=== PATIENT | female | born 1940 | race Caucasian/White ===

== ENCOUNTER 2020-12-08 07:17 | Outpatient (REF) | payer OTHER, SELFPAY ==
--- NOTE | ~2020-12-08 | MM_ITS ---
EXAMINATION: MM SCREENING DIGITAL BREAST TOMOSYNTHESIS, BILATERAL CLINICAL INFORMATION: Screening. Asymptomatic. The lifetime risk of breast cancer based on the Tyrer-Cuzick Model is 2%. COMPARISON: Mammography: 10/01/2019, 09/24/2018, 09/20/2017 TECHNIQUE: Digital breast tomosynthesis is performed in both the craniocaudal and mediolateral oblique views along with computer-aided detection (CAD). Synthesized 2D images are generated from the tomosynthesis. FINDINGS: There are scattered areas of fibroglandular density (ACR BI-RADS breast composition Category b). There are no significant masses, abnormal calcifications, or other abnormalities. Parenchymal pattern is similar to prior exams. The axilla and skin contours are unremarkable. No significant changes. MM/MM tomosynthesis screening BI IMPRESSION: No mammographic evidence of malignancy. ASSESSMENT: BI-RADS 1: Negative RECOMMENDATION: Routine annual mammography screening. This patient's information was entered into a reminder system with a target due date for their next mammogram.
== END 2020-12-08 07:18 | disposition home or self-care (01) ==
LOC: HO.MAMMO 07:17
PROVIDERS: PCP Internal Medicine; Visit Provider Internal Medicine
DX: Z12.31 Encounter for screening mammogram for malignant neoplasm of breast (principal)
CPT/HCPCS: 77063; 77067

== ENCOUNTER 2021-12-10 07:21 | Outpatient (REF) | payer OTHER, SELFPAY ==
--- NOTE | ~2021-12-10 | MM_ITS ---
EXAMINATION: MM SCREENING DIGITAL BREAST TOMOSYNTHESIS, BILATERAL CLINICAL INFORMATION: Screening. Asymptomatic. The lifetime risk of breast cancer based on the Tyrer-Cuzick Model is 2%. COMPARISON: Mammography: 12/08/2020, 10/01/2019, 09/24/2018, 09/20/2017 TECHNIQUE: Digital breast tomosynthesis is performed in both the craniocaudal and mediolateral oblique views along with computer-aided detection (CAD). Synthesized 2D images are generated from the tomosynthesis. FINDINGS: There are scattered areas of fibroglandular density (ACR BI-RADS breast composition Category b). There are no significant masses, abnormal calcifications, or other abnormalities. Parenchymal pattern is similar to prior studies. There is stable benign parenchymal asymmetries right breast upper outer quadrant similar to prior exams. No developing density. The axilla are unremarkable. MM/MM tomosynthesis screening BI IMPRESSION: No mammographic evidence of malignancy. ASSESSMENT: BI-RADS 2: Benign RECOMMENDATION: Routine annual mammography screening. This patient's information was entered into a reminder system with a target due date for their next mammogram.
== END 2021-12-10 07:22 | disposition home or self-care (01) ==
LOC: HO.MAMMO 07:21
PROVIDERS: PCP Internal Medicine; Visit Provider Internal Medicine
DX: Z12.31 Encounter for screening mammogram for malignant neoplasm of breast (principal)
CPT/HCPCS: 77063; 77067

== ENCOUNTER 2022-02-01 06:47 | Outpatient (REF) | payer OTHER, SELFPAY ==
[2022-02-01 07:01] LABS: MANUAL DIFF FLAG NO
[2022-02-01 07:22] LABS: Basophils Absolute Auto 0.1 X10*3/uL (0.0-0.2); Basophils Percent Auto 1.3 % (0-2); Eosinophils Absolute Auto 0.2 X10*3/uL (0.0-0.4); Eosinophils Percent Auto 4.5 % (0-4); Hematocrit 42.4 % (37.0-47.0); Hemoglobin 13.7 g/dl (12.0-16.0); Imm Gran Abs Auto 0.02 X10*3/uL (0.00-0.03); Imm Gran Pct Auto 0.4 % (0.0-0.4); Lymphocytes Absolute Auto 1.7 X10*3/uL (1.2-4.9); Lymphocytes Percent Auto 37.9 % (20-40); Mean Corpuscular HGB Conc 32.3 g/dl (31.0-35.0); Mean Corpuscular Hemoglobin 28.6 pg (27.0-33.0); Mean Corpuscular Volume 88.5 fL (80.0-98.0); Mean Platelet Volume 9.8 fL (9.4-12.3); Monocytes Absolute Auto 0.5 X10*3/uL (0.1-1.2); Monocytes Percent Auto 11.2 % (2-11); Neutrophils Percent Auto 44.7 % (45-73); Platelet Count 222 X10*3/uL (160-400); Red Blood Count 4.79 X10*6/uL (4.20-5.50); Red Cell Distribution Width 13.9 % (11.0-16.0); White Blood Count 4.5 X10*3/uL (4.8-10.8)
[2022-02-01 07:51] LABS: Alanine Aminotransferase 12 U/L (0-31); Albumin Level 4.4 g/dL (3.5-5.0); Alkaline Phosphatase 93 U/L (39-117); Anion Gap 12 (12-20); Aspartate Amino Transferase 21 U/L (5-31); Bilirubin Total 0.6 mg/dL (0.0-1.0); Blood Urea Nitrogen 17 mg/dL (9-16); Calcium 9.7 mg/dL (8.4-10.2); Carbon Dioxide 26 mmol/L (22-29); Chloride 107 mmol/L (96-108); Cholesterol 298 mg/dL; Estimated Glomerular Filt Rate > 60; Glucose Fasting 104 mg/dL (60-99); HDL Cholesterol 59 mg/dL; LDL Cholesterol Calculated 195 mg/dl; Potassium 4.2 mmol/L (3.3-5.1); Sodium 141 mmol/L (135-145); Total Protein 7.5 g/dL (6.5-8.0); Triglycerides 220 mg/dL
[2022-02-01 08:05] LABS: TSH reflex Free T4 1.55 uIU/mL (0.32-4.0); Vitamin D 25-OH Total 32.9 ng/mL (>30)
[2022-02-01 08:28] LABS: Appearance Urine CLEAR; Color Urine YELLOW; Glucose Urine UA NEG (NEG); Leukocyte Esterase Urine TRACE (NEG); Nitrite Urine NEG (NEG); PH 5.5 (5.0-8.0); Specific Gravity - Urine >= 1.030 (1.005-1.025); UACC Culture Trigger NO; Urine Blood 1+ (NEG); Urine Ketones NEG (NEG); Urine Protein TRACE MG/DL (NEG-TRACE)
[2022-02-01 08:39] LABS: Squamous Epithelial Cell Urine TRACE /LPF; WBC Urine 0-2 /HPF (0-4)
== END 2022-02-01 06:48 | disposition home or self-care (01) ==
LOC: HO.LAB 06:47
PROVIDERS: PCP Internal Medicine; Visit Provider Internal Medicine
DX: Z00.00 Encounter for general adult medical examination without abnormal findings (principal)
CPT/HCPCS: 36415; 80053; 80061; 81001; 82306; 84443; 85025

== ENCOUNTER 2022-09-06 14:39 | Outpatient (REF) | payer OTHER, SELFPAY ==
--- NOTE | ~2022-09-06 | XR_ITS ---
EXAMINATION: XR PELVIS CLINICAL INFORMATION: Right hip pain. COMPARISON: None TECHNIQUE: AP view of the pelvis. FINDINGS: Moderate to severe right hip and mild left degenerative joint changes are seen. Right hip findings include severe joint space narrowing, periarticular sclerosis, cyst subcortical cystic changes and remodeling of the articular surfaces. There is no acute fracture or dislocation. Mild bilateral sacroiliac degenerative joint changes. The soft tissues are unremarkable. XR/XR pelvis min 3V IMPRESSION: Moderate to severe right hip and mild left hip degenerative joint changes most consistent with osteoarthritis. No overt fracture.
--- NOTE | ~2022-09-06 | XR_ITS ---
EXAMINATION: XR LUMBOSACRAL SPINE CLINICAL INFORMATION: Low back pain. COMPARISON: Lumbar spine radiographs dated 03/29/2019. TECHNIQUE: Three views of the lumbosacral spine. FINDINGS: Mild grade 1 anterolisthesis is again seen at L4-L5 without significant change. Mild multilevel degenerative disc disease. No acute fracture. Generalized osteopenia. The soft tissues are unremarkable. XR/XR lumbar spine 2-3V IMPRESSION: Generalized osteopenia, multilevel degenerative changes and L4-L5 grade 1 anterolisthesis without significant change.
== END 2022-09-06 14:40 | disposition home or self-care (01) ==
LOC: HO.HMGCX 14:39
PROVIDERS: PCP Internal Medicine; Visit Provider Nurse Practitioner Family
DX: M25.551 Pain in right hip (principal); M25.552 Pain in left hip; M54.50 Low back pain, unspecified
CPT/HCPCS: 72100; 72190

== ENCOUNTER 2022-11-17 07:00 | Outpatient (RCR) | payer OTHER, SELFPAY ==
--- NOTE | 2022-11-17 09:33 | MHC.PT.DC ---
[facility] [place] Office [place] Office [place] Office [address] [phone] F: [phone] F: [phone] F: [phone] F: [phone] Physical Therapy Discharge Report Diagnosis: low back pain (RC) Date of Surgery: N/A Date of Evaluation: 09/28/22 Date of Discharge: 11/17/22 Treatments to Date: 12 Cancellations to Date: 0 No Shows to Date: 0 Discharge Status: Achieved Goals Improved Function Independent with HEP Discharge Summary: Paz has progressed well in therapy and demonstrates significant improvement in trunk ROM as well as increased core and hip strength. Sacroiliac pain is resolved at this time with only intermittent tightness in piriformis region. She is independent with home exercise program and self management of residual symptoms. Electronically signed by: Annette Arnold PT DPT Please sign and return to therapist. Thank you for your referral.
== END 2022-11-17 09:29 | disposition home or self-care (01) ==
LOC: HO.PT 07:00
PROVIDERS: PCP Internal Medicine; Visit Provider Internal Medicine
DX: M54.50 Low back pain, unspecified (principal)
CPT/HCPCS: 97110; 97140; 97162

== ENCOUNTER 2022-12-15 07:17 | Outpatient (REF) | payer OTHER, SELFPAY ==
--- NOTE | ~2022-12-15 | MM_ITS ---
EXAMINATION: MM SCREENING DIGITAL BREAST TOMOSYNTHESIS, BILATERAL CLINICAL INFORMATION: Screening. Asymptomatic. The lifetime risk of breast cancer based on the Tyrer-Cuzick Model is 2%. COMPARISON: Mammography: December 10, 2021 and studies dating back to September 11, 2015 TECHNIQUE: Digital breast tomosynthesis is performed in both the craniocaudal and mediolateral oblique views along with computer-aided detection (CAD). Synthesized 2D images are generated from the tomosynthesis. FINDINGS: The breasts are almost entirely fatty (ACR BI-RADS breast composition Category a). There are no significant masses, abnormal calcifications, or other abnormalities. MM/MM tomosynthesis screening BI IMPRESSION: No significant changes from prior exam. ASSESSMENT: BI-RADS 1: Negative RECOMMENDATION: Routine annual mammography screening. This patient's information was entered into a reminder system with a target due date for their next mammogram.
== END 2022-12-15 07:18 | disposition home or self-care (01) ==
LOC: HO.MAMMO 07:17
PROVIDERS: PCP Internal Medicine; Visit Provider Internal Medicine
DX: Z12.31 Encounter for screening mammogram for malignant neoplasm of breast (principal)
CPT/HCPCS: 77063; 77067

== ENCOUNTER 2023-01-02 06:18 | Outpatient (REF) | payer OTHER, SELFPAY ==
--- NOTE | ~2023-01-02 | XR_ITS ---
EXAMINATION: XR KNEE, RIGHT CLINICAL INFORMATION: Pain. COMPARISON: None available. TECHNIQUE: Four views of the right knee. FINDINGS: Bone alignment is normal. No fracture or dislocation. Degenerative meniscal calcification. Arthritis at the lateral femoral, tibial and patellofemoral joints with joint space narrowing and osteophyte formation. No joint effusion. Osteopenia. XR/XR knee RT 4V IMPRESSION: Osteopenia and degenerative changes.
[2023-01-02 08:12] LABS: Alanine Aminotransferase 13 U/L (0-31); Albumin Level 4.2 g/dL (3.5-5.0); Alkaline Phosphatase 100 U/L (39-117); Anion Gap 15 (12-20); Aspartate Amino Transferase 21 U/L (5-31); Bilirubin Total 0.6 mg/dL (0.0-1.0); Blood Urea Nitrogen 19 mg/dL (9-16); Calcium 10.2 mg/dL (8.4-10.2); Carbon Dioxide 26 mmol/L (22-29); Chloride 105 mmol/L (96-108); Cholesterol 290 mg/dL; Estimated Glomerular Filt Rate > 60; Glucose Fasting 111 mg/dL (60-99); HDL Cholesterol 59 mg/dL; LDL Cholesterol Calculated 200 mg/dl; Potassium 4.5 mmol/L (3.3-5.1); Sodium 141 mmol/L (135-145); Total Protein 7.6 g/dL (6.5-8.0); Triglycerides 157 mg/dL
[2023-01-02 08:52] LABS: Appearance Urine Clear; Color Urine Yellow; Glucose Urine UA Negative (Negative); Leukocyte Esterase Urine Small (1+) (Negative); Nitrite Urine Positive (Negative); PH 5.5 (5.0-9.0); UMIC TRIGGER UACC YES; Urine Blood Moderate (2+) (Negative); Urine Ketones Negative (Negative); Urine Protein 30 (1+) mg/dL (Neg-Trace)
[2023-01-02 09:07] LABS: Bacteria Urine 4+ (None Seen); Hyaline Casts Urine 0-2 /LPF (0-2); RBC Urine 0-2 /HPF (0-2); Squamous Epithelial Cell Urine 0-2 /HPF (0-2); UACC Culture Trigger YES
== END 2023-01-02 06:19 | disposition home or self-care (01) ==
LOC: HO.XRAY 06:18
PROVIDERS: PCP Internal Medicine; Visit Provider Internal Medicine
DX: M25.561 Pain in right knee (principal); M25.461 Effusion, right knee; E78.00 Pure hypercholesterolemia, unspecified; R82.90 Unspecified abnormal findings in urine
CPT/HCPCS: 36415; 73564; 80053; 80061; 81001; 87086; 87088; 87186

== ENCOUNTER 2023-03-08 06:26 | Inpatient (IN) | payer OTHER, MEDICARE, SELFPAY ==
[2023-03-08] VITALS (8 sets, daily range): BP systolic 134–184; BP diastolic 69–91; PULSE 67–86; RESP 16–18; TEMP 35.9–37.2; O2SAT 93–98; BMI 32.2
--- NOTE | ~2023-03-08 | CT_ITS ---
EXAMINATION: CT ABDOMEN AND PELVIS WITH CONTRAST CLINICAL INFORMATION: Right upper quadrants/lower abdominal pain COMPARISON: None available. TECHNIQUE: Multidetector volumetric images were obtained from the superior aspect of the liver through the pubic symphysis following administration 85 mL of Omnipaque 350 intravenous contrast. Sagittal and coronal reformatted images were obtained on the technologist's workstation. Oral contrast: No This CT examination was performed using dose optimization techniques as appropriate, variously including the following: *Automated exposure control *Adjustment of mA and/or kV according to patient size (this includes techniques or standardized protocols for targeted exams where dose is matched to indication/reason for exam; i.e. extremities or head) *Use of iterative reconstruction technique DLP: 562 mGy-cm FINDINGS: LUNG BASES: Emphysematous changes bibasilar atelectasis versus scarring. No pneumothorax. No large pleural effusion. LIVER, GALLBLADDER, AND BILIARY TREE: Liver is borderline enlarged and demonstrates decreased hepatic attenuation suggesting hepatic steatosis. No focal hepatic lesion or biliary ductal dilatation is present. Suggestion of dependent sludge within the intraluminal gallbladder without wall thickening or pericholecystic fluid. PANCREAS: Fatty atrophy and infiltration of the pancreas most prominent within the head and uncinate process. SPLEEN: Unremarkable. ADRENAL GLANDS: Unremarkable. KIDNEYS AND URETERS: Bilateral extrarenal pelvis sees. Nonobstructive 3 mm calculus in the right renal lower pole. No right-sided hydronephrosis. Multiple left-sided calculi largest measuring up to 7 mm. No left-sided hydronephrosis. Subcentimeter hypodense focus along the lateral aspect of the left renal lower pole, too small to characterize though statistically representing a cyst. BLADDER: Unremarkable. GASTROINTESTINAL TRACT: Colonic diverticulosis with prominent bowel wall thickening as well as pericolonic fluid of the sigmoid colon extending into the bilateral paracolic gutters and pelvis suggesting diverticulitis. The small and large bowel are unremarkable. The appendix appears surgically absent. ABDOMINAL WALL: No significant hernia is appreciated. LYMPH NODES: Normal. VASCULAR: Aorta is nonaneurysmal. Pelvic phleboliths are noted. PELVIC VISCERA: Uterus. OSSEOUS STRUCTURES: Osteopenia. Grade 1 anterolisthesis of L4 on L5. Slight anterior wedging of L1 may represent age-indeterminate compression deformity. Nonspecific sclerosis of S1. CT/CT abdomen pelvis w IV con IMPRESSION: 1. Colonic diverticulosis with prominent bowel wall thickening as well as pericolonic fluid of the sigmoid colon extending into the bilateral paracolic gutters and pelvis suggesting diverticulitis. 2. Liver is borderline enlarged and demonstrates decreased hepatic attenuation suggesting hepatic steatosis. 3. Suggestion of dependent sludge within the intraluminal gallbladder without wall thickening or pericholecystic fluid. 4. Bilateral nephrolithiasis without hydronephrosis. 5. Subcentimeter hypodense focus along the lateral aspect of the left renal lower pole, too small to characterize though statistically representing a cyst. 6. Osteopenia. Grade 1 anterolisthesis of L4 on L5. Slight anterior wedging of L1 may represent age-indeterminate compression deformity. Correlation with physical exam. Nonspecific sclerosis of S1.
--- NOTE | ~2023-03-08 | US_ITS ---
EXAMINATION: US VENOUS DUPLEX UPPER EXTREMITY, LEFT CLINICAL INFORMATION: Swelling and pain. COMPARISON: None available. TECHNIQUE: Ultrasound of the upper extremity is performed using compression sonography and color and pulse Doppler flow with assessment of augmentation of flow. There is also imaging and Doppler assessment of the jugular and subclavian veins. Spectral analysis with color-flow imaging is performed. FINDINGS: There is thrombus seen in the cephalic vein suggestive of superficial thrombophlebitis in the forearm and antecubital region and proximal upper arm. This is circumferential against the wall of the vein probably from an old IV. The brachial, basilic, axillary, visualized subclavian and internal jugular veins are all patent. The radial and ulnar veins in the forearm are patent. US/US venous duplex UE LT IMPRESSION: Extensive thrombus in the cephalic vein suggestive of superficial thrombophlebitis. Findings were communicated to Dr. Elliott by telephone on 03/12/2023 at 4:20 PM.
--- NOTE | 2023-03-08 06:37 | ED.ABDPAIN ---
HPI - Abdominal Pain General Chief Complaint: Abdominal Pain Stated Complaint: possible diverticulitis Time Seen by Provider: 03/08/23 06:34 Source: patient, RN notes reviewed and old records reviewed Mode of arrival: ambulatory History of Present Illness HPI narrative: 82 year old F w/PMHx of OA, HLD, c/o lower abdominal pain radiating to L flank x few days. Admits pain is constant with assoc nausea & constipation. Last BM yesterday. denies fever, chills, V/D, hematuria, dysuria, vaginal bleeding or d/c. denies prior abdominal surgery MD elicited complaint: abdominal pain Related Data Home Medications Medication Instructions Recorded Confirmed ascorbic acid (vitamin C) 500 mg 500 mg PO DAILY 03/08/23 03/08/23 tablet,extended release cholecalciferol (vitamin D3) 25 25 mcg PO DAILY 03/08/23 03/08/23 mcg (1,000 unit) tablet multivitamin 1 tab PO DAILY 03/08/23 03/08/23 Allergies Allergy/AdvReac Type Severity Reaction Status Date / Time codeine [CODEINE] Allergy Intermediate NAUSEA/DIZZINESS, Verified 03/08/23 06:42 nausea Review of Systems Review of Systems Constitutional: No Fever, No Chills, No Fatigue, No Malaise ENT/Mouth: No Ear Pain, No Nasal Congestion, No Sinus Pain, No Hoarseness, No sore throat, No Rhinorrhea, No Swallowing Difficulty Eyes: No Eye Pain, No Swelling, No Redness, No Vision Changes Cardiovascular: No Chest Pain, No SOB, No Edema, No Palpitations Respiratory: No Cough, No Dyspnea Gastrointestinal: + Nausea, No Vomiting, No Diarrhea, No Constipation, + Abdominal pain Genitourinary: No irregular bleeding, No Dysuria, No Urinary Frequency, No Hematuria, No Urinary Incontinence/retention, No Flank Pain Musculoskeletal: No joint pain, No Myalgias, No Joint Swelling Skin: No Skin Lesions, No rash Neuro: No Weakness, No Dizziness, No Headache Yes all other systems are reviewed and are negative Constitutional: Reports as per [facility] Past Medical History Attestation statement: The following information was validated with the patient. Source: old records reviewed Medical History Lumbar spondylosis Mixed hyperlipidemia Overweight (BMI 25.0-29.9) Primary osteoarthritis involving multiple joints Primary osteoarthritis of both hips Surgical History H/O right knee surgery Family History Family History Father No problems noted. Mother Dementia Social History Social History Housing: Condominium Alcohol intake: unknown Patient Tobacco Use Status: Never used Tobacco Smoked in Last 30 Days: No e-Cigarette/Vaping Use: Never Used Second Hand Smoke Exposure: Yes Use of substances other than those prescribed or required for medical reasons: No Advance Directives: No Advance Directives Information Provided: No Nutrition Risks: No Nutritional Risk service: No Current occupational status: employed Cognitive needs: No Hearing needs: No Vision needs: Yes Physical Exam ED Vital Signs: Vital Signs - 24 hr 03/08/23 06:38 03/08/23 07:01 03/08/23 08:43 Temperature 98.9 F Pulse Rate 86 74 71 Respiratory Rate 18 18 17 Blood Pressure 171/91 H 137/79 167/85 H Pulse Oximetry 96 94 96 Oxygen Delivery Method Room Air Room Air Room Air 03/08/23 11:17 Temperature Pulse Rate 70 Respiratory Rate 16 Blood Pressure 144/69 H Pulse Oximetry 95 Oxygen Delivery Method Room Air BMI result Body Mass Index 32.2 Const General: cooperative, healthy appearing and no acute distress Orientation/consciousness: patient oriented x3 Limitations: no limitations HENMT Head: Yes normal to inspection and Yes atraumatic Ears: hearing grossly normal bilaterally General nose exam: Normal external nose present Face and sinus: Yes normal facial exam Eyes General: appearance normal, both eyes and all related structures EOM: EOMs intact bilaterally Neck Neck: Yes normal visual inspection and Yes no meningeal signs Resp Effort & Inspection: normal respiratory effort and no respiratory distress Auscultation: clear to auscultation bilaterally Cardio Rate: regular rate Heart sounds: S1 normal heart sound present and S2 normal heart sound present GI Inspection: Yes normal to inspection Palpation (GI): Soft to palpation, Tenderness to palpation present (GI) in the LLQ, in the RLQ and in the RUQ; with no rebound tenderness, no guarding and not rigid General: Yes no CVA tenderness Back/Spine/Pelvis Back: no CVA tenderness Skin Rashes: no rashes Wounds: no wounds Neuro General: patient oriented x3, tone normal and no meningeal signs Gait exam (Neuro): Normal gait present Extrem General: Yes normal to inspection Course Course Course Narrative: -no leukocytosis. Labs otherwise reassuring. -UA infected CT abdomen pelvis w IV con IMPRESSION: 1.? Colonic diverticulosis with prominent bowel wall thickening as well as pericolonic fluid of the sigmoid colon extending into the bilateral paracolic gutters and pelvis suggesting diverticulitis. 2.? Liver is borderline enlarged and demonstrates decreased hepatic attenuation suggesting hepatic steatosis. 3.? Suggestion of dependent sludge within the intraluminal gallbladder without wall thickening or pericholecystic fluid. 4.? Bilateral nephrolithiasis without hydronephrosis. 5.? Subcentimeter hypodense focus along the lateral aspect of the left renal lower pole, too small to characterize though statistically representing a cyst. 6.? Osteopenia. Grade 1 anterolisthesis of L4 on L5. Slight anterior wedging of L1 may represent age-indeterminate compression deformity. Correlation with physical exam. Nonspecific sclerosis of S1. > 0929--on re-evaluation patient reports continued abdominal discomfort, abdomen soft stool diffusely tender > lower abdomen. Feels a bit weak discharge at this time. Will give IV morphine, additional IVF, Zosyn and plan for admission Medical Decision Making Medical Decision Making [facility] Narrative: 82 year old F w/PMHx of OA, HLD, c/o lower abdominal pain radiating to L flank x few days. On exam VSS, NAD, abdomen soft RUQ & diffuse lower tenderness, no rebound or guarding, no CVAT. Concern diverticulitis/colitis vs appendicitis vs cholecystitis/lithiasis vs renal stone/pyelo, rule out UTI. Lower suspicion for SBO at this time, rule out constipation. Unlikely mesenteric ischemia and dissection Plan: Labs, UA, CT APq, IVF, pain management Please refer to course for remaining clinical decision making, interpretation of labs/imaging results, and discussions with consultants and/or family members. Differential Diagnosis Differential Diagnoses: The differential diagnosis associated with the presentation includes As above Admission/Observation Consideration of admission/observation: Escalation of care including admission/observation considered Lab Data [facility] Lab Attestation statement: I reviewed the patient's lab results. 03/08/23 06:50 03/08/23 06:50 Labs: Lab Results 03/08/23 03/08/23 03/08/23 Range/Units 06:50 06:50 06:50 WBC 10.0 (4.8-10.8) X10*3/uL RBC 4.88 (4.20-5.50) X10*6/uL Hgb 14.0 (12.0-16.0) g/dl Hct 43.0 (37.0-47.0) % MCV 88.1 (80.0-98.0) fL MCH 28.7 (27.0-33.0) pg MCHC 32.6 (31.0-35.0) g/dl RDW 13.6 (11.0-16.0) % Plt Count 266 (160-400) X10*3/uL MPV 9.9 (9.4-12.3) fL Immature Gran % (Auto) 0.3 (0.0-0.4) % Neut % (Auto) 79.7 H (45-73) % Lymph % (Auto) 11.2 L (20-40) % Wallace % (Auto) 7.1 (2-11) % Eos % (Auto) 1.2 (0-4) % Baso % (Auto) 0.5 (0-2) % Lymph # (Auto) 1.1 L (1.2-4.9) X10*3/uL Wallace # (Auto) 0.7 (0.1-1.2) X10*3/uL Eos # (Auto) 0.1 (0.0-0.4) X10*3/uL Baso # (Auto) 0.1 (0.0-0.2) X10*3/uL Abs Immat Gran (auto) 0.03 (0.00-0.03) X10*3/uL Absolute Neuts (auto) 7.9 (2.0-8.3) x10*3/uL Absolute Nucleated RBC 0.000 (0.0-0.012) X10*3/uL Nucleated RBC % (auto) 0.0 (0.0-0.2) /100WBC PT 11.7 (11.1-13.3) SEC INR 1.0 (0.9-1.1) Sodium 141 (135-145) mmol/L Potassium 4.1 (3.3-5.1) mmol/L Chloride 106 (96-108) mmol/L Carbon Dioxide 24 (22-29) mmol/L Anion Gap 15 (12-20) BUN 15 (9-16) mg/dL Creatinine 0.83 (0.5-1.4) mg/dL Estim Creat Clear Calc 48.8 Estimated GFR > 60 Random Glucose 123 H (60-115) mg/dL Calcium 10.3 H (8.4-10.2) mg/dL Magnesium 2.0 (1.6-2.6) mg/dL Total Bilirubin 0.5 (0.0-1.0) mg/dL Direct Bilirubin 0.2 (0.0-0.5) mg/dL AST 24 (5-31) U/L ALT 16 (0-31) U/L Alkaline Phosphatase 105 (39-117) U/L Total Protein 8.2 H (6.5-8.0) g/dL Albumin 4.1 (3.5-5.0) g/dL Lipase 16 (8-78) U/L Urine Color Urine Appearance Urine pH (5.0-9.0) Ur Specific Hope (1.005-1.025) Urine Protein (Neg-Trace) mg/dL Urine Glucose (UA) (Negative) mg/dL Urine Ketones (Negative) mg/dL Urine Blood (Negative) Urine Nitrite (Negative) Ur Leukocyte Esterase (Negative) Urine RBC (0-2) /HPF Urine WBC (0-5) /HPF Ur Squamous Epith Cells (0-2) /HPF Urine Bacteria (None Seen) Hyaline Casts (0-2) /LPF 03/08/23 Range/Units 08:42 WBC (4.8-10.8) X10*3/uL RBC (4.20-5.50) X10*6/uL Hgb (12.0-16.0) g/dl Hct (37.0-47.0) % MCV (80.0-98.0) fL MCH (27.0-33.0) pg MCHC (31.0-35.0) g/dl RDW (11.0-16.0) % Plt Count (160-400) X10*3/uL MPV (9.4-12.3) fL Immature Gran % (Auto) (0.0-0.4) % Neut % (Auto) (45-73) % Lymph % (Auto) (20-40) % Wallace % (Auto) (2-11) % Eos % (Auto) (0-4) % Baso % (Auto) (0-2) % Lymph # (Auto) (1.2-4.9) X10*3/uL Wallace # (Auto) (0.1-1.2) X10*3/uL Eos # (Auto) (0.0-0.4) X10*3/uL Baso # (Auto) (0.0-0.2) X10*3/uL Abs Immat Gran (auto) (0.00-0.03) X10*3/uL Absolute Neuts (auto) (2.0-8.3) x10*3/uL Absolute Nucleated RBC (0.0-0.012) X10*3/uL Nucleated RBC % (auto) (0.0-0.2) /100WBC PT (11.1-13.3) SEC INR (0.9-1.1) Sodium (135-145) mmol/L Potassium (3.3-5.1) mmol/L Chloride (96-108) mmol/L Carbon Dioxide (22-29) mmol/L Anion Gap (12-20) BUN (9-16) mg/dL Creatinine (0.5-1.4) mg/dL Estim Creat Clear Calc Estimated GFR Random Glucose (60-115) mg/dL Calcium (8.4-10.2) mg/dL Magnesium (1.6-2.6) mg/dL Total Bilirubin (0.0-1.0) mg/dL Direct Bilirubin (0.0-0.5) mg/dL AST (5-31) U/L ALT (0-31) U/L Alkaline Phosphatase (39-117) U/L Total Protein (6.5-8.0) g/dL Albumin (3.5-5.0) g/dL Lipase (8-78) U/L Urine Color Yellow Urine Appearance Clear Urine pH 6.5 (5.0-9.0) Ur Specific Hope 1.020 (1.005-1.025) Urine Protein Negative (Neg-Trace) mg/dL Urine Glucose (UA) Negative (Negative) mg/dL Urine Ketones Negative (Negative) mg/dL Urine Blood Trace H (Negative) Urine Nitrite Negative (Negative) Ur Leukocyte Esterase Small (1+) H (Negative) Urine RBC 0-2 (0-2) /HPF Urine WBC 6-10 H (0-5) /HPF Ur Squamous Epith Cells 0-2 (0-2) /HPF Urine Bacteria None Seen (None Seen) Hyaline Casts 0-2 (0-2) /LPF Independent Interpretation I performed an independent interpretation of an: CT Scan Radiology Impression Discussion of test interpretation with radiology: I have reviewed the radiologist's reading. External Record Review External record reviewed: Inpatient record, Office record, Outpatient record, Prior outpatient labs, Prior outpatient radiology, Primary care record and Outside ED record Tests considered The following testing was considered but not selected: As above Prescription Management I considered prescription management with: Pain Medication Chronic Conditions Patient?s care impacted by: Other (HLD) Medications Administered Generic Name Dose Route Start Last Admin Trade Name Freq PRN Reason Stop Dose Admin Enoxaparin Sodium 40 mg 03/08/23 12:00 03/08/23 12:43 Enoxaparin Sodium 40 Mg/0.4 Ml Syringe SUBCUT 40 mg Q24H TRISTAN Administration Ceftriaxone Sodium 1 gm/ 50 mls @ 100 mls/hr 03/08/23 12:00 03/08/23 13:52 Sodium Chloride IV Infused Q24H TRISTAN Infusion Metronidazole 500 mg in 100 mls @ 100 mls/hr 03/08/23 12:00 03/08/23 14:57 Flagyl IV Infused Q8H TRISTAN Infusion Dextrose/Sodium Chloride 1,000 mls @ 100 mls/hr 03/08/23 12:15 03/08/23 14:41 D51/2ns IVCONT 100 mls/hr .Q10H TRISTAN Administration Sodium Chloride 3 ml 03/08/23 16:00 03/08/23 15:16 0.9 % Sodium Chloride Flush 3 Ml Syringe IVFLUSH Not Given QSHIFT TRISTAN Discontinued Medications Generic Name Dose Route Start Last Admin Trade Name Freq PRN Reason Stop Dose Admin Sodium Chloride 1,000 mls @ 999 mls/hr 03/08/23 06:45 03/08/23 09:06 Ns IV 03/08/23 07:45 Infused .Q1H1M TRISTAN Infusion Sodium Chloride 500 mls @ 999 mls/hr 03/08/23 09:30 03/08/23 11:34 Ns IV 03/08/23 10:00 Infused .Q31M TRISTAN Infusion Piperacillin Sod/Tazobactam 50 mls @ 100 mls/hr 03/08/23 09:27 03/08/23 11:34 Sod 3.375 gm/ Sodium Chloride IV 03/08/23 09:56 Infused ONCE ONE Infusion Iohexol 85 ml 03/08/23 08:02 03/08/23 08:03 Iohexol 350 Mg/Ml 100 Ml Infus..Btl IV 03/08/23 08:03 85 ml ONCE ONE Administration Morphine Sulfate 2 mg 03/08/23 09:27 03/08/23 10:34 Morphine Sulfate 2 Mg/Ml Cartridge IVPUSH 03/08/23 09:28 2 mg ONCE ONE Administration Protocol Ondansetron HCl 4 mg 03/08/23 06:42 03/08/23 06:54 Ondansetron Hcl 4 Mg/2 Ml Vial IVPUSH 03/08/23 06:43 4 mg ONCE ONE Administration Critical Care Time Critical Care Time Critical Care Time: Yes Total Critical Care Time: 35 Attestation: I have personally provided critical care time exclusive of time spent on separately billable procedures. Time includes review of lab data, radiology results, discussion with consultants, and monitoring for potential decompensation. Intervention performed as documented. Discharge Plan Discharge Clinical Impression: Acute diverticulitis Patient Disposition: Admitted As Inpatient
[2023-03-08] MEDS: 0.9 % Sodium Chloride 1,000 ML 999 ML IV (06:53)
[2023-03-08] MEDS: ondansetron HCL 4 MG/2 ML VIAL IVPUSH ×2 (06:54→15:55)
[2023-03-08 06:55] LABS: MANUAL DIFF FLAG NO
[2023-03-08 06:58] LABS: Basophils Absolute Auto 0.1 X10*3/uL (0.0-0.2); Basophils Percent Auto 0.5 % (0-2); Eosinophils Absolute Auto 0.1 X10*3/uL (0.0-0.4); Eosinophils Percent Auto 1.2 % (0-4); Imm Gran Abs Auto 0.03 X10*3/uL (0.00-0.03); Imm Gran Pct Auto 0.3 % (0.0-0.4); Lymphocytes Absolute Auto 1.1 X10*3/uL (1.2-4.9); Lymphocytes Percent Auto 11.2 % (20-40); Mean Corpuscular HGB Conc 32.6 g/dl (31.0-35.0); Mean Corpuscular Hemoglobin 28.7 pg (27.0-33.0); Mean Corpuscular Volume 88.1 fL (80.0-98.0); Mean Platelet Volume 9.9 fL (9.4-12.3); Monocytes Absolute Auto 0.7 X10*3/uL (0.1-1.2); Monocytes Percent Auto 7.1 % (2-11); Neutrophils Absolute Auto 7.9 x10*3/uL (2.0-8.3); Neutrophils Percent Auto 79.7 % (45-73); Platelet Count 266 X10*3/uL (160-400); Red Blood Count 4.88 X10*6/uL (4.20-5.50); Red Cell Distribution Width 13.6 % (11.0-16.0)
[2023-03-08 07:02] LABS: Prothrombin Time 11.7 SEC (11.1-13.3)
[2023-03-08 07:13] LABS: Alanine Aminotransferase 16 U/L (0-31); Albumin Level 4.1 g/dL (3.5-5.0); Alkaline Phosphatase 105 U/L (39-117); Anion Gap 15 (12-20); Aspartate Amino Transferase 24 U/L (5-31); Bilirubin Direct 0.2 mg/dL (0.0-0.5); Bilirubin Total 0.5 mg/dL (0.0-1.0); Blood Urea Nitrogen 15 mg/dL (9-16); Calcium 10.3 mg/dL (8.4-10.2); Carbon Dioxide 24 mmol/L (22-29); Chloride 106 mmol/L (96-108); Creatinine Clr Calc Pharmacy 48.8; Estimated Glomerular Filt Rate > 60; Glucose Random 123 mg/dL (60-115); Lipase 16 U/L (8-78); Potassium 4.1 mmol/L (3.3-5.1); Sodium 141 mmol/L (135-145); Total Protein 8.2 g/dL (6.5-8.0)
[2023-03-08] MEDS: iohexoL 350 MG/ML 100 ML INFUS..BTL 85 ML IV (08:03)
[2023-03-08 08:51] LABS: Appearance Urine Clear; Color Urine Yellow; Glucose Urine UA Negative (Negative); Leukocyte Esterase Urine Small (1+) (Negative); Nitrite Urine Negative (Negative); PH 6.5 (5.0-9.0); UMIC TRIGGER UACC YES; Urine Blood Trace (Negative); Urine Ketones Negative (Negative); Urine Protein Negative (Neg-Trace)
[2023-03-08 08:53] LABS: Bacteria Urine None Seen (None Seen); Hyaline Casts Urine 0-2 /LPF (0-2); RBC Urine 0-2 /HPF (0-2); Squamous Epithelial Cell Urine 0-2 /HPF (0-2); UACC Culture Trigger YES
--- NOTE | 2023-03-08 10:13 | PHA.MEDREC ---
Pharmacy Consult ? Medication Reconciliation Pharmacy has completed the medication reconciliation. Med rec completed by Sybil Sanchez pt only taking OTC medications. Did not include black cohosh and turmeric because it would be discontinued per protocol.
[2023-03-08] MEDS: Piperacillin Sodium/Tazobactam 3.375 GM in 0.9 % Sodium Chloride 50 ML IV (10:34)
[2023-03-08] MEDS: Morphine Sulfate 2 MG/ML CARTRIDGE IVPUSH (10:34)
[2023-03-08] MEDS: 0.9 % Sodium Chloride 500 ML 999 ML IV (10:36)
--- NOTE | 2023-03-08 10:38 | PC.NURSE ---
per OZIEL TAYLOR no need for blood cultures prior to ABX administration
--- NOTE | 2023-03-08 11:18 | P.HPHOSP_ITS ---
History of Present Illness Date of Service: 03/08/23 Attending physician on admission: Colby Adams Chief Complaint: Abdominal pain Pt is an 82-year-old female with a PMH significant for?osteoarthritis only on home vitamins who presents to the ED with 2-3 days severe abdominal pain. Pt states symptoms began a few days ago with a sharp and ?crampy pain that felt something like menstral cramps. Pain located primarily in right lower and left lower quadrants, non-radiating. Pt initially thought it was just gas and took Gas-X though it offered no relief. Patient also felt nauseous but did not vomit. Denies diarrhea. Pt's last bowel movement last night. Pain continued to worsen this morning and pt came to the ED for further evaluation. Denies fever, chills. No SOB. Denies chest pain/pressure, palpitations. In the ED patient was afebrile and hypertensive. up to 171/91. Labs were largely unremarkable. H&H, platelets WNL. Electrodes WNL. Renal function baseline. Hepatic function baseline. Lipase 16. UA likely negative with negative nitrite, positive for small leukocyte esterase and WBC of 6 to 10, no bacteria seen. CT?of abdomen and pelvis found colonic diverticulitis with prominent bowel wall thickening and pericolonic fluid suggestive of diverticulitis. Also found borderline hepatomegaly with decreased hepatic attenuation suggesting hepatic steatosis, gallbladder sludge without wall thickening or pericholecystic fluid. Pt was treated with IVF, dancing trauma, morphine, and Zosyn. Pt will be admitted to the hospital for treatment and management of diverticulitis. Review of Systems Review of Systems: Abdominal pain Nausea, no vomiting Denies fever, chills No diarrhea No chest pain/pressure palpitations Denies shortness of breath Yes all other systems are reviewed and are negative [facility] Medical History Lumbar spondylosis Mixed hyperlipidemia Overweight (BMI 25.0-29.9) Primary osteoarthritis involving multiple joints Primary osteoarthritis of both hips Family History Father No problems noted. Mother Dementia Surgical History H/O right knee surgery Social History Housing: [facility] Alcohol intake: unknown Patient Tobacco Use Status: Never used Tobacco Smoked in Last 30 Days: No e-Cigarette/Vaping Use: Never Used Second Hand Smoke Exposure: Yes Use of substances other than those prescribed or required for medical reasons: No Advance Directives: No Advance Directives Information Provided: No service: No Current occupational status: employed Cognitive needs: No Hearing needs: No Vision needs: Yes Meds Allergies Allergy/AdvReac Type Severity Reaction Status Date / Time codeine [CODEINE] Allergy Intermediate NAUSEA/DIZZINESS, Verified 03/08/23 06:42 nausea Home Medications Medication Instructions Recorded Confirmed Last Taken Type ascorbic acid (vitamin C) 500 mg 500 mg PO DAILY 03/08/23 03/08/23 Unknown History tablet,extended release cholecalciferol (vitamin D3) 25 25 mcg PO DAILY 03/08/23 03/08/23 Unknown History mcg (1,000 unit) tablet multivitamin 1 tab PO DAILY 03/08/23 03/08/23 Unknown History Physical Exam Vital Signs and Narrative: Vital Signs: Last Vital Signs Temp 98.9 F 03/08/23 06:38 Pulse 70 03/08/23 11:17 Resp 16 03/08/23 11:17 BP 144/69 H 03/08/23 11:17 Pulse Ox 95 03/08/23 11:17 O2 Del Method Room Air 03/08/23 11:17 BMI result Body Mass Index 32.2 Constitutional: Alert, in no acute distress. Mental Status: Oriented to person, place and time. Eyes: Pupils are equal, round, and reactive to light. Ear, Nose, and Throat: Oropharynx clear, mucous membranes moist. Ears and nose without deformities. Trachea midline. Respiratory: Clear to auscultation bilaterally. No wheezing, rales, or rhonchi. Cardiovascular: S1, S2 regular. No murmurs, rubs, or gallops. Gastrointestinal: Abdomen soft, non-distended, with lower abdominal tenderness especially on right and left sides. +bowel sounds. Neurologic: Cranial nerves II-XII are grossly intact bilaterally. No focal neurological deficits. Moves all extremities spontaneously. Skin: No rashes or lesions noted. Musculoskeletal: No cyanosis or clubbing. Extremities: No edema. Psychiatric: Normal mood and affect. Results Labs 03/08/23 06:50 03/08/23 06:50 Labs: Laboratory Results - last 24 hr 03/08/23 03/08/23 03/08/23 06:50 06:50 06:50 MCV 88.1 MCH 28.7 MCHC 32.6 RDW 13.6 Plt Count 266 MPV 9.9 Immature Gran % (Auto) 0.3 Neut % (Auto) 79.7 H Lymph % (Auto) 11.2 L Wilkin % (Auto) 7.1 Eos % (Auto) 1.2 Baso % (Auto) 0.5 Lymph # (Auto) 1.1 L Wilkin # (Auto) 0.7 Eos # (Auto) 0.1 Baso # (Auto) 0.1 Abs Immat Gran (auto) 0.03 Absolute Neuts (auto) 7.9 Absolute Nucleated RBC 0.000 Nucleated RBC % (auto) 0.0 PT 11.7 INR 1.0 Anion Gap 15 Estim Creat Clear Calc 48.8 Estimated GFR > 60 Random Glucose 123 H Calcium 10.3 H Magnesium 2.0 Total Bilirubin 0.5 Direct Bilirubin 0.2 AST 24 ALT 16 Alkaline Phosphatase 105 Total Protein 8.2 H Albumin 4.1 Lipase 16 Urine Color Urine Appearance Urine pH Ur Specific [place] Urine Protein Urine Glucose (UA) Urine Ketones Urine Blood Urine Nitrite Ur Leukocyte Esterase Urine RBC Urine WBC Ur Squamous Epith Cells Urine Bacteria Hyaline Casts 03/08/23 08:42 MCV MCH MCHC RDW Plt Count MPV Immature Gran % (Auto) Neut % (Auto) Lymph % (Auto) Wilkin % (Auto) Eos % (Auto) Baso % (Auto) Lymph # (Auto) Wilkin # (Auto) Eos # (Auto) Baso # (Auto) Abs Immat Gran (auto) Absolute Neuts (auto) Absolute Nucleated RBC Nucleated RBC % (auto) PT INR Anion Gap Estim Creat Clear Calc Estimated GFR Random Glucose Calcium Magnesium Total Bilirubin Direct Bilirubin AST ALT Alkaline Phosphatase Total Protein Albumin Lipase Urine Color Yellow Urine Appearance Clear Urine pH 6.5 Ur Specific [place] 1.020 Urine Protein Negative Urine Glucose (UA) Negative Urine Ketones Negative Urine Blood Trace H Urine Nitrite Negative Ur Leukocyte Esterase Small (1+) H Urine RBC 0-2 Urine WBC 6-10 H Ur Squamous Epith Cells 0-2 Urine Bacteria None Seen Hyaline Casts 0-2 Imaging Radiologist's Impressions: Impressions Abdomen/Pelvis CT 08/09/23 07:56 IMPRESSION: 1. Colonic diverticulosis with prominent bowel wall thickening as well as pericolonic fluid of the sigmoid colon extending into the bilateral paracolic gutters and pelvis suggesting diverticulitis. 2. Liver is borderline enlarged and demonstrates decreased hepatic attenuation suggesting hepatic steatosis. 3. Suggestion of dependent sludge within the intraluminal gallbladder without wall thickening or pericholecystic fluid. 4. Bilateral nephrolithiasis without hydronephrosis. 5. Subcentimeter hypodense focus along the lateral aspect of the left renal lower pole, too small to characterize though statistically representing a cyst. 6. Osteopenia. Grade 1 anterolisthesis of L4 on L5. Slight anterior wedging of L1 may represent age-indeterminate compression deformity. Correlation with physical exam. Nonspecific sclerosis of S1. Assessment and Plan (1) Acute diverticulitis: Status: Acute Plan Pt is an 82-year-old female with a PMH significant for?osteoarthritis only on home vitamins who presents to the ED with 2-3 days severe abdominal pain. Diverticulitis CT with prominent bowel wall thickening and pericolonic fluid suggestive of diverticulitis IV antibiotics: Ceftriaxone, Flagyl Analgesics for pain management IVF: D5 1/2NS Clear liquid diet now, advance as tolerated Follow BMP Osteoarthritis Patient with ?bone on bone of her hips Has appointment next Monday for surgical evaluation F/U outpaitent with ortho Full Code Attending:?Dr. Adams DVT Prophylaxis: Lovenox Pt will require a hospitalization of at least two nights for treatment and management of?acute diverticulitis with IV antibiotics. Time Spent With Patient Time: Total time managing care of this patient today ____ minutes. Quality Stroke Does the patient have a stroke diagnosis?: No VTE Prior VTE?: No VTE Risk Level:: Medical - moderate - high VTE Device Contraindication: Treatment Not Indicated VTE Drug Contraindication: N/A - Med Ordered
[2023-03-08] MEDS: cefTRIAXone sodium 1 GM in 0.9 % Sodium Chloride 50 ML IV (12:43)
[2023-03-08] MEDS: Enoxaparin Sodium 40 MG/0.4 ML SYRINGE SUBCUT (12:43)
[2023-03-08] MEDS: metroNIDAZOLE/NS 500 MG/100 ML PIGGYBACK 100 MG IV ×2 (13:41→20:39)
[2023-03-08] MEDS: Dextrose 5 % and 0.45 % NaCl 1,000 ML 100 ML IVCONT ×2 (14:41→23:43)
[2023-03-08] MEDS: Morphine Sulfate 4 MG/ML CARTRIDGE IVPUSH (15:55)
[2023-03-08] MEDS: Prochlorperazine Edisylate 10 MG/2 ML VIAL 5 MG IVPUSH (20:39)
[2023-03-08] MEDS: 0.9 % Sodium Chloride Flush 3 ML SYRINGE IVFLUSH (23:44)
[2023-03-09 03:00] VITALS: BP 135/64; PULSE 70; RESP 18; TEMP 36.3; O2SAT 94
[2023-03-09] MEDS: metroNIDAZOLE/NS 500 MG/100 ML PIGGYBACK 100 MG IV ×3 (04:06→20:11)
[2023-03-09 06:48] LABS: Hematocrit 35.2 % (37.0-47.0); Hemoglobin 11.5 g/dl (12.0-16.0); Mean Corpuscular HGB Conc 32.7 g/dl (31.0-35.0); Mean Corpuscular Hemoglobin 28.5 pg (27.0-33.0); Mean Corpuscular Volume 87.3 fL (80.0-98.0); Mean Platelet Volume 10.1 fL (9.4-12.3); Platelet Count 223 X10*3/uL (160-400); Red Blood Count 4.03 X10*6/uL (4.20-5.50); Red Cell Distribution Width 13.8 % (11.0-16.0); White Blood Count 8.4 X10*3/uL (4.8-10.8)
[2023-03-09 07:03] LABS: Anion Gap 11 (12-20); Blood Urea Nitrogen 9 mg/dL (9-16); Calcium 9.5 mg/dL (8.4-10.2); Carbon Dioxide 26 mmol/L (22-29); Chloride 107 mmol/L (96-108); Estimated Glomerular Filt Rate > 60; Glucose Random 112 mg/dL (60-115); Potassium 3.9 mmol/L (3.3-5.1); Sodium 140 mmol/L (135-145)
[2023-03-09 07:11] VITALS: BP 121/64; PULSE 61; RESP 20; TEMP 37.1; O2SAT 95
--- NOTE | 2023-03-09 08:38 | MHC.CM.PN ---
CM met with Patient at bedside. 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 Home/self care is the goal and CM has initiated and will follow for dc planning. Patient's PCP is Dr. Sergo Sauer.
[2023-03-09] MEDS: Cholecalciferol (Vitamin D3) 25 MCG TABLET PO (08:42)
[2023-03-09] MEDS: Multivitamin TABLET 1 TAB PO (08:42)
[2023-03-09] MEDS: 0.9 % Sodium Chloride Flush 3 ML SYRINGE IVFLUSH ×2 (08:43→20:12)
[2023-03-09] MEDS: Dextrose 5 % and 0.45 % NaCl 1,000 ML 100 ML IVCONT (08:49)
[2023-03-09] MEDS: Dextrose 5 % and Lactated Ring 1,000 ML 100 ML IVCONT ×2 (10:11→20:11)
[2023-03-09] MEDS: Milk of Magnesia 30 ML ORAL.SUSP PO (10:11)
[2023-03-09] MEDS: cefTRIAXone sodium 1 GM in 0.9 % Sodium Chloride 50 ML IV (11:55)
[2023-03-09] MEDS: Enoxaparin Sodium 40 MG/0.4 ML SYRINGE SUBCUT (12:49)
--- NOTE | 2023-03-09 13:02 | HO.PM.IMPN ---
Subjective Subjective Date of Service: 03/09/23 Interval History: Complaining of bilateral lower quadrant abdominal pain, denies fever chills, no bowel movement in last 2 days, on clear liquid diets, no worsening pain with clears, denies headache, lightheadedness. Review of Systems All other system reviewed and negative Physical Exam Vital Signs: Vital Signs: Last Vital Signs Temp 98.8 F 03/09/23 07:11 Pulse 61 03/09/23 07:11 Resp 20 03/09/23 07:11 BP 121/64 03/09/23 07:11 Pulse Ox 95 03/09/23 07:11 O2 Del Method Room Air 03/09/23 07:11 BMI result Body Mass Index 32.2 Const: Other: General awake alert x3, resting comfortably in no acute distress. Neck supple no JVD. CVS regular rate rhythm, Respiratory lungs clear to auscultation, no respiratory distress, no wheeze, no rhonchi. Gastrointestinal abdomen soft, bilateral lower quadrant tenderness with palpation,bowel sounds audible, no guarding , no rigidity. Extremities no edema. Neuro non focal Skin no rash Psych appropriate affect Objective Data Active Medications Acetaminophen (Acetaminophen 325 Mg Tablet) 650 mg PO Q6H PRN PRN Reason: Pain, Mild (Pain Scale 1-3) Docusate Sodium (Docusate Sodium 100 Mg Capsule) 100 mg PO DAILY PRN PRN Reason: Constipation Enoxaparin Sodium (Enoxaparin Sodium 40 Mg/0.4 Ml Syringe) 40 mg SUBCUT Q24H [facility] Last Admin: 03/09/23 12:49 Dose: 40 mg Documented By: SULEMA Ceftriaxone Sodium 1 gm/ (Sodium Chloride) 50 mls @ 100 mls/hr IV Q24H [facility] Last Infusion: 03/09/23 12:48 Dose: 0 mls/hr Documented By: SULEMA Metronidazole (Flagyl) 500 mg in 100 mls @ 100 mls/hr IV Q8H [facility] Last Admin: 03/09/23 12:49 Dose: 100 mls/hr Documented By: SULEMA Dextrose/Lactated Ringer's (D5lr) 1,000 mls @ 100 mls/hr IVCONT .Q10H [facility] Last Admin: 03/09/23 10:11 Dose: 100 mls/hr Documented By: SULEMA Morphine Sulfate (Morphine Sulfate 4 Mg/Ml Cartridge) 4 mg IVPUSH Q4H PRN; Protocol PRN Reason: Pain, Severe (Pain Scale 7-10) Last Admin: 03/08/23 15:55 Dose: 4 mg Documented By: ANNAMARIE Multivitamins/Vitamin C (Multivitamin Tablet) 1 tab PO DAILY [facility] Last Admin: 03/09/23 08:42 Dose: 1 tab Documented By: SULEMA Ondansetron HCl (Ondansetron Hcl 4 Mg/2 Ml Vial) 4 mg IVPUSH Q8H PRN PRN Reason: Nausea and Vomiting Last Admin: 03/08/23 15:55 Dose: 4 mg Documented By: ANNAMARIE Sodium Chloride (0.9 % Sodium Chloride Flush 3 Ml Syringe) 3 ml IVFLUSH QSHIFT [facility] Last Admin: 03/09/23 08:43 Dose: 3 ml Documented By: SULEMA Vitamin D (Cholecalciferol (Vitamin D3) 25 Mcg Tablet) 25 mcg PO DAILY [facility] Last Admin: 03/09/23 08:42 Dose: 25 mcg Documented By: SULEMA Labs 03/09/23 06:15 03/09/23 06:15 Labs: Laboratory Results - last 24 hr 03/09/23 03/09/23 06:15 06:15 MCV 87.3 MCH 28.5 MCHC 32.7 RDW 13.8 Plt Count 223 MPV 10.1 Absolute Nucleated RBC 0.000 Nucleated RBC % (auto) 0.0 Anion Gap 11 L Estim Creat Clear Calc 54.0 Estimated GFR > 60 Random Glucose 112 Calcium 9.5 D Assessment and Plan (1) Acute diverticulitis: Status: Acute Plan 82-year-old female with a PMH significant for?osteoarthritis only on home vitamins who presents to the ED with 2-3 days severe abdominal pain. Acute Diverticulitis CT with prominent bowel wall thickening as well as pericolonic fluid of the sigmoid colon extending into the bilateral paracolic gutters and pelvis suggesting diverticulitis. Continue IV Ceftriaxone, Flagyl day 2/7 Will give milk of Mag x1 Continue IV fluid, IV morphine and clear liquid diet for now Normal WBC , drop in hematocrit likely dilutional, no bleeding noted, stable renal function and electrolytes, Follow BMP Hip Osteoarthritis Patient with ?bone on bone of her hips Has appointment next Monday for surgical evaluation F/U outpaitent with ortho Full Code DVT Prophylaxis: Lovenox Pt will require continued inpatient hospitalization for?acute diverticulitis with IV antibiotics. Time Spent With Patient Time: Total time managing care of this patient today ____ minutes. Quality Stroke Does the patient have a stroke diagnosis?: No VTE Prior VTE?: No VTE Risk Level:: Medical - moderate - high VTE Device Contraindication: Treatment Not Indicated VTE Drug Contraindication: N/A - Med Ordered
[2023-03-09 16:00] VITALS: BP 172/77; PULSE 69; RESP 18; TEMP 36.1; O2SAT 95
[2023-03-09] MEDS: ondansetron HCL 4 MG/2 ML VIAL IVPUSH (16:32)
[2023-03-09 17:31] VITALS: BP 168/72
[2023-03-09 19:15] VITALS: BP 147/72; PULSE 68; RESP 14; TEMP 37.3; O2SAT 96
[2023-03-09] MEDS: Ketorolac Tromethamine 15 MG/ML VIAL IVPUSH (21:06)
[2023-03-10 04:00] VITALS: BP 163/76; PULSE 69; RESP 15; TEMP 37.2; O2SAT 95
[2023-03-10] MEDS: metroNIDAZOLE/NS 500 MG/100 ML PIGGYBACK 100 MG IV ×3 (04:20→19:48)
[2023-03-10] MEDS: Dextrose 5 % and Lactated Ring 1,000 ML 100 ML IVCONT ×2 (05:55→19:44)
[2023-03-10 06:26] LABS: Hematocrit 35.6 % (37.0-47.0); Hemoglobin 11.6 g/dl (12.0-16.0); Mean Corpuscular HGB Conc 32.6 g/dl (31.0-35.0); Mean Platelet Volume 9.6 fL (9.4-12.3); Platelet Count 218 X10*3/uL (160-400); Red Blood Count 4.14 X10*6/uL (4.20-5.50); Red Cell Distribution Width 13.5 % (11.0-16.0); White Blood Count 7.2 X10*3/uL (4.8-10.8)
[2023-03-10 06:38] LABS: Anion Gap 13 (12-20); Blood Urea Nitrogen 4 mg/dL (9-16); Calcium 9.2 mg/dL (8.4-10.2); Carbon Dioxide 26 mmol/L (22-29); Chloride 108 mmol/L (96-108); Estimated Glomerular Filt Rate > 60; Glucose Random 115 mg/dL (60-115); Potassium 3.5 mmol/L (3.3-5.1); Sodium 143 mmol/L (135-145)
[2023-03-10 07:22] VITALS: BP 161/73; PULSE 55; RESP 20; TEMP 36.4; O2SAT 96
[2023-03-10] MEDS: Cholecalciferol (Vitamin D3) 25 MCG TABLET PO (09:38)
[2023-03-10] MEDS: Multivitamin TABLET 1 TAB PO (09:38)
[2023-03-10] MEDS: 0.9 % Sodium Chloride Flush 3 ML SYRINGE IVFLUSH ×3 (09:39→19:49)
--- NOTE | 2023-03-10 10:36 | MHC.CM.PN ---
Addendum entered by Rachel Ghotra RN 03/10/23 10:37: PT REMAINS ON IV FLUIDS AND IV ABX. Original Note: EMR REVIEWED, PER HOSPITALIST PLAN TO SLOWLY ADVANCE DIET, NO PLAN FOR D/C TODAY, CM WILL CONT TO FOLLOW D/C NEEDS.
[2023-03-10] MEDS: cefTRIAXone sodium 1 GM in 0.9 % Sodium Chloride 50 ML IV (11:24)
[2023-03-10] MEDS: Enoxaparin Sodium 40 MG/0.4 ML SYRINGE SUBCUT (11:25)
[2023-03-10 15:51] VITALS: BP 161/81; PULSE 58; RESP 20; TEMP 37.7; O2SAT 94
--- NOTE | 2023-03-10 16:50 | HO.PM.IMPN ---
Subjective Subjective Date of Service: 03/10/23 Interval History: Slowly improving; minimal pain. Tolerating clear liquid diet Review of Systems Denies chest pain Denies shortness of breath Denies nausea vomiting diarrhea Admits mild abdominal pain Physical Exam Vital Signs: Vital Signs: Last Vital Signs Temp 99.8 F 03/10/23 15:51 Pulse 58 03/10/23 15:51 Resp 20 03/10/23 15:51 BP 161/81 H 03/10/23 15:51 Pulse Ox 94 03/10/23 15:51 O2 Del Method Room Air 03/10/23 15:51 BMI result Body Mass Index 32.2 Const: Other: Awake alert no acute distress Resp: Other: Clear to auscultation bilaterally no rales rhonchi or wheezes Cardio: Other: No S4; positive S1-S2; no S3 murmurs rubs or gallops GI: Other: Soft nontender nondistended normoactive bowel sounds Extrem: Other: No edema bilaterally Objective Data Active Medications Acetaminophen (Acetaminophen 325 Mg Tablet) 650 mg PO Q6H PRN PRN Reason: Pain, Mild (Pain Scale 1-3) Docusate Sodium (Docusate Sodium 100 Mg Capsule) 100 mg PO DAILY PRN PRN Reason: Constipation Enoxaparin Sodium (Enoxaparin Sodium 40 Mg/0.4 Ml Syringe) 40 mg SUBCUT Q24H [facility] Last Admin: 03/10/23 11:25 Dose: 40 mg Documented By: BRENDA Ceftriaxone Sodium 1 gm/ (Sodium Chloride) 50 mls @ 100 mls/hr IV Q24H [facility] Last Infusion: 03/10/23 12:11 Dose: 0 mls/hr Documented By: BRENDA Metronidazole (Flagyl) 500 mg in 100 mls @ 100 mls/hr IV Q8H [facility] Last Infusion: 03/10/23 14:47 Dose: 0 mls/hr Documented By: BRENDA Dextrose/Lactated Ringer's (D5lr) 1,000 mls @ 100 mls/hr IVCONT .Q10H [facility] Last Infusion: 03/10/23 14:45 Dose: 100 mls/hr Documented By: BRENDA Morphine Sulfate (Morphine Sulfate 4 Mg/Ml Cartridge) 4 mg IVPUSH Q4H PRN; Protocol PRN Reason: Pain, Severe (Pain Scale 7-10) Last Admin: 03/08/23 15:55 Dose: 4 mg Documented By: ANNAMARIE Multivitamins/Vitamin C (Multivitamin Tablet) 1 tab PO DAILY [facility] Last Admin: 03/10/23 09:38 Dose: 1 tab Documented By: BRENDA Ondansetron HCl (Ondansetron Hcl 4 Mg/2 Ml Vial) 4 mg IVPUSH Q8H PRN PRN Reason: Nausea and Vomiting Last Admin: 03/09/23 16:32 Dose: 4 mg Documented By: SULEMA Sodium Chloride (0.9 % Sodium Chloride Flush 3 Ml Syringe) 3 ml IVFLUSH QSHIFT [facility] Last Admin: 03/10/23 14:47 Dose: 3 ml Documented By: BRENDA Vitamin D (Cholecalciferol (Vitamin D3) 25 Mcg Tablet) 25 mcg PO DAILY [facility] Last Admin: 03/10/23 09:38 Dose: 25 mcg Documented By: BRENDA Labs 03/10/23 06:18 03/10/23 06:18 Labs: Laboratory Results - last 24 hr 03/10/23 03/10/23 06:18 06:18 MCV 86.0 MCH 28.0 MCHC 32.6 RDW 13.5 Plt Count 218 MPV 9.6 Absolute Nucleated RBC 0.000 Nucleated RBC % (auto) 0.0 Anion Gap 13 Estim Creat Clear Calc 57.0 Estimated GFR > 60 Random Glucose 115 Calcium 9.2 Microbiology Microbiology Results: Microbiology 03/08/23 Unknown Urine Culture - Final Urine clean catch - Urine de jesus top Assessment and Plan (1) Acute diverticulitis: Status: Acute (2) Primary osteoarthritis of both hips: Status: Acute Plan 82-year-old female with a PMH significant for?osteoarthritis only on home vitamins who presents to the ED with 2-3 days severe abdominal pain; CT scan consistent with sigmoid diverticulitis 1.Acute Diverticulitis -Ceftriaxone/Flagyl (10/04) -IV fluid/pain management -advance diet to full liquids.. . If tolerated full diet in a.m. 3.Bilat Hip Osteoarthritis -conservatives -outpatient follow-up Full Code Kimber Will require continued inpatient hospitalization for treatment of?acute diverticulitis with IV antibiotics. Time Spent With Patient Time: Total time managing care of this patient today ____ minutes. Quality Stroke Does the patient have a stroke diagnosis?: No VTE Prior VTE?: No VTE Risk Level:: Medical - moderate - high VTE Device Contraindication: Treatment Not Indicated VTE Drug Contraindication: N/A - Med Ordered
[2023-03-10 20:00] VITALS: BP 168/82; PULSE 62; RESP 18; TEMP 37.2; O2SAT 95
[2023-03-11] MEDS: metroNIDAZOLE/NS 500 MG/100 ML PIGGYBACK 100 MG IV ×3 (02:47→19:29)
[2023-03-11 03:01] VITALS: BP 165/84; PULSE 66; RESP 18; TEMP 37; O2SAT 96
[2023-03-11 07:11] VITALS: BP 164/81; PULSE 73; RESP 18; TEMP 36.9; O2SAT 94
[2023-03-11] MEDS: Multivitamin TABLET 1 TAB PO (08:53)
[2023-03-11] MEDS: Cholecalciferol (Vitamin D3) 25 MCG TABLET PO (08:53)
[2023-03-11] MEDS: 0.9 % Sodium Chloride Flush 3 ML SYRINGE IVFLUSH ×3 (08:53→19:29)
[2023-03-11] MEDS: cefTRIAXone sodium 1 GM in 0.9 % Sodium Chloride 50 ML IV (12:18)
[2023-03-11] MEDS: Enoxaparin Sodium 40 MG/0.4 ML SYRINGE SUBCUT (12:18)
--- NOTE | 2023-03-11 14:50 | P.PNIM_ITS ---
Subjective Subjective Date of Service: 03/11/23 Interval History: Doing well with advancement of diet. Pain control adequate Review of Systems Denies chest pain Denies shortness of breath Denies nausea vomiting diarrhea Admits mild abdominal pain Physical Exam Vital Signs: Vital Signs: Last Vital Signs Temp 98.4 F 03/11/23 07:11 Pulse 73 03/11/23 07:11 Resp 18 03/11/23 07:11 BP 164/81 H 03/11/23 07:11 Pulse Ox 94 03/11/23 07:11 O2 Del Method Room Air 03/11/23 07:11 BMI result Body Mass Index 32.2 Const: Other: Awake alert no acute distress Resp: Other: Clear to auscultation bilaterally no rales rhonchi or wheezes Cardio: Other: No S4; positive S1-S2; no S3 murmurs rubs or gallops GI: Other: Soft nontender nondistended normoactive bowel sounds Extrem: Other: No edema bilaterally Objective Data Active Medications Acetaminophen (Acetaminophen 325 Mg Tablet) 650 mg PO Q6H PRN PRN Reason: Pain, Mild (Pain Scale 1-3) Docusate Sodium (Docusate Sodium 100 Mg Capsule) 100 mg PO DAILY PRN PRN Reason: Constipation Enoxaparin Sodium (Enoxaparin Sodium 40 Mg/0.4 Ml Syringe) 40 mg SUBCUT Q24H [facility] Last Admin: 03/11/23 12:18 Dose: 40 mg Documented By: KRISTIN Ceftriaxone Sodium 1 gm/ (Sodium Chloride) 50 mls @ 100 mls/hr IV Q24H [facility] Last Infusion: 03/11/23 13:02 Dose: 0 mls/hr Documented By: KRISTIN Metronidazole (Flagyl) 500 mg in 100 mls @ 100 mls/hr IV Q8H [facility] Last Infusion: 03/11/23 14:17 Dose: 0 mls/hr Documented By: KRISTIN Morphine Sulfate (Morphine Sulfate 4 Mg/Ml Cartridge) 4 mg IVPUSH Q4H PRN; Protocol PRN Reason: Pain, Severe (Pain Scale 7-10) Last Admin: 03/08/23 15:55 Dose: 4 mg Documented By: ANNAMARIE Multivitamins/Vitamin C (Multivitamin Tablet) 1 tab PO DAILY [facility] Last Admin: 03/11/23 08:53 Dose: 1 tab Documented By: KRISTIN Ondansetron HCl (Ondansetron Hcl 4 Mg/2 Ml Vial) 4 mg IVPUSH Q8H PRN PRN Reason: Nausea and Vomiting Last Admin: 03/09/23 16:32 Dose: 4 mg Documented By: SULEMA Sodium Chloride (0.9 % Sodium Chloride Flush 3 Ml Syringe) 3 ml IVFLUSH QSHIFT [facility] Last Admin: 03/11/23 12:58 Dose: 3 ml Documented By: KRISTIN Vitamin D (Cholecalciferol (Vitamin D3) 25 Mcg Tablet) 25 mcg PO DAILY [facility] Last Admin: 03/11/23 08:53 Dose: 25 mcg Documented By: KRISTIN Labs 03/10/23 06:18 03/10/23 06:18 Assessment and Plan (1) Acute diverticulitis: Status: Acute Plan 82-year-old female with a PMH significant for?osteoarthritis only on home vitamins who presents to the ED with 2-3 days severe abdominal pain; CT scan consistent with sigmoid diverticulitis 1.Acute Diverticulitis -Ceftriaxone/Flagyl (11/04) -IV fluid/pain management -advance diet to low residue -follow clinically 2.Bilat Hip Osteoarthritis -conservatives -outpatient follow-up Full Code Catrachitax Will require continued inpatient hospitalization for treatment of?acute diverticulitis with IV antibiotics. Time Spent With Patient Time: Total time managing care of this patient today ____ minutes. Quality Stroke Does the patient have a stroke diagnosis?: No VTE Prior VTE?: No VTE Risk Level:: Medical - moderate - high VTE Device Contraindication: Treatment Not Indicated VTE Drug Contraindication: N/A - Med Ordered
[2023-03-11 15:57] VITALS: BP 146/86; PULSE 66; RESP 16; TEMP 37.1; O2SAT 96
[2023-03-11 19:39] VITALS: BP 158/90; PULSE 70; RESP 20; TEMP 37.6; O2SAT 97
[2023-03-12 00:38] VITALS: BP 154/77; PULSE 69; RESP 16; TEMP 37.7; O2SAT 96
[2023-03-12] MEDS: metroNIDAZOLE/NS 500 MG/100 ML PIGGYBACK 100 MG IV ×3 (03:38→20:06)
[2023-03-12 04:00] VITALS: BP 145/70; PULSE 63; RESP 16; TEMP 36.9; O2SAT 94
[2023-03-12 07:12] VITALS: BP 162/79; PULSE 68; RESP 18; TEMP 36.9; O2SAT 95
[2023-03-12] MEDS: 0.9 % Sodium Chloride Flush 3 ML SYRINGE IVFLUSH ×2 (07:57→20:00)
[2023-03-12] MEDS: Multivitamin TABLET 1 TAB PO (07:58)
[2023-03-12] MEDS: Cholecalciferol (Vitamin D3) 25 MCG TABLET PO (07:58)
[2023-03-12] MEDS: Enoxaparin Sodium 40 MG/0.4 ML SYRINGE SUBCUT (11:11)
[2023-03-12] MEDS: cefTRIAXone sodium 1 GM in 0.9 % Sodium Chloride 50 ML IV (11:12)
[2023-03-12 15:19] VITALS: BP 163/86; PULSE 74; RESP 20; TEMP 36.7; O2SAT 96
--- NOTE | 2023-03-12 16:48 | P.PNIM_ITS ---
Subjective Subjective Date of Service: 03/12/23 Interval History: Tolerating diet with minimal nausea. Left arm edematous and tender secondary to multiple IV access Review of Systems Denies chest pain Denies shortness of breath Denies nausea vomiting diarrhea Admits mild abdominal pain Physical Exam Vital Signs: Vital Signs: Last Vital Signs Temp 98.1 F 03/12/23 15:19 Pulse 74 03/12/23 15:19 Resp 20 03/12/23 15:19 BP 163/86 H 03/12/23 15:19 Pulse Ox 96 03/12/23 15:19 O2 Del Method Room Air 03/12/23 15:19 BMI result Body Mass Index 32.2 Const: Other: Awake alert no acute distress Resp: Other: Clear to auscultation bilaterally no rales rhonchi or wheezes Cardio: Other: No S4; positive S1-S2; no S3 murmurs rubs or gallops GI: Other: Soft nontender nondistended normoactive bowel sounds Extrem: Other: No edema bilaterally Objective Data Active Medications Acetaminophen (Acetaminophen 325 Mg Tablet) 650 mg PO Q6H PRN PRN Reason: Pain, Mild (Pain Scale 1-3) Docusate Sodium (Docusate Sodium 100 Mg Capsule) 100 mg PO DAILY PRN PRN Reason: Constipation Enoxaparin Sodium (Enoxaparin Sodium 40 Mg/0.4 Ml Syringe) 40 mg SUBCUT Q24H [facility] Last Admin: 03/12/23 11:11 Dose: 40 mg Documented By: KRISTIN Ceftriaxone Sodium 1 gm/ (Sodium Chloride) 50 mls @ 100 mls/hr IV Q24H [facility] Last Infusion: 03/12/23 11:50 Dose: 0 mls/hr Documented By: KRISTIN Metronidazole (Flagyl) 500 mg in 100 mls @ 100 mls/hr IV Q8H [facility] Last Infusion: 03/12/23 13:00 Dose: 0 mls/hr Documented By: KRISTIN Morphine Sulfate (Morphine Sulfate 4 Mg/Ml Cartridge) 4 mg IVPUSH Q4H PRN; Protocol PRN Reason: Pain, Severe (Pain Scale 7-10) Last Admin: 03/08/23 15:55 Dose: 4 mg Documented By: ANNAMARIE Multivitamins/Vitamin C (Multivitamin Tablet) 1 tab PO DAILY [facility] Last Admin: 03/12/23 07:58 Dose: 1 tab Documented By: KRISTIN Ondansetron HCl (Ondansetron Hcl 4 Mg/2 Ml Vial) 4 mg IVPUSH Q8H PRN PRN Reason: Nausea and Vomiting Last Admin: 03/09/23 16:32 Dose: 4 mg Documented By: SULEMA Sodium Chloride (0.9 % Sodium Chloride Flush 3 Ml Syringe) 3 ml IVFLUSH QSHIFT [facility] Last Admin: 03/12/23 07:57 Dose: 3 ml Documented By: KRISTIN Vitamin D (Cholecalciferol (Vitamin D3) 25 Mcg Tablet) 25 mcg PO DAILY [facility] Last Admin: 03/12/23 07:58 Dose: 25 mcg Documented By: KRISTIN Labs 03/10/23 06:18 03/10/23 06:18 Assessment and Plan (1) Acute diverticulitis: Status: Acute Plan 82-year-old female with a PMH significant for?osteoarthritis only on home vitamins who presents to the ED with 2-3 days severe abdominal pain; CT scan consistent with sigmoid diverticulitis 1.Acute Diverticulitis -Ceftriaxone/Flagyl (12/04) -IV fluid/pain management -tolerating low residue -follow clinically 2. Superficial thrombophlebitis -discussed with radiology; given extensive nature of clot and increased edema over last 24 hours will treat with Eliquis. -will discuss with PCP prior to discharge 3.Bilat Hip Osteoarthritis -conservatives -outpatient follow-up Full Code Kristinanox Will require continued inpatient hospitalization for treatment of?acute diverti culitis with IV antibiotics. Time Spent With Patient Time: Total time managing care of this patient today ____ minutes. Quality Stroke Does the patient have a stroke diagnosis?: No VTE Prior VTE?: No VTE Risk Level:: Medical - moderate - high VTE Device Contraindication: Treatment Not Indicated VTE Drug Contraindication: N/A - Med Ordered
[2023-03-12 19:02] VITALS: BP 143/74; PULSE 66; RESP 20; TEMP 37.3; O2SAT 97
[2023-03-12] MEDS: Apixaban 5 MG TABLET 10 MG PO (20:00)
[2023-03-13 03:52] VITALS: BP 136/73; PULSE 62; RESP 16; TEMP 37.1; O2SAT 95
--- NOTE | 2023-03-13 04:47 | PC.NURSE ---
Assumed care 19:00 on 03/12. Patient A&Ox4. VSS. Per handoff report and pt, only evening vitals tonight so pt can get some rest. Care clustered in best effort to achieve this. Hyperactive BSx4, abdomen soft, non-tender. Denies n/v. Continues on abx.
[2023-03-13] MEDS: metroNIDAZOLE/NS 500 MG/100 ML PIGGYBACK 100 MG IV (06:54)
[2023-03-13 07:34] VITALS: BP 149/85; PULSE 61; RESP 18; TEMP 36.1; O2SAT 94
[2023-03-13] MEDS: Cholecalciferol (Vitamin D3) 25 MCG TABLET PO (08:17)
[2023-03-13] MEDS: 0.9 % Sodium Chloride Flush 3 ML SYRINGE IVFLUSH (08:17)
[2023-03-13] MEDS: Apixaban 5 MG TABLET 10 MG PO (08:17)
[2023-03-13] MEDS: Multivitamin TABLET 1 TAB PO (08:17)
--- NOTE | 2023-03-13 10:22 | MHC.CM.PN ---
Pt medically cleared for D/C home, self-care, pts to transport.
--- NOTE | 2023-03-13 11:24 | P.DS_ITS ---
DS: Providers Provider Date of Service: 03/13/23 Date of admission: 03/08/23 11:48 Date of discharge: 03/13/23 Primary care physician: Sergo Sauer MD DS: Diagnosis Discharge Diagnosis (1) Acute diverticulitis: Status: Acute DS: Summary Hospital Course Hospital Course: 82-year-old female with a PMH significant for?osteoarthritis only on home vitamins who presents to the ED with 2-3 days severe abdominal pain. Pt states symptoms began a few days ago with a sharp and ?crampy pain that felt something like menstral cramps. Pain? located primarily in right lower and left lower quadrants, non-radiating. Pt initially thought it was just gas and took Gas-X though it offered no relief.? Patient also felt nauseous but did not vomit.? Denies diarrhea. Pt's last bowel movement last night. Pain continued to worsen this morning and pt came to the ED for further evaluation. Denies fever, chills. No SOB. Denies chest pain/pressure, palpitations. In the ED patient was afebrile and hypertensive. up to 171/91. Labs were largely unremarkable.? H&H, platelets WNL.? Electrodes WNL.? Renal function baseline.? Hepatic function baseline.? Lipase 16.? UA likely negative with negative nitrite, positive for small leukocyte esterase and WBC of 6 to 10, no bacteria seen. CT?of abdomen and pelvis found colonic diverticulitis with prominent bowel wall thickening and pericolonic fluid suggestive of diverticulitis.? Also found borderline hepatomegaly with decreased hepatic attenuation suggesting hepatic steatosis, gallbladder sludge without wall thickening or pericholecystic fluid. Pt was treated with IVF, morphine, and Zosyn. Pt will be admitted to the hospital for treatment and management of diverticulitis. [facility] Patient admitted to general medical floor on ceftriaxone and metronidazole. Over the 1st 48 hours patient was maintained on clear liquid and pain control was adequate. Diet was slowly advanced to the point where she was tolerating a full low residue diet without pain. Of note, she required multiple IVs second nelly to infiltration especially on left upper extremity. This subsequently became red tender and swollen. Venous duplex was done of left upper extremity which failed to demonstrate a true DVT; it did demonstrate however an extensive thrombus burden in the cephalic vein suggestive of acute thrombophlebitis. Given the continued swelling of her left upper extremity pain and clot burden it was decided to start her on Eliquis 10 mg daily for a week followed by 5 mg twice daily. She has been instructed to return home with warm compresses. Message sent to PCP. Upon his re-evaluation the decision can be weight to stop Eliquis in favor of aspirin or continue. Patient will be discharged to home to complete a course of oral Augmentin and follow-up when able with PCP Time Spent with Patient Time attestation: Total time managing care of this patient today ____ minutes. Discharge coordination time: Greater than 30 minutes Quality: Safe Use of Opioids Does Pt have an Active Cancer Diagnosis on the Problem List?: No Quality: Stroke Does the patient have a stroke diagnosis?: No Physical Exam Vital Signs: Vital Signs: Last Vital Signs Temp 97.0 F 03/13/23 07:34 Pulse 61 03/13/23 07:34 Resp 18 03/13/23 07:34 BP 149/85 H 03/13/23 07:34 Pulse Ox 94 03/13/23 07:34 O2 Del Method Room Air 03/13/23 07:34 BMI result Body Mass Index 32.2 Const: Other: Awake alert no acute distress Resp: Other: Clear to auscultation bilaterally no rales rhonchi or wheezes Cardio: Other: No S4; positive S1-S2; no S3 murmurs rubs or gallops GI: Other: Soft nontender nondistended normoactive bowel sounds Extrem: Other: Moderate edema left upper extremity with erythema; no increase since 03/12 Discharge Plan Discharge Anticipated Discharge Date/Time: 03/13/23 11:15 Patient Disposition: Home, Self-Care Discharge Diagnosis: Acute DIverticulitis Referrals: Sergo Sauer MD [Primary Care Provider] - 1 Week Discharge Medications: New Eliquis 5 mg Tablet 10 mg PO BID Qty: 14 0RF amoxicillin-pot clavulanate 875-125 mg tablet 1 tab PO BID Qty: 14 0RF Continued multivitamin Tablet 1 tab PO DAILY ascorbic acid (vitamin C) 500 mg Tablet Extended Release 500 mg PO DAILY cholecalciferol (vitamin D3) 25 mcg (1,000 unit) Tablet 25 mcg PO DAILY Discharge Orders: Discharge Order (Routine); Ordered 03/13/23 Ordered By: Dean Elliott Diet: Advance to usual diet Activity on Discharge: As tolerated Stand Alone Forms: Patient Portal Discharge page Care Plan Goals: Resume all meds as pre-hospital Health Concerns: Start Eliquis 5 mg 2 tabs twice a day for 1 week. Then start Eliquis 1 tab twice a day until seen by PCP. Complete course of Augmentin 875 mg twice daily for 1 week Plan of Treatment: Follow-up with PCP 2 weeks Assessment: See discharge summary
== END 2023-03-13 12:17 | disposition home or self-care (01) | DRG 392 ==
LOC: HO.ED 09:35 → HO.EDOVER 11:53 → HO.IMC 17:55
PROVIDERS: Hospitalist; Physician Assistant; Admitting Provider Student in an Organized Health Care Education/Training Program; Emergency Provider Emergency Medicine; PCP Internal Medicine; Visit Provider Hospitalist
DX: K57.32 Diverticulitis of large intestine without perforation or abscess without bleeding (principal); T80.1XXA Vascular complications following infusion, transfusion and therapeutic injection, initial encounter; M16.0 Bilateral primary osteoarthritis of hip; E78.2 Mixed hyperlipidemia; I80.8 Phlebitis and thrombophlebitis of other sites; Z88.0 Allergy status to penicillin; Z79.899 Other long term (current) drug therapy
CPT/HCPCS: 36415; 74177; 80048; 80076; 81001; 83690; 83735; 85025; 85027; 85610; 87086; 93971; 99285; J0696; J1650; J1885; J2270; J2405; J2543; Q9967

== ENCOUNTER → 2023-03-08 11:48 | Outpatient (BNV) | payer OTHER, SELFPAY | PROVIDERS: Admitting Provider Student in an Organized Health Care Education/Training Program; Emergency Provider Emergency Medicine; PCP Internal Medicine; Visit Provider Hospitalist | DX: K57.92 Diverticulitis of intestine, part unspecified, without perforation or abscess without bleeding (principal) | CPT/HCPCS: 99223; 99233; 99239 ==

== ENCOUNTER 2023-04-14 14:48 | Outpatient (AMB) | payer OTHER, SELFPAY ==
--- NOTE | 2023-04-14 14:52 | A.OFFPC_ITS ---
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 Required: No Accompanied by: Self / Same As Patient Allergies codeine [CODEINE] Allergy (Intermediate, Verified 04/16/23 12:06) NAUSEA/DIZZINESS, nausea Medication List - Last Reconciled 04/16/23 by Sergo Sauer MD ascorbic acid (vitamin C) ER 500 mg PO DAILY cholecalciferol (vitamin D3) 25 mcg PO DAILY multivitamin 1 tab PO DAILY Tobacco use date assessed: 04/14/23 Fall risk assessment: No Falls in past year Last assessed Fall Risk: 04/14/23 Dental Screening Dental Screen Date: 04/14/23 Did you have a dental visit in the last 12 months?: Yes Did you have a dental problem in the last 6 months where you did not have access to dental care?: No Was dental information given to patient?: Patient has dentist HPI [facility] [place]//Diverticulitis HPI Details Patient comes in today for her HDF follow up visit States that she currently feels okay Was admitted to the hospital for a few days last month for a bout of acute diverticulitis when she presented to the ER with a few days of worsening bila teral lower abdominal cramping pain with nausea Abdominal and pelvic CT done revealed colonic diverticulitis with prominent bowel wall thickening and pericolonic fluid suggestive of diverticulitis She was started on IV ceftriaxone and metronidazole and maintained on a clear liquid diet with pain control and her abdominal symptoms gradually improved However, during her admission, she required multiple IVs due to infiltration especially on her left upper extremity, with subsequently became red, tender and swollen A venous Doppler of the left upper extremity was done, which revealed on extensive thrombus burden and the cephalic vein suggestive of acute thrombophlebitis She was started on Eliquis and was transitioned to oral Augmentin 875 mg BID and was instructed to follow-up with her PCP in a few days Patient states that however she was not able to get an appointment until today, which is over a month since she was last discharged States that she has since stopped taking her Eliquis when she also completed her Augmentin a week after her discharge from the hospital She currently denies any nausea, vomiting or abdominal pain and states that she has not had any recurrence of her symptoms since last month She denies any chest pains or shortness of breath States that she was seen by Orthopedics last month on 03/14/2023 and is scheduled to have a right hip replacement surgery done by Dr. Coe of [facility] on 06/13/2023 and will probably need a preop medical clearance for surgery before then [facility] Medical History Primary osteoarthritis of both hips Mixed hyperlipidemia Overweight (BMI 25.0-29.9) Primary osteoarthritis involving multiple joints Lumbar spondylosis Surgical History H/O right knee surgery Family History Father No problems noted. Mother Dementia Social History Household Members: Spouse Housing: House Alcohol intake: unknown Patient Tobacco Use Status: Never used Tobacco e-Cigarette/Vaping Use: Never Used Second Hand Smoke Exposure: Yes service: No Current occupational status: employed Cognitive needs: No Hearing needs: No Vision needs: Yes Questionnaire PHQ-9 Over the last 2 weeks, how often have you been bothered by any of the following problems? 1. Little interest or pleasure in doing things: not at all 2. Feeling down, depressed, or hopeless: several days 3. Trouble falling or staying asleep, or sleeping too much: not at all 4. Feeling tired or having little energy: not at all 5. Poor appetite or overeating: not at all 6. Feeling bad about yourself - or that you are a failure or have let yourself or your family down: not at all 7. Trouble concentrating on things, such as reading the newspaper or watching television: not at all 8. Moving or speaking so slowly that other people could have noticed. Or the opposite - being so fidgety or restless that you have been moving around a lot m ore than usual: not at all 9. Thoughts that you would be better off or of hurting yourself in some way: not at all Total score: 1 Depression Screening Interpretation: Negative 45836 - PHQ-9 Billing: Yes Source: Developed by Drs. Holden Lion, Priya Acharya, Bucky Alcantar and colleagues, with an educational amber from [employer]. Thrive Questionnaire Date Thrive assessed: 04/14/23 I am a: Patient What is your living situation today?: I have a steady place to live Within the past 12 months, did the food you bought not last and you didn't have the money to get more?: Never true Within the past 12 months, did you worry whether your food would run out before you got money to buy more?: Never true Do you have trouble paying for medicines?: No Do you have trouble getting transportation to medical appointments?: No Do you have trouble paying your heating and electricity bill?: No Do you have trouble taking care of your child, family member or friend?: No Do you have trouble with day-to-day activities such as bathing, preparing meals, shopping, managing finances, etc.?: No Are you currently unemployed and looking for a job?: No Are you interested in more education?: No Please select the resources that you would like help with: None Currently or been in a relationship where the following occur: no concerns reported AUDIT C Alcohol Use Questionnaire (AUDIT-C) 1. How often do you have a drink containing alcohol?: Never 3. How often do you have six or more drinks on one occasion?: Never Total Score: 0 Score Reviewed/Action Taken: Yes SHREYAS-7 AMB Questionnaire SHREYAS-7 Date SHREYAS - 7 assessed: 04/14/23 Feeling nervous, anxious, or on edge: 0 = Not at all Not being able to stop or control worryin = Not at all Worrying too much about different things: 0 = Not at all Trouble relaxin = Not at all Being so restless that it is hard to sit still: 0 = Not at all Becoming easily annoyed or irritable: 0 = Not at all Feeling afraid as if something awful might happen: 0 = Not at all Total SHREYAS-7 score (0-4 normal; 5-9 mild; 10-14 moderate; 15-21 severe): 0 Source: Developed by Drs. Holden Lion, Priya Acharya, Bucky Alcantar and colleagues, with an educational amber from [employer]. Review of Systems Const Denies fatigue, Denies fever(s) and Denies headache(s) ENT Denies dysphagia, Denies dizziness, Denies otalgia, Denies headache(s), Denies odynophagia and Denies sore throat Card Denies chest pain, Denies palpitations and Denies dyspnea Resp Denies cough and Denies dyspnea GI Denies abdominal pain, Denies hematochezia, Denies constipation, Denies dysphagia, Denies diarrhea, Denies nausea, Denies odynophagia and Denies vomiting Denies difficulty voiding, Reports nocturia and Denies dysuria Musc Reports back pain (over the lower back - chronic) and Reports arthralgias (involving both hips, worse on the right side) Neuro Denies dizziness and Denies headache(s) Endo Denies fatigue and Denies palpitations Physical exam (Primary Care) Vital Signs: Last Vital Signs Pulse 78 04/14/23 14:53 BP 118/66 04/14/23 14:53 Pulse Ox 98 04/14/23 14:53 Oxygen Delivery Method Room Air 04/14/23 14:53 BMI result Body Mass Index 29.7 Tobacco/Smoking Status: Tobacco use Status Tobacco use date assessed 04/14/23 04/14/23 15:02 Patient Tobacco Use Status Never used Tobacco 04/14/23 15:02 e-Cigarette/Vaping Use Never Used 04/14/23 15:02 PHQ-9: PHQ-9 Score PHQ-9: Total score 1 04/14/23 15:53 Depression Screening Interpretation: Negative Thrive Assessment: Date of Thrive Assessment Date Thrive assessed 04/14/23 04/14/23 15:02 Currently or been in a relationship where the following occur: no concerns reported Const General: no acute distress and alert HENMT Throat: Yes posterior oropharynx normal and Yes tonsils normal Neck Neck: Yes no lymphadenopathy and Yes supple Resp Auscultation: clear to auscultation bilaterally, no rales and no wheezes Cardio Rate: regular rate Rhythm: regular rhythm Heart sounds: no murmurs GI Palpation (GI): Soft to palpation and nontender Auscultation: normal bowel sounds Back/Spine/Pelvis Thoracic/Lumbar Spine: lumbar spinal tenderness Extrem General: Yes no clubbing, cyanosis or edema Right lower extremity: hip/thigh Details: tenderness Location: of the hip Left lower extremity: hip/thigh Details: tenderness Location: of the hip Assessment and Plan Assessment & Plan (1) Diverticulitis: Code(s): K57.92 - Diverticulitis of intestine, part unspecified, without perforation or abscess without bleeding Plan: S/P antibiotic Tx and appears to have resolved completely with no lingering or recurring symptoms (2) Superficial thrombophlebitis of left upper extremity: Code(s): I80.8 - Phlebitis and thrombophlebitis of other sites Plan: Venous doppler of the left upper extremity done last month revealed extensive thrombus in the cephalic vein suggestive of superficial thrombophlebitis; all of the other veins of the left upper extremity, including the brachial, basilic, axillary, radial and ulnar veins are all patent Patient was started on Eliquis 5 mg BID and discharged on the medication with instruction to follow-up with PCP APRIL but she took the medication only for about a week and self-discontinued it States that the previous swelling and pain in her left arm have resolved with treatment and does not feel that she needs to continue on the medication Will at least send her for a repeat venous doppler of the left upper extremity for further evaluation to help determine as well if she needs further anticoagulation treatment or not (3) Mixed hyperlipidemia: Code(s): E78.2 - Mixed hyperlipidemia Plan: Patient is reminded that her most recent cholesterol numbers were still elevated but she still prefers NOT to take any cholesterol-lowering Rx Reinforced low cholesterol diet (4) Lumbar spondylosis: Code(s): M47.816 - Spondylosis without myelopathy or radiculopathy, lumbar region Plan: Reinforced activity and weight-lifting restrictions Has been on Gabapentin 100 mg TID for years although patient is unclear why she is on the medication - states that Dr. Meyer reportedly just told her she needs the medication but is most likely taking this for chronic pain, involving primarily her lower back She has since stopped taking this and is currently not on any Rx for pain - prefers not to take anything unless she needs to (5) Primary osteoarthritis involving multiple joints: Code(s): M15.9 - Polyosteoarthritis, unspecified Plan: X-rays done a couple of years ago revealed (+) mild bilateral SI joint arthritis, bilateral hip arthritis and degenerative changes of the right knee although patient states that her low back pain, hip pain and knee pain are mostly tolerable States that she takes some OTC Tylenol as needed for pain and also takes Glucosamine supplements daily, which she feels are helping with her arthritis Was prescribed Meloxicam and Cyclobenzaprine in the past to take as needed but it appears that she has also not taken these in a while now Is now following up with [facility] (was last seen about a month ago) and states that she is currently scheduled to have right hip replacement surgery with Dr. Coe on 06/13/2023 Plan Will have patient return next month for her preop medical examination for clearance for her upcoming hip surgery in May 2023 Orders: Orders US venous duplex UE LT 04/14/23 I82.622 - Acute embolism and thrombosis of deep veins of left upper extremity Coding Level of Care Code Est Pt Level 4 (72226) Diagnoses Diverticulitis K57.92 Superficial thrombophlebitis of left upper extremity I80.8 Mixed hyperlipidemia E78.2 Lumbar spondylosis M47.816 Primary osteoarthritis involving multiple joints M15.9
[2023-04-14 14:53] VITALS: BP 118/66; PULSE 78; O2SAT 98; BMI 29.7
== END 2023-04-14 16:00 | disposition home or self-care (01) ==
PROVIDERS: PCP Internal Medicine; Visit Provider Internal Medicine
DX: K57.92 Diverticulitis of intestine, part unspecified, without perforation or abscess without bleeding (principal); I80.8 Phlebitis and thrombophlebitis of other sites; E78.2 Mixed hyperlipidemia; M47.816 Spondylosis without myelopathy or radiculopathy, lumbar region; M15.9 Polyosteoarthritis, unspecified
CPT/HCPCS: 99214

== ENCOUNTER 2023-04-18 16:19 | Outpatient (REF) | payer OTHER, SELFPAY ==
--- NOTE | ~2023-04-18 | US_ITS ---
EXAMINATION: US VENOUS WITH DOPPLER UPPER EXTREMITY, LEFT CLINICAL INFORMATION: Follow-up left upper extremity superficial thrombophlebitis. COMPARISON: 03/12/2023. TECHNIQUE: Ultrasound of the upper extremity is performed using compression sonography and color and pulse Doppler flow with assessment of augmentation of flow. There is also imaging and Doppler assessment of the jugular and subclavian veins. Spectral analysis with color-flow imaging is performed. FINDINGS: Respiratory variation, normal compression, and augmented flow are noted throughout the upper extremity including the axillary, brachial, cubital, and radial and ulnar veins. There is normal flow in the internal jugular and subclavian veins. No evidence for DVT. The previously seen cephalic vein superficial thrombophlebitis has resolved. There is a tiny residual branch vessel in the forearm with thrombophlebitis. US/US venous duplex UE LT IMPRESSION: Negative for DVT in the left upper extremity. Previously seen cephalic vein superficial thrombophlebitis has resolved. There is a tiny residual branch vessel in the forearm with a small volume of clot consistent with minimal residual/recurrent thrombophlebitis.
== END 2023-04-18 16:20 | disposition home or self-care (01) ==
LOC: HO.US 16:19
PROVIDERS: Visit Provider Internal Medicine
DX: I82.622 Acute embolism and thrombosis of deep veins of left upper extremity (principal)
CPT/HCPCS: 93971

== ENCOUNTER 2023-05-04 16:20 | Outpatient (REF) | payer OTHER, SELFPAY | END 2023-05-04 16:21 | disposition home or self-care (01) | LOC: HO.US 16:20 | PROVIDERS: PCP Internal Medicine; Visit Provider Orthopaedic Surgery | DX: M79.604 Pain in right leg (principal) | CPT/HCPCS: 93971 ==

== ENCOUNTER 2023-09-02 08:30 | Outpatient (REF) | payer OTHER, SELFPAY ==
[2023-09-02 09:12] LABS: Basophils Percent Auto 0.8 % (0-2); Eosinophils Absolute Auto 0.2 X10*3/uL (0.0-0.4); Eosinophils Percent Auto 3.5 % (0-4); Hematocrit 40.4 % (37.0-47.0); Imm Gran Abs Auto 0.01 X10*3/uL (0.00-0.03); Imm Gran Pct Auto 0.2 % (0.0-0.4); Lymphocytes Absolute Auto 1.1 X10*3/uL (1.2-4.9); Lymphocytes Percent Auto 23.5 % (20-40); MANUAL DIFF FLAG NO; Mean Corpuscular HGB Conc 32.2 g/dl (31.0-35.0); Mean Corpuscular Hemoglobin 27.8 pg (27.0-33.0); Mean Corpuscular Volume 86.5 fL (80.0-98.0); Mean Platelet Volume 9.8 fL (9.4-12.3); Monocytes Absolute Auto 0.5 X10*3/uL (0.1-1.2); Monocytes Percent Auto 9.4 % (2-11); Neutrophils Percent Auto 62.6 % (45-73); Platelet Count 226 X10*3/uL (160-400); Red Blood Count 4.67 X10*6/uL (4.20-5.50); Red Cell Distribution Width 14.5 % (11.0-16.0); White Blood Count 4.8 X10*3/uL (4.8-10.8)
[2023-09-02 09:19] LABS: Appearance Urine Cloudy; Color Urine Yellow; Glucose Urine UA Negative (Negative); Leukocyte Esterase Urine Large (3+) (Negative); Nitrite Urine Negative (Negative); UMIC TRIGGER UACC YES; Urine Blood Small (1+) (Negative); Urine Ketones Negative (Negative); Urine Protein 30 (1+) mg/dL (Neg-Trace)
[2023-09-02 09:21] LABS: Bacteria Urine 4+ (None Seen); Hyaline Casts Urine 0-2 /LPF (0-2); Squamous Epithelial Cell Urine 0-2 /HPF (0-2); UACC Culture Trigger YES; WBC Urine >50 /HPF (0-5)
[2023-09-02 13:24] LABS: Estimated Average Glucose 111 mg/dL; Hemoglobin A1c % 5.5 % (<6.0)
[2023-09-02 13:26] LABS: Alanine Aminotransferase 12 U/L (0-31); Alkaline Phosphatase 103 U/L (39-117); Anion Gap 15 (12-20); Aspartate Amino Transferase 22 U/L (5-31); Bilirubin Total 0.4 mg/dL (0.0-1.0); Blood Urea Nitrogen 13 mg/dL (9-16); Calcium 9.5 mg/dL (8.4-10.2); Carbon Dioxide 24 mmol/L (22-29); Chloride 108 mmol/L (96-108); Cholesterol 251 mg/dL (<200); Estimated Glomerular Filt Rate > 60; Glucose Random 98 mg/dL (60-115); HDL Cholesterol 55 mg/dL (>40); LDL Cholesterol Calculated 155 mg/dL (<100); Potassium 4.5 mmol/L (3.3-5.1); Sodium 142 mmol/L (135-145); Total Protein 7.6 g/dL (6.5-8.0); Triglycerides 208 mg/dL (<150)
== END 2023-09-02 08:31 | disposition home or self-care (01) ==
LOC: HO.LAB 08:30
PROVIDERS: PCP Internal Medicine; Visit Provider Internal Medicine
DX: Z13.89 Encounter for screening for other disorder (principal)
CPT/HCPCS: 36415; 80053; 80061; 81001; 83036; 85025; 87086; 87088; 87186

== ENCOUNTER 2023-09-08 15:56 | Outpatient (AMB) | payer OTHER, SELFPAY ==
[2023-09-08 15:58] VITALS: BP 136/80; PULSE 80; O2SAT 92; BMI 30.5
--- NOTE | 2023-09-08 15:58 | A.OFFPC_ITS ---
Vital Signs 09/08/23 15:58 Height 5 ft 1 in Weight 161 lb 6 oz BMI 30.5 BP 136/80 Blood Pressure Location Lt brachial Position Sitting Pulse 80 Pulse Source Pulse Oximeter Pulse Oximetry (%) 92 Oxygen Delivery Method Room Air Intake Visit Reasons: 6 month f/u (rescheduled) Defective Cigarette Slitter Required: No Accompanied by: Self / Same As Patient Allergies codeine [CODEINE] Allergy (Intermediate, Verified 09/08/23 16:30) NAUSEA/DIZZINESS, nausea Medication List - Last Reconciled 09/08/23 by Sergo Sauer MD ascorbic acid (vitamin C) ER 500 mg PO DAILY cholecalciferol (vitamin D3) 25 mcg PO DAILY multivitamin 1 tab PO DAILY Tobacco use date assessed: 09/08/23 Fall risk assessment: No Falls in past year Last assessed Fall Risk: 09/08/23 Dental Screening Dental Screen Date: 09/08/23 Did you have a dental visit in the last 12 months?: Yes Did you have a dental problem in the last 6 months where you did not have access to dental care?: No Was dental information given to patient?: Patient has dentist HPI 6 month f/u (rescheduled) HPI Details Patient comes in today for her follow up visit States that she feels okay She underwent a total right hip arthroplasty back in May 2023 - states that her surgery went well and she currently has no significant pain or issues in her right hip She denies any headaches or dizziness Denies any chest pains, no SOB No nausea/vomiting, no abdominal pain No change in bowel habits noted Had her follow up labs done last week - to discuss her results Adds that she is scheduled for some dental procedures next week and was advised by orthopedics that she needs to get some Abx prophylaxis from her PCP before she goes for her procedure [facility] Medical History Primary osteoarthritis of both hips Mixed hyperlipidemia Overweight (BMI 25.0-29.9) Primary osteoarthritis involving multiple joints Lumbar spondylosis Surgical History (Updated 09/08/23 @ 16:37 by Sergo Sauer MD) History of arthroplasty of right hip (~05/2023) Family History Father No problems noted. Mother Dementia Social History Household Members: Spouse Housing: House Alcohol intake: unknown Patient Tobacco Use Status: Never used Tobacco e-Cigarette/Vaping Use: Never Used Second Hand Smoke Exposure: Yes service: No Current occupational status: employed Cognitive needs: No Hearing needs: No Vision needs: Yes Questionnaire PHQ-9 Over the last 2 weeks, how often have you been bothered by any of the following problems? 1. Little interest or pleasure in doing things: not at all 2. Feeling down, depressed, or hopeless: several days 3. Trouble falling or staying asleep, or sleeping too much: not at all 4. Feeling tired or having little energy: not at all 5. Poor appetite or overeating: not at all 6. Feeling bad about yourself - or that you are a failure or have let yourself or your family down: not at all 7. Trouble concentrating on things, such as reading the newspaper or watching television: not at all 8. Moving or speaking so slowly that other people could have noticed. Or the opposite - being so fidgety or restless that you have been moving around a lot more than usual: not at all 9. Thoughts that you would be better off or of hurting yourself in some way: not at all Total score: 1 Depression Screening Interpretation: Negative Depression Screening Done: Yes 66917 - PHQ-9 Billing: Yes Source: Developed by Drs. Holden Lion, Priya Acharya, Bucky Alcantar and colleagues, with an educational amber from [employer]. Thrive Questionnaire Date Thrive assessed: 09/08/23 I am a: Patient What is your living situation today?: I have a steady place to live Within the past 12 months, did the food you bought not last and you didn't have the money to get more?: Never true Within the past 12 months, did you worry whether your food would run out before you got money to buy more?: Never true Do you have trouble paying for medicines?: No Do you have trouble getting transportation to medical appointments?: No Do you have trouble paying your heating and electricity bill?: No Do you have trouble taking care of your child, family member or friend?: No Do you have trouble with day-to-day activities such as bathing, preparing meals, shopping, managing finances, etc.?: No Are you currently unemployed and looking for a job?: No Are you interested in more education?: No Please select the resources that you would like help with: None Currently or been in a relationship where the following occur: no concerns reported THRIVE Score: 0 AUDIT C Alcohol Use Questionnaire (AUDIT-C) 1. How often do you have a drink containing alcohol?: Never 3. How often do you have six or more drinks on one occasion?: Never Total Score: 0 Score Reviewed/Action Taken: Yes SHREYAS-7 AMB Questionnaire SHREYAS-7 Date SHREYAS - 7 assessed: 09/08/23 Feeling nervous, anxious, or on edge: 0 = Not at all Not being able to stop or control worryin = Not at all Worrying too much about different things: 0 = Not at all Trouble relaxin = Not at all Being so restless that it is hard to sit still: 0 = Not at all Becoming easily annoyed or irritable: 0 = Not at all Feeling afraid as if something awful might happen: 0 = Not at all Total SHREYAS-7 score (0-4 normal; 5-9 mild; 10-14 moderate; 15-21 severe): 0 Source: Developed by Drs. Holden Lion, Priya Acharya, Bucky Alcantar and colleagues, with an educational amber from [employer]. Review of Systems Const Denies chills, Denies fatigue, Denies fever(s) and Denies headache(s) ENT Denies dysphagia, Denies dizziness, Denies otalgia, Denies headache(s), Denies neck pain, Denies odynophagia and Denies sore throat Card Denies chest pain, Denies palpitations and Denies dyspnea Resp Denies cough and Denies dyspnea GI Denies abdominal pain, Denies constipation, Denies dysphagia, Denies heartburn, Denies diarrhea, Denies nausea, Denies odynophagia and Denies vomiting Denies difficulty voiding, Denies nocturia, Denies dysuria and Denies urinary urgency Musc Denies back pain, Denies arthralgias and Denies neck pain Skin/Breast Denies rash Neuro Denies dizziness and Denies headache(s) Endo Denies fatigue and Denies palpitations Physical exam (Primary Care) Vital Signs: Last Vital Signs Pulse 80 09/08/23 15:58 BP 136/80 09/08/23 15:58 Pulse Ox 92 09/08/23 15:58 Oxygen Delivery Method Room Air 09/08/23 15:58 BMI result Body Mass Index 30.5 Tobacco/Smoking Status: Tobacco use Status Tobacco use date assessed 09/08/23 09/08/23 15:59 Patient Tobacco Use Status Never used Tobacco 09/08/23 15:59 e-Cigarette/Vaping Use Never Used 09/08/23 15:59 PHQ-9: PHQ-9 Score PHQ-9: Total score 1 09/08/23 16:41 Depression Screening Interpretation: Negative Thrive Assessment: Date of Thrive Assessment Date Thrive assessed 09/08/23 09/08/23 15:59 Currently or been in a relationship where the following occur: no concerns reported Const General: no acute distress and alert HENMT Ears: TM's normal bilaterally and EAC's normal Throat: Yes posterior oropharynx normal and Yes tonsils normal Neck Neck: Yes no lymphadenopathy and Yes supple Resp Auscultation: clear to auscultation bilaterally, no rales and no wheezes Cardio Rate: regular rate Rhythm: regular rhythm Heart sounds: no murmurs GI Palpation (GI): Soft to palpation and nontender Auscultation: normal bowel sounds Extrem General: Yes no clubbing, cyanosis or edema Right lower extremity: hip/thigh Details: normal ROM; no tenderness Left lower extremity: hip/thigh (minimal) Details: tenderness Location: of the hip Results Reviewed Results Reviewed: Laboratory Tests 01/02/23 01/02/23 09/02/23 06:31 06:31 08:42 WBC 4.8 Hgb 13.0 Hct 40.4 Plt Count 226 Sodium Potassium Creatinine Estimated GFR Random Glucose Hemoglobin A1c % Calcium AST ALT Triglycerides 157 Cholesterol LDL Cholesterol, Calc 200 HDL Cholesterol Ur Specific [place] Urine Protein Urine Glucose (UA) Urine Blood 09/02/23 09/02/23 09/02/23 08:54 08:54 Unknown WBC Hgb Hct Plt Count Sodium 142 Potassium 4.5 Creatinine 0.77 Estimated GFR > 60 Random Glucose 98 Hemoglobin A1c % 5.5 Calcium 9.5 AST ALT Triglycerides 208 H Cholesterol 251 H LDL Cholesterol, Calc HDL Cholesterol Ur Specific [place] 1.010 Urine Protein 30 (1+) H Urine Glucose (UA) Negative Urine Blood Small (1+) H 09/02/23 09/02/23 09/02/23 Unknown Unknown Unknown WBC Hgb Hct Plt Count Sodium Potassium Creatinine Estimated GFR Random Glucose Hemoglobin A1c % Calcium AST 22 ALT Triglycerides Cholesterol LDL Cholesterol, Calc 155 H HDL Cholesterol 55 Ur Specific [place] Urine Protein Urine Glucose (UA) Urine Blood 09/02/23 Unknown WBC Hgb Hct Plt Count Sodium Potassium Creatinine Estimated GFR Random Glucose Hemoglobin A1c % Calcium AST ALT 12 Triglycerides Cholesterol LDL Cholesterol, Calc HDL Cholesterol Ur Specific [place] Urine Protein Urine Glucose (UA) Urine Blood Assessment and Plan Assessment & Plan (1) Mixed hyperlipidemia: Code(s): E78.2 - Mixed hyperlipidemia Plan: Results of her labs done last week reviewed and discussed with patient - she is advised that her cholesterol numbers are still elevated but they have improved significantly from last year Reinforced low cholesterol diet - patient still prefers NOT to take any cholesterol-lowering Rx (2) Lumbar spondylosis: Code(s): M47.816 - Spondylosis without myelopathy or radiculopathy, lumbar region Plan: Reinforced activity and weight-lifting restrictions Has been on Gabapentin 100 mg TID for years although patient is unclear why she is on the medication - states that Dr. Meyer reportedly just told her she needs the medication but is most likely taking this for chronic pain, involving primarily her lower back She has since stopped taking this and is currently not on any Rx for pain - prefers not to take anything unless she needs to (3) Primary osteoarthritis involving multiple joints: Code(s): M15.9 - Polyosteoarthritis, unspecified Plan: X-rays done a couple of years ago revealed (+) mild bilateral SI joint arthritis, bilateral hip arthritis and degenerative changes of the right knee although patient states that her low back pain, hip pain and knee pain are mostly tolerable States that she takes some OTC Tylenol as needed for pain and also takes Glucosamine supplements daily, which she feels are helping with her arthritis Was prescribed Meloxicam and Cyclobenzaprine in the past to take as needed but she has not taken these in a while Had a total right hip arthroplasty done by Dr. Coe at [facility] in May 2023 and she appears to be presently doing very well - states that she's had no pain at all in her right hip and she has been walking and moving about with very little restrictions Follow up with orthopedics as scheduled Per request, will send in Abx for her to take for dental prophylaxis (4) Overweight (BMI 25.0-29.9): Code(s): E66.3 - Overweight Plan: Reinforced diet/exercise as tolerated/lose weight but fall precautions reinforced, especially at her age Plan Follow up in 6 months Medications: New amoxicillin Take 4 capsules 2 hours before procedure 2,000 mg (4 x 500 mg) PO ONCE 1 day 4 caps 0RF Coding Level of Care Code Est Pt Level 4 (42400) Diagnoses Mixed hyperlipidemia E78.2 Lumbar spondylosis M47.816 Primary osteoarthritis involving multiple joints M15.9 Overweight (BMI 25.0-29.9) E66.3
== END 2023-09-08 16:47 | disposition home or self-care (01) ==
PROVIDERS: PCP Internal Medicine; Visit Provider Internal Medicine
DX: E78.2 Mixed hyperlipidemia (principal); M47.816 Spondylosis without myelopathy or radiculopathy, lumbar region; M15.9 Polyosteoarthritis, unspecified; E66.3 Overweight
CPT/HCPCS: 99214

== ENCOUNTER 2023-11-21 15:49 | Outpatient (AMB) | payer OTHER, SELFPAY ==
[2023-11-21 15:51] VITALS: BP 142/90; PULSE 72; TEMP 36.8; O2SAT 98; BMI 31.4
--- NOTE | 2023-11-21 15:51 | AM.OFFWIN_ITS ---
Intake Vital Signs 11/21/23 15:51 Height 5 ft 1 in Weight 166 lb BMI 31.4 BP 142/90 H Blood Pressure Location Rt brachial Position Sitting Pulse 72 Pulse Source Pulse Oximeter Temp 98.2 F Temp Source Oral Pulse Oximetry (%) 98 Oxygen Delivery Method Room Air Intake Visit Reasons: EP ?Blood Clot on LT middle finger Intake Note: Pt is here today c/o Lt hand middle finger discolored x6 days Patient Tobacco Use Status: Never used Tobacco Allergies codeine [CODEINE] Allergy (Intermediate, Verified 11/21/23 15:51) NAUSEA/DIZZINESS, nausea HPI HPI Comments History of Present Illness Details 83-year-old female presents today compla ining of a bruising of her left 3rd finger after putting her mix her into a bottom shelf. She states she has had 1 other episode since then and has ecchymosis in the entire length of the finger it is mostly pain-free. [facility] Medical History (Updated 11/21/23 @ 16:05 by BRANDON Vora) Primary osteoarthritis of both hips Mixed hyperlipidemia Overweight (BMI 25.0-29.9) Primary osteoarthritis involving multiple joints Lumbar spondylosis Surgical History (Updated 09/08/23 @ 16:37 by Sergo Sauer MD) History of arthroplasty of right hip (~05/2023) Family History Father No problems noted. 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
== END 2023-11-21 16:14 | disposition home or self-care (01) ==
PROVIDERS: PCP Internal Medicine; Visit Provider Physician Assistant Medical
DX: M79.81 Nontraumatic hematoma of soft tissue (principal)
CPT/HCPCS: 99213

== ENCOUNTER 2023-12-21 07:15 | Outpatient (REF) | payer OTHER, SELFPAY | END 2023-12-21 07:16 | disposition home or self-care (01) | LOC: HO.MAMMO 07:15 | PROVIDERS: PCP Internal Medicine; Visit Provider Internal Medicine | DX: Z12.31 Encounter for screening mammogram for malignant neoplasm of breast (principal) | CPT/HCPCS: 77063; 77067 ==

== ENCOUNTER → 2023-12-21 07:30 | Outpatient (BNV) | payer OTHER, SELFPAY | PROVIDERS: PCP Internal Medicine; Visit Provider Radiology Diagnostic Radiology | DX: Z12.31 Encounter for screening mammogram for malignant neoplasm of breast (principal) | CPT/HCPCS: 77063; 77067 ==

== ENCOUNTER 2024-07-11 08:22 | Outpatient (AMB) | payer OTHER, SELFPAY ==
--- NOTE | 2024-07-11 08:34 | MHC.OFFWIV ---
Intake Vital Signs 07/11/24 08:35 Height 5 ft 1 in Weight 165 lb BMI 31.2 BP 122/80 Blood Pressure Location Rt brachial Position Sitting Pulse 88 Pulse Source Pulse Oximeter Temp 99.1 F Temp Source Temporal Artery Scan Pulse Oximetry (%) 95 Oxygen Delivery Method Room Air Intake Visit Reasons: EP Stomach pain, vomiting, mucus Intake Note: Patient here for left sided stomach pain, vomiting that started Monday Patient Tobacco Use Status: Never used Tobacco Allergies codeine [CODEINE] Allergy (Intermediate, Verified 07/11/24 08:36) NAUSEA/DIZZINESS, nausea Do you need a note to return to daycare/school/sports/work: No HPI EP Stomach pain, vomiting, mucus HPI Details This note is constructed using voice recognition software. While every effort has been made to ensure accuracy, senior analyst market intelligence errors may have been included. The patient is a 84 year old female who presents to the clinic today with cough, congestion, stomach pain, vomiting for the past 2 days. She reports that she feels like she is vomiting due to gagging on her thick secretions. The secretions are clear. She denies fever, chills, shortness of breath. She has no known sick contacts. She has been wearing a mask. She tried ibuprofen which did not seem to help the symptoms. Nothing seems to make it worse. [facility] Medical History (Updated 11/21/23 @ 16:05 by BRANDON Vora) Primary osteoarthritis of both hips Mixed hyperlipidemia Overweight (BMI 25.0-29.9) Primary osteoarthritis involving multiple joints Lumbar spondylosis Surgical History (Updated 09/08/23 @ 16:37 by Sergo Sauer MD) History of arthroplasty of right hip (~05/2023) Family History Father No problems noted. Mother Dementia Social History Household Members: Spouse Housing: House Alcohol intake: unknown Patient Tobacco Use Status: Never used Tobacco e-Cigarette/Vaping Use: Never Used Second Hand Smoke Exposure: Yes service: No Current occupational status: employed Cognitive needs: No Hearing needs: No Vision needs: Yes Review of Systems Const All systems reviewed & are unremarkable except as noted in HPI and below Physical Exam Vital Signs: Last Vital Signs Temp 99.1 F 07/11/24 08:35 Pulse 88 07/11/24 08:35 BP 122/80 07/11/24 08:35 Pulse Ox 95 07/11/24 08:35 Oxygen Delivery Method Room Air 07/11/24 08:35 BMI result Body Mass Index 31.2 Const General: cooperative, healthy appearing, comfortable and no acute distress Orientation/consciousness: patient oriented x3 Limitations: no limitations HEENT Head: Yes normal to inspection Ears: hearing grossly normal bilaterally, external ears normal and TM's normal bilaterally General nose exam: Normal external nose present, Normal nares present and No nasal discharge present Face and sinus: Yes normal facial exam and Yes sinuses nontender Mouth: Normal oral and palatal mucosa present and moist mucous membranes Throat: Yes tonsils normal, Yes uvula midline and Yes posterior oropharynx abnormal (Erythema) Eyes General: appearance normal, both eyes and all related structures Neck Neck: Yes normal visual inspection Resp Effort & Inspection: normal respiratory effort, able to speak in complete sentences, Actively coughing, no respiratory distress, not tachypneic, no tripod positioning and no use of accessory muscles Auscultation: clear to auscultation bilaterally Cardio Jugular venous distension: no JVD Rate: regular rate Rhythm: regular rhythm Heart sounds: S1 normal heart sound present, S2 normal heart sound present, no click, no gallops, no murmurs and no rubs GI Inspection: Yes normal to inspection Palpation (GI): nontender and no guarding Percussion: Yes normal to percussion Auscultation: normal bowel sounds Skin General skin exam: no rashes or lesions noted, elasticity normal and turgor normal Neuro General: patient oriented x3 Extrem General: Yes normal to inspection and Yes no clubbing, cyanosis or edema Assessment & Plan Assessment & Plan (1) URI (upper respiratory infection): Code(s): J06.9 - Acute upper respiratory infection, unspecified Qualifiers: URI type: unspecified URI Qualified Code(s): J06.9 - Acute upper respiratory infection, unspecified Plan: Viral swab obtained to rule out Covid, Influenza, and RSV based on symptoms. Advised mask wearing while symptomatic and quarantine per current CDC guidelines. Reviewed at home support methods including hydration, humidification, vix vapor rub, sinus rinse, and otc treatment options. Benzonatate prescription sent for symptomatic management of cough, additionally send ondansetron for nausea vomiting. Advised follow up with worsening symptoms such as dyspnea at rest, which would require emergent evaluation. Plan See above for full details and plan. Orders: Orders SARS-CoV2/FLU/RSV Today J06.9 - Acute upper respiratory infection, unspecified Medications: New ondansetron 4 mg PO Q8H 3 days PRN 9 tabs 0RF nausea and vomiting benzonatate 100 mg PO TID 5 days PRN 15 caps 0RF Cough Coding Level of Care Code Est Pt Level 3 (39267) Diagnoses Upper respiratory tract infection, unspecified type J06.9 URI type: unspecified URI
[2024-07-11 08:35] VITALS: BP 122/80; PULSE 88; TEMP 37.3; O2SAT 95; BMI 31.2
== END 2024-07-11 09:09 | disposition home or self-care (01) ==
PROVIDERS: PCP Internal Medicine; Visit Provider Registered Nurse
DX: J06.9 Acute upper respiratory infection, unspecified (principal)

== ENCOUNTER 2024-07-11 08:22 | Outpatient (REF) | payer OTHER, SELFPAY ==
[2024-07-11 10:46] LABS: Influenza A PCR NEGATIVE (Negative); Influenza B PCR NEGATIVE (Negative); Resp Syncy Virus RNA Qual PCR NEGATIVE (Negative); SARS COV2 PCR INHOUSE NEGATIVE (Negative)
== END 2024-07-11 08:23 | disposition home or self-care (01) ==
LOC: HO.LAB 08:22
PROVIDERS: PCP Internal Medicine; Visit Provider Registered Nurse
DX: J06.9 Acute upper respiratory infection, unspecified (principal)
CPT/HCPCS: 0241U

== ENCOUNTER 2024-07-13 12:00 | Inpatient (IN) | payer OTHER, SELFPAY ==
--- NOTE | ~2024-07-13 | XR_ITS ---
EXAMINATION: XR CHEST CLINICAL INFORMATION: cough COMPARISON: Chest x-ray on 10/24/2010 TECHNIQUE: 2 views of the chest were obtained. FINDINGS: The cardiac silhouette is normal. There is mild diffuse bronchial wall thickening. There are no areas of consolidation. There are no pleural effusions or pneumothoraces. The bones and soft tissues are unremarkable for the patient's age. XR/XR chest 2V IMPRESSION: Bronchial wall thickening may be infectious and/or inflammatory in etiology. Electronically signed by: Litzy Orlando MD 07/13/2024 05:09 PM [facility]
--- NOTE | ~2024-07-13 | CT_ITS ---
EXAMINATION: CT ABDOMEN AND PELVIS WITH CONTRAST CLINICAL INFORMATION: Left lower quadrant pain COMPARISON: None available. TECHNIQUE: Multidetector volumetric images were obtained from the superior aspect of the liver through the pubic symphysis following administration 85 mL of Omnipaque 350 intravenous contrast. Sagittal and coronal reformatted images were obtained on the technologist's workstation. Oral contrast: No This CT examination was performed using dose optimization techniques as appropriate, variously including the following: *Automated exposure control *Adjustment of mA and/or kV according to patient size (this includes techniques or standardized protocols for targeted exams where dose is matched to indication/reason for exam; i.e. extremities or head) *Use of iterative reconstruction technique DLP: 800 mGy-cm FINDINGS: LUNG BASES: Minimal opacity at the right base likely atelectasis LIVER, GALLBLADDER, AND BILIARY TREE: The liver is normal in size, shape, and attenuation. No focal hepatic lesion or biliary ductal dilatation is present. The gallbladder is unremarkable with no evidence of radiopaque gallstones, gallbladder wall thickening, or obvious pericholecystic inflammatory changes. PANCREAS: Unremarkable. SPLEEN: Unremarkable. ADRENAL GLANDS: Unremarkable. KIDNEYS AND URETERS: There is new dilatation of the left collecting system with hydronephrosis and proximal hydroureter. At the level of the mid to distal left ureter there is a 2 mm ureteral calculus noted. There is a small amount of fluid tracking along the left Gerota fascia. No additional urinary tract calculi kidneys otherwise unremarkable. BLADDER: Unremarkable. GASTROINTESTINAL TRACT: There is extensive diverticulosis of the descending colon and sigmoid colon similar to previous. However no definite pericolonic inflammatory changes as seen previously. Postsurgical changes in the proximal right colon. Appendix not visualized. No inflammatory changes in the right lower quadrant. Small bowel normal. Stomach normal. ABDOMINAL WALL: No significant hernia is appreciated. LYMPH NODES: Normal. VASCULAR: Mild to moderate calcific atherosclerotic disease PELVIC VISCERA: Unremarkable. OSSEOUS STRUCTURES: Right total hip arthroplasty without complication. Old compression fracture superior endplate of L1. Grade 1 degenerative anterolisthesis at L4-L5 unchanged. CT/CT abdomen pelvis w IV con IMPRESSION: 1. Obstructing left ureteral calculus. There is a new hydronephrosis and proximal hydroureter compared to prior CT 2. Diverticulosis without evidence for diverticulitis. 3. Mild to moderate calcific atherosclerotic disease. Fleischner guidelines were followed. Electronically signed by: Adolfo Domingo MD 07/13/2024 05:53 PM ANDREA RP
[2024-07-13 12:04] VITALS: BP 147/88; PULSE 83; RESP 20; TEMP 37; O2SAT 95; BMI 26.8
--- NOTE | 2024-07-13 12:07 | ED_ITS ---
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 She reports possible remote hx of diverticulitis. She comes in with c/o LLQ pain x 2 days and some loose stools but no fevers, n/v diarrhea or bloody stools. She denies travel, sick contacts, abx use. She states she also has a cough for 2 days and she notices green sputum and brown spots in it. No johanna blood. She was never a smoker but her is a smoker. No other complaints MD elicited complaint: abdominal pain Pertinent past history: none Onset (ago): day(s) (2) Pain Consistency: constant Location: LLQ Severity: moderate Quality: cramping Radiation: none Migration to: no migration Exacerbating factors: movement Relieving factors: nothing Associated symptoms: other (cough with sputum production) Related Data Home Medications ?Medication ?Instructions ?Recorded ?Confirmed ascorbic acid (vitamin C) 500 mg 500 mg PO DAILY 03/08/23 09/08/23 tablet,extended release cholecalciferol (vitamin D3) 25 25 mcg PO DAILY 03/08/23 09/08/23 mcg (1,000 unit) tablet multivitamin 1 tab PO DAILY 03/08/23 09/08/23 Previous Rx's ?Medication ?Instructions ?Recorded benzonatate 100 mg capsule 100 mg PO TID PRN Cough 5 days #15 07/11/24 caps ondansetron 4 mg disintegrating 4 mg PO Q8H PRN nausea and 07/11/24 tablet vomiting 3 days #9 tabs Allergies Allergy/AdvReac Type Severity Reaction Status Date / Time codeine [CODEINE] Allergy Intermediate NAUSEA/DIZZINESS, Verified 07/13/24 12:08 nausea Review of Systems Review of Systems Constitutional : No Weight loss, No Fever, No Chills ENT/Mouth : No sore throat, No Rhinorrhea Eyes: No Swelling, No Redness Cardiovascular : No Chest Pain, No SOB, No edema Respiratory : pos Cough, pos Sputum, No Wheezing Gastrointestinal : no Nausea, no Vomiting, no Diarrhea, positive abdominal Pain, No Hematochezia, No Melena Genitourinary : No Dysuria, No Urinary Frequency, No Hematuria, No Urgency Musculoskeletal : No joint pain, No Myalgias, No Joint Swelling Skin : No Skin Lesions, No rash Neuro : No Weakness, No Numbness, No Dizziness, No Headache Psych : No Anxiety/Panic, No Depression All other systems reviewed and are negative. [facility] Past Medical History Attestation statement: The following information was validated with the patient. Source: old records reviewed Medical History Primary osteoarthritis of both hips Mixed hyperlipidemia Overweight (BMI 25.0-29.9) Primary osteoarthritis involving multiple joints Lumbar spondylosis Surgical History History of arthroplasty of right hip (~05/2023) Family History Family History Father No problems noted. Mother Dementia Social History Social History Household Members: Spouse Housing: House Alcohol intake: never Patient Tobacco Use Status: Never used Tobacco Smoked in Last 30 Days: No e-Cigarette/Vaping Use: Never Used Second Hand Smoke Exposure: Yes Use of substances other than those prescribed or required for medical reasons: No Advance Directives: No Advance Directives Information Provided: No service: No Current occupational status: employed Cognitive needs: No Hearing needs: No Vision needs: Yes Physical Exam ED Vital Signs: Vital Signs - 24 hr 07/13/24 12:04 07/13/24 14:46 07/13/24 16:26 Temperature 98.6 F 98.3 F 98.2 F Pulse Rate 83 72 68 Respiratory Rate 20 18 14 Blood Pressure 147/88 H 176/91 H 138/78 Pulse Oximetry 95 97 94 Oxygen Delivery Method Room Air Room Air Room Air BMI result Body Mass Index 26.8 Appearance: Alert. Oriented X3. No acute distress. Eyes: Pupils equal, round and reactive to light. ENT: Pharynx normal. Neck: Normal inspection. Neck supple. CVS: Normal heart rate and rhythm. Pulses normal. Respiratory: No respiratory distress. Breath sounds normal. Abdomen: Soft and mild ttp in LLQ no rebound or guarding. Skin: Skin warm and dry. Normal skin color. Normal skin turgor. Extremities: No lower extremity edema. No calf ttp Neuro: Oriented X 3. No motor deficit. No sensory deficit. Course Course Course Narrative: This is an RME: Additional HPI, ROS, PE not included below will be deferred to primary provider. RME assessment and note performed by: Deidre Hua PA-C This is a 47-k[age]-cf[age]-female, with a hx of hyperlipidemia, who presents to the ER with complaints of abdominal pain x 5 days. Reports that she has had diarrhea. No vomiting. Also reporting alot of phlegm Reports that the pain was very severe several days ago, and relieved after taking motrin. Went to UC this morning and the wait time was too long. Abdomen is soft with TTP in the left mid quadrant, no rebound or guarding/ Plan: Labs, UA Reevaluation(s) Reevaluation #1: signed out to Dr. Chilel pending work up 4pm Reevaluation #2: UA + infection suspected lactic acid, cultures, IV ceftriaxone 425pm Reevaluation #3: DR. Chilel's progress note: Patient feels slightly better, CT of the abdomen pelvis is revealing 2 mm left ureteric stone the case was discussed with Dr. Palumbo who recommended to admit to Medicine. accepted by Dr. Xiong to the hospitalist service. Time: 18:24 Medical Decision Making Medical Decision Making [facility] Narrative: 84 yo female with no sig PMH here with 2 complaints 1. LLQ abd pain with some loose stools no rebound on exam and not toxic will obtain labs, UA, CT scan for mass/renal colic/diverticulitis. 2. Cough with green brown sputum she denies CP/SOB travel at this time she has no symptoms to suggest ACS or VTE but she does live with a smoker CXR ordered for pathology Differential Diagnosis Differential Diagnoses: The differential diagnosis associated with the presentation includes diverticulitis, pneumonia, mass - she does not c/o shortness of breath or chest pain doubt VTE Admission/Observation Consideration of admission/observation: Escalation of care including admission/observation considered Lab Data [facility] Lab Attestation statement: I reviewed the patient's lab results. 07/13/24 12:32 07/13/24 12:32 Labs: Lab Results 07/13/24 07/13/24 07/13/24 Range/Units 12:32 16:02 16:57 WBC 8.8 (4.8-10.8) X10*3/uL RBC 4.17 L (4.20-5.50) X10*6/uL Hgb 11.7 L (12.0-16.0) g/dl Hct 35.1 L (37.0-47.0) % MCV 84.2 (80.0-98.0) fL MCH 28.1 (27.0-33.0) pg MCHC 33.3 (31.0-35.0) g/dl RDW 13.3 (11.0-16.0) % Plt Count 249 (160-400) X10*3/uL MPV 9.6 (9.4-12.3) fL Immature Gran % (Auto) 0.3 (0.0-0.4) % Neut % (Auto) 79.0 H (45-73) % Lymph % (Auto) 9.2 L (20-40) % [place] % (Auto) 9.0 (2-11) % Eos % (Auto) 2.0 (0-4) % Baso % (Auto) 0.5 (0-2) % Lymph # (Auto) 0.8 L (1.2-4.9) X10*3/uL [place] # (Auto) 0.8 (0.1-1.2) X10*3/uL Eos # (Auto) 0.2 (0.0-0.4) X10*3/uL Baso # (Auto) 0.0 (0.0-0.2) X10*3/uL Abs Immat Gran (auto) 0.03 (0.00-0.03) X10*3/uL Absolute Neuts (auto) 7.0 (2.0-8.3) x10*3/uL Absolute Nucleated RBC 0.000 (0.0-0.012) X10*3/uL Nucleated RBC % (auto) 0.0 (0.0-0.2) /100WBC Sodium 138 (135-145) mmol/L Potassium 3.7 (3.3-5.1) mmol/L Chloride 104 (96-108) mmol/L Carbon Dioxide 24 (22-29) mmol/L Anion Gap 14 (12-20) BUN 16 (9-16) mg/dL Creatinine 1.02 (0.5-1.4) mg/dL Estim Creat Clear Calc 42.5 Estimated GFR 52 Random Glucose 113 (60-115) mg/dL Lactic Acid 0.7 (0.5-2.0) mmol/L Calcium 9.6 (8.4-10.2) mg/dL Magnesium 1.9 (1.6-2.6) mg/dL Total Bilirubin 0.6 (0.0-1.0) mg/dL Direct Bilirubin 0.2 (0.0-0.5) mg/dL AST 41 H (5-31) U/L ALT 30 (0-31) U/L Alkaline Phosphatase 172 H (39-117) U/L Troponin I High Sens 4.4 (<3.5-17.0) ng/L Total Protein 7.5 (6.5-8.0) g/dL Albumin 3.6 (3.5-5.0) g/dL Lipase 29 (8-78) U/L Urine Color Yellow Urine Appearance Clear Urine pH 5.5 (5.0-9.0) Ur Specific [place] 1.020 (1.005-1.025) Urine Protein Trace (Neg-Trace) mg/dL Urine Glucose (UA) Negative (Negative) mg/dL Urine Ketones Trace (Negative) mg/dL Urine Blood Moderate (2+) H (Negative) Urine Nitrite Positive H (Negative) Ur Leukocyte Esterase Moderate (2+) H (Negative) Urine RBC 3-5 H (0-2) /HPF Urine WBC 21-50 (0-5) /HPF Ur Squamous Epith Cells 0-2 (0-2) /HPF Urine Bacteria 4+ (None Seen) Hyaline Casts 0-2 (0-2) /LPF Independent Interpretation I performed an independent interpretation of an: EKG, Plain X-Ray and CT Scan Interpretation: Rate: 74 Rhythm: NSR [place]: left Normal P waves. Normal CHARITO. Normal QRS complex. ST T wave : inverted t waves V1 and III, no [place] qTC:404 prior studies: no acute ischemia The study has been interpreted contemporaneously by me. . Medications Administered Discontinued Medications Generic Name Dose Route Start Last Admin Trade Name Freq PRN Reason Stop Dose Admin Ceftriaxone Sodium 1 gm 07/13/24 16:23 07/13/24 17:04 Ceftriaxone Sodium 1 Gm Vial IVPUSH 07/13/24 16:24 1 gm ONCE ONE Administration Acetaminophen 1,000 mg in 100 mls @ 400 mls/hr 07/13/24 14:49 07/13/24 15:40 Ofirmev IV 07/13/24 15:03 Infused ONCE ONE Infusion Iohexol 100 ml 07/13/24 15:06 07/13/24 15:07 Iohexol 350 Mg/Ml 100 Ml Infus..Btl IV 07/13/24 15:07 85 ml ONCE ONE Administration Discharge Plan Discharge Clinical Impression: Acute cough, Acute UTI, Calculus of left ureter Abdominal pain Qualifiers: Abdominal location: left lower quadrant Qualified Code(s): R10.32 - Left lower quadrant pain Patient Disposition: Admitted As Inpatient Print Language: Upper Sorbian
--- NOTE | 2024-07-13 12:14 | ECG_ITS ---
Test Reason : sob Blood Pressure : / mmHG Vent. Rate : 074 BPM Atrial Rate : 074 BPM P-R Int : 142 ms QRS Dur : 086 ms QT Int : 364 ms P-R-T Axes : 044 -14 006 degrees QTc Int : 404 ms Normal sinus rhythm Inferior infarct (cited on or before 13-JUL-2024) Cannot rule out Anterior infarct , age undetermined Abnormal ECG When compared with ECG of 18-MAR-2016 15:40, No significant change was found Referred By: Deidre Hua Electronically Signed By:YE CORBIN MD
[2024-07-13 12:37] LABS: MANUAL DIFF FLAG NO
[2024-07-13 12:39] LABS: Basophils Percent Auto 0.5 % (0-2); Eosinophils Absolute Auto 0.2 X10*3/uL (0.0-0.4); Hematocrit 35.1 % (37.0-47.0); Hemoglobin 11.7 g/dl (12.0-16.0); Imm Gran Abs Auto 0.03 X10*3/uL (0.00-0.03); Imm Gran Pct Auto 0.3 % (0.0-0.4); Lymphocytes Absolute Auto 0.8 X10*3/uL (1.2-4.9); Lymphocytes Percent Auto 9.2 % (20-40); Mean Corpuscular HGB Conc 33.3 g/dl (31.0-35.0); Mean Corpuscular Hemoglobin 28.1 pg (27.0-33.0); Mean Corpuscular Volume 84.2 fL (80.0-98.0); Mean Platelet Volume 9.6 fL (9.4-12.3); Monocytes Absolute Auto 0.8 X10*3/uL (0.1-1.2); Platelet Count 249 X10*3/uL (160-400); Red Blood Count 4.17 X10*6/uL (4.20-5.50); Red Cell Distribution Width 13.3 % (11.0-16.0); White Blood Count 8.8 X10*3/uL (4.8-10.8)
[2024-07-13 13:02] LABS: Alanine Aminotransferase 30 U/L (0-31); Albumin Level 3.6 g/dL (3.5-5.0); Alkaline Phosphatase 172 U/L (39-117); Anion Gap 14 (12-20); Aspartate Amino Transferase 41 U/L (5-31); Bilirubin Direct 0.2 mg/dL (0.0-0.5); Bilirubin Total 0.6 mg/dL (0.0-1.0); Blood Urea Nitrogen 16 mg/dL (9-16); Calcium 9.6 mg/dL (8.4-10.2); Carbon Dioxide 24 mmol/L (22-29); Chloride 104 mmol/L (96-108); Creatinine Clr Calc Pharmacy 42.5; Estimated Glomerular Filt Rate 52; Glucose Random 113 mg/dL (60-115); Lipase 29 U/L (8-78); Magnesium 1.9 mg/dL (1.6-2.6); Potassium 3.7 mmol/L (3.3-5.1); Sodium 138 mmol/L (135-145); Total Protein 7.5 g/dL (6.5-8.0)
[2024-07-13 13:09] LABS: Troponin-I High Sensitivity 4.4 ng/L (<3.5-17.0)
[2024-07-13 14:46] VITALS: BP 176/91; PULSE 72; RESP 18; TEMP 36.8; O2SAT 97
[2024-07-13] MEDS: iohexoL 350 MG/ML 100 ML INFUS..BTL IV (15:07)
[2024-07-13] MEDS: Acetaminophen 1,000 MG/100 ML PIGGYBACK 400 MG IV (15:15)
[2024-07-13 16:18] LABS: Appearance Urine Clear; Color Urine Yellow; Glucose Urine UA Negative (Negative); Leukocyte Esterase Urine Moderate (2+) (Negative); Nitrite Urine Positive (Negative); PH 5.5 (5.0-9.0); UMIC TRIGGER UACC YES; Urine Blood Moderate (2+) (Negative); Urine Ketones Trace mg/dL (Negative); Urine Protein Trace mg/dL (Neg-Trace)
[2024-07-13 16:26] VITALS: BP 138/78; PULSE 68; RESP 14; TEMP 36.8; O2SAT 94
--- NOTE | 2024-07-13 16:53 | PC.NURSE ---
Patient came from home and admitted via triage for left abdomen pain x multiple days and thick phlegm. Alert and oriented, patient c/o of 5/10 pain, 20g IV started right AC, IV Tylenol given as ordered with good effect. X-Ray and CT results pending.
--- NOTE | 2024-07-13 17:01 | PC.NURSE ---
OOB ambulating to bathroom independently, gait steady.
[2024-07-13 17:02] LABS: Bacteria Urine 4+ (None Seen); Hyaline Casts Urine 0-2 /LPF (0-2); Squamous Epithelial Cell Urine 0-2 /HPF (0-2); UACC Culture Trigger YES; WBC Urine 21-50 /HPF (0-5)
[2024-07-13] MEDS: cefTRIAXone sodium 1 GM VIAL IVPUSH (17:04)
[2024-07-13 17:17] LABS: Lactic Acid 0.7 mmol/L (0.5-2.0)
[2024-07-13 18:52] VITALS: BP 148/71; PULSE 70; RESP 18; O2SAT 95
--- NOTE | 2024-07-13 19:07 | PM.IMHP ---
History of Present Illness Date of Service: 07/13/24 Attending physician on admission: Kallie Goodman Chief Complaint: Abd pain, diarrhea Pt is an 84-year-old female with a PMH significant for?osteoarthritis and diverticulitis only on home vitamins who presents to the ED with?LLQ abdominal pain x4 days. Pt reports symptoms began on Monday and would wax and wane, though overall worsened. Has experienced some loose stools, but no nausea or vomiting. Patient also has been experiencing 4 days of increased phlegm and cough, as well as reduced appetite. Patient presented to urgent care for her symptoms and was only given cough medicine. Presents today due to persistent and worsening symptoms. Denies fever, chills. No chest pain/or palpitations. Denies shortness or or difficulty breathing. No polyuria or dysuria. In the ED pt was hypertensive up to 176/91, vitals otherwise stable and WNL. Labs were significant for AST 41, alk-phos 172, and a positive UA. No leukocytosis. Stable H&H. No significant electrolyte abnormalities. Renal function WNL but mildly increased creatinine of 1.02. Tested negative for flu, COVID, RSV. CXR showed bronchial wall thickening that may be infectious and/or inflammatory. CT of abdomen and pelvis found obstructing left ureteral calculus and new hydronephrosis and proximal hydroureter. EKG demonstrated normal sinus rhythm without evidence of significant ST elevations or depressions. Pt was treated with IVF, acetaminophen, and ceftriaxone. Pt will be admitted to the hospital for treatment and further evaluation of acute UTI in the setting of obstructing left ureteral calculus with hydronephrosis and hydroureter. Review of Systems Review of Systems: Negative except for that which is stated in the HPI. [facility] Medical History Primary osteoarthritis of both hips Mixed hyperlipidemia Overweight (BMI 25.0-29.9) Primary osteoarthritis involving multiple joints Lumbar spondylosis Family History Father No problems noted. Mother Dementia Surgical History History of arthroplasty of right hip (~05/2023) Social History Household Members: Spouse Housing: House Alcohol intake: never Patient Tobacco Use Status: Never used Tobacco Smoked in Last 30 Days: No e-Cigarette/Vaping Use: Never Used Second Hand Smoke Exposure: Yes Use of substances other than those prescribed or required for medical reasons: No Advance Directives: No Advance Directives Information Provided: No service: No Current occupational status: employed Cognitive needs: No Hearing needs: No Vision needs: Yes Meds Allergies Allergy/AdvReac Type Severity Reaction Status Date / Time codeine [CODEINE] Allergy Intermediate NAUSEA/DIZZINESS, Verified 07/13/24 12:08 nausea Active Medications: Current Medications Acetaminophen (Acetaminophen 325 Mg Tablet) 975 mg PO Q6H PRN PRN Reason: Pain, Mild (Pain Scale 1-3), fever or headache Ceftriaxone Sodium (Ceftriaxone Sodium 1 Gm Vial) 1 gm IVPUSH Q24H [facility] Lactated Ringer's (Lr) 1,000 mls @ 100 mls/hr IVCONT .Q10H TRISTAN Stop: 07/14/24 04:59 Morphine Sulfate (Morphine Sulfate 2 Mg/Ml Cartridge) 2 mg IVPUSH Q4H PRN; Protocol PRN Reason: Pain, Severe (Pain Scale 7-10) Ondansetron HCl (Ondansetron Hcl 4 Mg/2 Ml Vial) 4 mg IVPUSH Q8H PRN PRN Reason: Nausea and Vomiting Sodium Chloride (0.9 % Sodium Chloride Flush 3 Ml Syringe) 3 ml IVFLUSH QSHIFT [facility] Home Medications ?Medication ?Instructions ?Recorded ?Confirmed ?Last Taken ?Type ascorbic acid (vitamin C) 500 mg 500 mg PO DAILY 03/08/23 09/08/23 Unknown History tablet,extended release cholecalciferol (vitamin D3) 25 25 mcg PO DAILY 03/08/23 09/08/23 Unknown History mcg (1,000 unit) tablet multivitamin 1 tab PO DAILY 03/08/23 09/08/23 Unknown History Physical Exam Vital Signs and Narrative: Vital Signs: Last Vital Signs Temp 98.2 F 07/13/24 16:26 Pulse 70 07/13/24 18:52 Resp 18 07/13/24 18:52 BP 148/71 H 07/13/24 18:52 Pulse Ox 95 07/13/24 18:52 O2 Del Method Room Air 07/13/24 18:52 BMI result Body Mass Index 26.8 Constitutional: Alert, in no acute distress. Mental Status: Oriented to person, place and time. Eyes: Pupils are equal, round, and reactive to light. Ear, Nose, and Throat: Oropharynx clear, mucous membranes moist. Ears and nose without deformities. Trachea midline. Respiratory: Clear to auscultation bilaterally. No wheezing, rales, or rhonchi. Cardiovascular: S1, S2 regular. No murmurs, rubs, or gallops. Gastrointestinal: Abdomen soft, non-distended, with left-sided tenderness. Normal bowel sounds. Neurologic: Cranial nerves II-XII are grossly intact bilaterally. No focal neurological deficits. Moves all extremities spontaneously. Skin: Warm, dry. Extremities: No edema. Psychiatric: Normal mood and affect. Results Labs 07/13/24 12:32 07/13/24 12:32 Labs: Laboratory Results - last 24 hr 07/13/24 07/13/24 07/13/24 12:32 16:02 16:57 MCV 84.2 MCH 28.1 MCHC 33.3 RDW 13.3 Plt Count 249 MPV 9.6 Immature Gran % (Auto) 0.3 Neut % (Auto) 79.0 H Lymph % (Auto) 9.2 L [place] % (Auto) 9.0 Eos % (Auto) 2.0 Baso % (Auto) 0.5 Lymph # (Auto) 0.8 L [place] # (Auto) 0.8 Eos # (Auto) 0.2 Baso # (Auto) 0.0 Abs Immat Gran (auto) 0.03 Absolute Neuts (auto) 7.0 Absolute Nucleated RBC 0.000 Nucleated RBC % (auto) 0.0 Anion Gap 14 Estim Creat Clear Calc 42.5 Estimated GFR 52 Random Glucose 113 Lactic Acid 0.7 Calcium 9.6 Magnesium 1.9 Total Bilirubin 0.6 Direct Bilirubin 0.2 AST 41 H ALT 30 Alkaline Phosphatase 172 H Troponin I High Sens 4.4 Total Protein 7.5 Albumin 3.6 Lipase 29 Urine Color Yellow Urine Appearance Clear Urine pH 5.5 Ur Specific [place] 1.020 Urine Protein Trace Urine Glucose (UA) Negative Urine Ketones Trace Urine Blood Moderate (2+) H Urine Nitrite Positive H Ur Leukocyte Esterase Moderate (2+) H Urine RBC 3-5 H Urine WBC 21-50 Ur Squamous Epith Cells 0-2 Urine Bacteria 4+ Hyaline Casts 0-2 Imaging Radiologist's Impressions: Impressions Chest X-Ray 07/13/24 14:49 IMPRESSION: Bronchial wall thickening may be infectious and/or inflammatory in etiology. Electronically signed by: Litzy Orlando MD 07/13/2024 05:09 PM EST RP Abdomen/Pelvis CT 07/13/24 14:58 IMPRESSION: 1. Obstructing left ureteral calculus. There is a new hydronephrosis and proximal hydroureter compared to prior CT 2. Diverticulosis without evidence for diverticulitis. 3. Mild to moderate calcific atherosclerotic disease. Fleischner guidelines were followed. Electronically signed by: Adolfo Domingo MD 07/13/2024 05:53 PM EST RP Assessment and Plan (1) Calculus of left ureter: Status: Acute (2) Acute UTI: Status: Acute Plan Pt is an 84-year-old female with a PMH significant for?osteoarthritis and diverticulitis only on home vitamins who presents to the ED with?LLQ abdominal pain x4 days. Pt will be admitted to the hospital for treatment and further evaluation of acute UTI in the setting of obstructing left ureteral calculus with hydronephrosis and hydroureter. UTI in the setting of obstructing left ureteral calculus UA positive, CT showing hydronephrosis and hydroureter No sepsis: No fever, tachycardia, tachypnea, or leukocytosis; lactic acid WNL Patient given IVF and started on broad-spectrum antibiotics in the ED Will place maintenance fluids Will treat with ceftriaxone, started 07/13/2024 Analgesics for pain management Urology consult NPO past midnight for likely stenting Follow urine cultures Abnormal x-ray CXR shows mild bronchial wall thickening without consolidation that may be infectious and/inflammatory in etiology Pt with cough x4 days; denies SOB/DISLA Will check for COVID, flu, and RSV Guaifenesin Full Code Attending:?Dr. Tripathi DVT Prophylaxis: Pneumatic compression due to likely impending procedure tomorrow Pt will require a hospitalization of at least two nights for treatment of?acute UTI in the setting of obstructing left ureteral calculus with hydronephrosis and hydroureter. Patient will require administration of IV antibiotics, IVF, analgesics, and specialist consultation with Urology for likely surgical procedure. Quality Stroke Does the patient have a stroke diagnosis?: No VTE Prior VTE?: No VTE Risk Level:: Medical - moderate - high VTE Device Contraindication: N/A - Device Ordered VTE Drug Contraindication: Treatment Not Indicated
[2024-07-13] MEDS: Lactated Ringers 1,000 ML 100 ML IVCONT (19:10)
[2024-07-13 19:41] VITALS: BP 162/77; PULSE 73; RESP 18; TEMP 36.9; O2SAT 94
--- NOTE | 2024-07-13 19:47 | MHC.EDTECH ---
This pct assumed care of Patient at 1900 ,vitals taken,Patient snacking on saltines crackers and watching television .
[2024-07-13 20:47] LABS: Influenza A PCR NEGATIVE (Negative); Influenza B PCR NEGATIVE (Negative); Resp Syncy Virus RNA Qual PCR NEGATIVE (Negative); SARS COV2 PCR INHOUSE NEGATIVE (Negative)
[2024-07-14] VITALS (7 sets, daily range): BP systolic 132–176; BP diastolic 76–84; PULSE 64–74; RESP 16–20; TEMP 36.2–37.4; O2SAT 92–97; BMI 28.7
[2024-07-14] MEDS: Morphine Sulfate 2 MG/ML CARTRIDGE IVPUSH (03:06)
[2024-07-14] MEDS: guaiFENesin DM 200/20/10 ML 10 ML SYRUP PO ×3 (03:06→21:53)
[2024-07-14 06:58] LABS: MANUAL DIFF FLAG NO
[2024-07-14 06:59] LABS: Basophils Percent Auto 0.5 % (0-2); Eosinophils Absolute Auto 0.1 X10*3/uL (0.0-0.4); Eosinophils Percent Auto 1.5 % (0-4); Hematocrit 36.9 % (37.0-47.0); Hemoglobin 12.2 g/dl (12.0-16.0); Imm Gran Abs Auto 0.04 X10*3/uL (0.00-0.03); Imm Gran Pct Auto 0.5 % (0.0-0.4); Lymphocytes Absolute Auto 0.8 X10*3/uL (1.2-4.9); Lymphocytes Percent Auto 10.8 % (20-40); Mean Corpuscular HGB Conc 33.1 g/dl (31.0-35.0); Mean Corpuscular Hemoglobin 28.1 pg (27.0-33.0); Mean Platelet Volume 9.4 fL (9.4-12.3); Monocytes Absolute Auto 0.7 X10*3/uL (0.1-1.2); Monocytes Percent Auto 8.6 % (2-11); Neutrophils Absolute Auto 6.1 x10*3/uL (2.0-8.3); Neutrophils Percent Auto 78.1 % (45-73); Platelet Count 282 X10*3/uL (160-400); Red Blood Count 4.34 X10*6/uL (4.20-5.50); Red Cell Distribution Width 13.3 % (11.0-16.0); White Blood Count 7.8 X10*3/uL (4.8-10.8)
[2024-07-14 07:13] LABS: Anion Gap 14 (12-20); Blood Urea Nitrogen 11 mg/dL (9-16); Calcium 9.6 mg/dL (8.4-10.2); Carbon Dioxide 23 mmol/L (22-29); Chloride 106 mmol/L (96-108); Creatinine Clr Calc Pharmacy 52.3; Estimated Glomerular Filt Rate > 60; Glucose Random 132 mg/dL (60-115); Potassium 3.9 mmol/L (3.3-5.1); Sodium 139 mmol/L (135-145)
[2024-07-14] MEDS: Ketorolac Tromethamine 15 MG/ML VIAL IVPUSH (07:14)
[2024-07-14] MEDS: Acetaminophen 1,000 MG/100 ML PIGGYBACK 400 MG IV (07:19)
[2024-07-14] MEDS: Lactated Ringers 1,000 ML 80 ML IVCONT (07:19)
[2024-07-14] MEDS: 0.9 % Sodium Chloride Flush 3 ML SYRINGE IVFLUSH ×2 (07:19→16:44)
--- NOTE | 2024-07-14 10:23 | PHA.MEDREC ---
Addendum entered by Castro Morrison [facility] 07/14/24 11:12: MED REC CHECK BY [facility] Original Note: Pharmacy Consult ? Medication Reconciliation Pharmacy has completed the medication reconciliation.
--- NOTE | 2024-07-14 12:41 | HO.PM.IMPN ---
Subjective Subjective Date of Service: 07/14/24 Interval History: seen and examined this morning follow up for UTI, obstructing renal stone pain overnight but better this am. no nausea or vomiting Review of Systems Review of Systems: Yes all other systems are reviewed and are negative Constitutional Constitutional: Denies chills and Denies fever(s) Cardiovascular Cardiovascular: Denies chest pain, Denies palpitations and Denies dyspnea Respiratory Respiratory: Denies cough and Denies dyspnea Endocrine Endocrine: Denies palpitations Physical Exam Vital Signs: Vital Signs: Last Vital Signs Temp 97.2 F 07/14/24 10:14 Pulse 64 07/14/24 10:14 Resp 20 07/14/24 10:14 BP 171/77 H 07/14/24 10:14 Pulse Ox 94 07/14/24 10:14 O2 Del Method Room Air 07/14/24 10:14 BMI result Body Mass Index 28.7 Const: General: cooperative, comfortable, alert and awake Nutritional Appearance: average body habitus Orientation/consciousness: patient oriented x3 Resp: Effort & Inspection: normal respiratory effort, able to speak in complete sentences, no respiratory distress and no use of accessory muscles Cardio: Rate: regular rate GI: Inspection: No distended Palpation (GI): Soft to palpation and nontender : General: Yes no CVA tenderness Back/Spine/Pelvis: Back: no CVA tenderness Neuro: General: patient oriented x3, moves all extremities and CN's II-XI intact bilaterally Extrem: General: Yes no pedal edema Objective Data Active Medications Acetaminophen (Acetaminophen 325 Mg Tablet) 975 mg PO Q6H PRN PRN Reason: Pain, Mild (Pain Scale 1-3), fever or headache Ceftriaxone Sodium (Ceftriaxone Sodium 2 Gm Vial) 2 gm IVPUSH Q24H [facility] Guaifenesin/Dextromethorphan (Guaifenesin Dm 200/20/10 Ml 10 Ml Syrup) 10 ml PO Q4H PRN PRN Reason: Cough Last Admin: 07/14/24 03:06 Dose: 10 ml Documented By: DANITZA Hydromorphone HCl (Hydromorphone Hcl 0.5 Mg/0.5 Ml Syringe) 0.5 mg IVPUSH Q4H PRN; Protocol PRN Reason: Pain, Severe (Pain Scale 7-10) Lactated Ringer's (Lr) 1,000 mls @ 80 mls/hr IVCONT .[id number] [facility] Stop: 07/14/24 19:14 Last Admin: 07/14/24 07:19 Dose: 80 mls/hr Documented By: CHERELLE Ondansetron HCl (Ondansetron Hcl 4 Mg/2 Ml Vial) 4 mg IVPUSH Q8H PRN PRN Reason: Nausea and Vomiting Sodium Chloride (0.9 % Sodium Chloride Flush 3 Ml Syringe) 3 ml IVFLUSH QSHIFT [facility] Last Admin: 07/14/24 07:19 Dose: 3 ml Documented By: CHERELLE Labs 07/14/24 06:53 07/14/24 06:53 Labs: Laboratory Results - last 24 hr 07/13/24 07/13/24 07/13/24 12:32 16:02 16:57 MCV MCH MCHC RDW Plt Count MPV Immature Gran % (Auto) Neut % (Auto) Lymph % (Auto) Talbot % (Auto) Eos % (Auto) Baso % (Auto) Lymph # (Auto) Talbot # (Auto) Eos # (Auto) Baso # (Auto) Abs Immat Gran (auto) Absolute Neuts (auto) Absolute Nucleated RBC Nucleated RBC % (auto) Anion Gap 14 Estim Creat Clear Calc 42.5 Estimated GFR 52 Random Glucose 113 Lactic Acid 0.7 Calcium 9.6 Magnesium 1.9 Total Bilirubin 0.6 Direct Bilirubin 0.2 AST 41 H ALT 30 Alkaline Phosphatase 172 H Troponin I High Sens 4.4 Total Protein 7.5 Albumin 3.6 Lipase 29 Urine Color Yellow Urine Appearance Clear Urine pH 5.5 Ur Specific Baudette 1.020 Urine Protein Trace Urine Glucose (UA) Negative Urine Ketones Trace Urine Blood Moderate (2+) H Urine Nitrite Positive H Ur Leukocyte Esterase Moderate (2+) H Urine RBC 3-5 H Urine WBC 21-50 Ur Squamous Epith Cells 0-2 Urine Bacteria 4+ Hyaline Casts 0-2 Influenza Type A (PCR) NEGATIVE Influenza Type B (PCR) NEGATIVE RSV RNA Qual (PCR) NEGATIVE SARS-CoV-2 RNA (RT-PCR) NEGATIVE 07/14/24 06:53 MCV 85.0 MCH 28.1 MCHC 33.1 RDW 13.3 Plt Count 282 MPV 9.4 Immature Gran % (Auto) 0.5 H Neut % (Auto) 78.1 H Lymph % (Auto) 10.8 L Talbot % (Auto) 8.6 Eos % (Auto) 1.5 Baso % (Auto) 0.5 Lymph # (Auto) 0.8 L Talbot # (Auto) 0.7 Eos # (Auto) 0.1 Baso # (Auto) 0.0 Abs Immat Gran (auto) 0.04 H Absolute Neuts (auto) 6.1 Absolute Nucleated RBC 0.000 Nucleated RBC % (auto) 0.0 Anion Gap 14 Estim Creat Clear Calc 52.3 Estimated GFR > 60 Random Glucose 132 H Lactic Acid Calcium 9.6 Magnesium Total Bilirubin Direct Bilirubin AST ALT Alkaline Phosphatase Troponin I High Sens Total Protein Albumin Lipase Urine Color Urine Appearance Urine pH Ur Specific Baudette Urine Protein Urine Glucose (UA) Urine Ketones Urine Blood Urine Nitrite Ur Leukocyte Esterase Urine RBC Urine WBC Ur Squamous Epith Cells Urine Bacteria Hyaline Casts Influenza Type A (PCR) Influenza Type B (PCR) RSV RNA Qual (PCR) SARS-CoV-2 RNA (RT-PCR) Microbiology Microbiology Results: Microbiology 07/13/24 Unknown Urine Culture - Preliminary Urine clean catch - Clean Catch Midstream Gram negative aaliyah 07/13/24 16:57 Blood Culture - Preliminary Blood - Venous Prelim: GNR Gram Stain only 07/13/24 16:57 Blood Culture - Preliminary Blood - Venous Prelim: GNR Gram Stain only Assessment and Plan (1) Calculus of left ureter: Status: Acute (2) Acute UTI: Status: Acute Plan This is an 84-year-old female with a PMH significant for?osteoarthritis and diverticulitis only on home vitamins who presents to the ED with?LLQ abdominal pain x4 days found to have UTI in the setting of obstructing left ureteral calculus with hydronephrosis and hydroureter. UTI in the setting of obstructing left ureteral calculus with GNR bacteremia CT showing hydronephrosis and hydroureter No sepsis continue ceftriaxone, started 07/13/2024 Urology consult - not likely to need intervention as stone is 2mm and likely to pass on its own urine culture and blood cultures growing GNR - will need 14 days of abx upon discharge - follow final culture results (previous UCx ecoli sensitive to ceftriaxone) Abnormal x-ray due to URI CXR shows mild bronchial wall thickening without consolidation denies respiratory symptoms at this time. no hypoxia COVID, flu, and RSV negative symptomatic support as needed Full Code DVT Prophylaxis: lovenox Requires ongoing inpatient stay for treatment of?acute UTI in the setting of obstructing left ureteral calculus with hydronephrosis and hydroureter for administration of IV antibiotics, IVF, analgesics, and specialist consultation with Urology Quality Stroke Does the patient have a stroke diagnosis?: No VTE Prior VTE?: No VTE Risk Level:: Medical - moderate - high VTE Device Contraindication: N/A - Device Ordered VTE Drug Contraindication: Treatment Not Indicated
[2024-07-14] MEDS: Enoxaparin Sodium 40 MG/0.4 ML SYRINGE SUBCUT (14:41)
--- NOTE | 2024-07-14 15:41 | MHC.CM.PN ---
PT REPORTS SHE LIVES WITH HER AND IS INDEPENDENT WITH CARE SHE HAS NO DME AND NO SERVICES SHE DECLINES TO COMPLETE A HCP PCP: HEIDI LOWE IMM DELIVERED DCP: HOME NO SERVICES VIA PRIVATE TRANSPORT
[2024-07-14] MEDS: cefTRIAXone sodium 2 GM VIAL IVPUSH (16:36)
[2024-07-15 03:07] VITALS: BP 136/70; PULSE 73; RESP 16; TEMP 37; O2SAT 92
[2024-07-15 07:18] VITALS: BP 150/76; PULSE 66; RESP 16; TEMP 36.6; O2SAT 93
--- NOTE | 2024-07-15 10:53 | HO.PM.IMPN ---
Subjective Subjective Date of Service: 07/15/24 Interval History: Complaining of headache and phlegm in throat Has been urinating denies flank pain, no CVA tenderness, no fevers, no chills not aware if she passed stone but pain has resolved, no acute events overnight. Review of Systems All other system reviewed and are negative. Physical Exam Vital Signs: Vital Signs: Last Vital Signs Temp 97.9 F 07/15/24 07:18 Pulse 66 07/15/24 07:18 Resp 16 07/15/24 07:18 BP 150/76 H 07/15/24 07:18 Pulse Ox 93 07/15/24 07:18 O2 Del Method Room Air 07/15/24 07:18 BMI result Body Mass Index 28.7 Const: Other: General resting comfortably in no acute distress. Neck no JVD. CVS regular rate rhythm, Respiratory lungs clear to auscultation, no respiratory distress, no wheeze, no rhonchi. Gastrointestinal abdomen soft, non tender, bowel sounds audible. No flank discomfort. No CVA tenderness Extremities no edema. Neuro non focal Skin no rash Objective Data Active Medications Acetaminophen (Acetaminophen 325 Mg Tablet) 975 mg PO Q6H PRN PRN Reason: Pain, Mild (Pain Scale 1-3), fever or headache Ceftriaxone Sodium (Ceftriaxone Sodium 2 Gm Vial) 2 gm IVPUSH Q24H [facility] Last Admin: 07/14/24 16:36 Dose: 2 gm Documented By: MEMO Enoxaparin Sodium (Enoxaparin Sodium 40 Mg/0.4 Ml Syringe) 40 mg SUBCUT Q24H [facility] Last Admin: 07/14/24 14:41 Dose: 40 mg Documented By: MEMO Guaifenesin/Dextromethorphan (Guaifenesin Dm 200/20/10 Ml 10 Ml Syrup) 10 ml PO Q4H PRN PRN Reason: Cough Last Admin: 07/14/24 21:53 Dose: 10 ml Documented By: BENJAMÍN Hydromorphone HCl (Hydromorphone Hcl 0.5 Mg/0.5 Ml Syringe) 0.5 mg IVPUSH Q4H PRN; Protocol PRN Reason: Pain, Severe (Pain Scale 7-10) Ondansetron HCl (Ondansetron Hcl 4 Mg/2 Ml Vial) 4 mg IVPUSH Q8H PRN PRN Reason: Nausea and Vomiting Sodium Chloride (0.9 % Sodium Chloride Flush 3 Ml Syringe) 3 ml IVFLUSH QSHIFT [facility] Last Admin: 07/14/24 22:14 Dose: Not Given Documented By: BENJAMÍN Non-Admin Reason: IV Running Labs 07/14/24 06:53 07/14/24 06:53 Microbiology Microbiology Results: Microbiology 07/13/24 16:57 Blood Culture - Preliminary Blood - Venous Gram negative aaliyah 07/13/24 16:57 Blood Culture - Preliminary Blood - Venous Gram negative aaliyah 07/13/24 Unknown Urine Culture - Final Urine clean catch - Clean Catch Midstream Escherichia coli Assessment and Plan (1) Calculus of left ureter: Status: Acute Plan 84-year-old female with a PMH significant for?osteoarthritis and diverticulitis only on home vitamins who presents to the ED with?LLQ abdominal pain x4 days found to have UTI in the setting of obstructing left ureteral calculus with hydronephrosis and hydroureter. UTI in the setting of obstructing left ureteral calculus with GNR bacteremia CT showing hydronephrosis and hydroureter, likely passed a stone since no flank pain No sepsis continue ceftriaxone, started 07/13/2024 Urology consult - spoke with Dr. Palumbo since pain is resolved likely passed the stone urine culture and blood cultures growing GNR - will need 14 days of abx upon discharge - urine culture grew E coli pansensitive, Encourage out of bed to chair and ambulation. Abnormal x-ray due to URI CXR shows mild bronchial wall thickening without consolidation Complaining of cough/phlegm unable to bring up, no hypoxia COVID, flu, and RSV negative Add cough medication encourage by mouth fluids/add IS Full Code DVT Prophylaxis: lovenox Requires ongoing inpatient stay for treatment of?acute UTI in the setting of obstructing left ureteral calculus with hydronephrosis and hydroureter for administration of IV antibiotics, IVF, analgesics, and specialist consultation with Urology Quality Stroke Does the patient have a stroke diagnosis?: No VTE Prior VTE?: No VTE Risk Level:: Medical - moderate - high VTE Device Contraindication: N/A - Device Ordered VTE Drug Contraindication: Treatment Not Indicated
[2024-07-15 11:21] VITALS: BP 146/72; PULSE 69; RESP 16; TEMP 36.2; O2SAT 95
[2024-07-15] MEDS: guaiFENesin DM 200/20/10 ML 10 ML SYRUP PO ×2 (12:56→20:41)
[2024-07-15] MEDS: Acetaminophen 325 MG TABLET 975 MG PO (12:57)
[2024-07-15] MEDS: Enoxaparin Sodium 40 MG/0.4 ML SYRINGE SUBCUT (13:02)
[2024-07-15] MEDS: 0.9 % Sodium Chloride Flush 3 ML SYRINGE IVFLUSH ×3 (13:08→20:44)
[2024-07-15 15:10] VITALS: BP 163/83; PULSE 67; RESP 17; TEMP 36.6; O2SAT 93
[2024-07-15] MEDS: cefTRIAXone sodium 2 GM VIAL IVPUSH (18:06)
[2024-07-15 19:47] VITALS: BP 153/77; PULSE 71; RESP 18; TEMP 36.7; O2SAT 94
[2024-07-15 23:28] VITALS: BP 155/85; PULSE 81; RESP 16; TEMP 37.2; O2SAT 95
[2024-07-16 03:24] VITALS: BP 153/81; PULSE 76; RESP 16; TEMP 37.1; O2SAT 93
[2024-07-16 07:25] VITALS: BP 147/75; PULSE 68; RESP 16; TEMP 36.9; O2SAT 92
[2024-07-16] MEDS: guaiFENesin DM 200/20/10 ML 10 ML SYRUP PO (07:41)
[2024-07-16] MEDS: 0.9 % Sodium Chloride Flush 3 ML SYRINGE IVFLUSH (07:49)
--- NOTE | 2024-07-16 10:34 | P.DS_ITS ---
DS: Providers Provider Date of Service: 07/16/24 Date of admission: 07/13/24 18:57 Date of discharge: 07/16/24 Primary care physician: Sergo Sauer MD DS: Diagnosis Discharge Diagnosis (1) Calculus of left ureter: Status: Acute DS: Summary Hospital Course Hospital Course: Date of Service: 07/13/24 Attending physician on admission: Kallie Goodman Chief Complaint: Abd pain, diarrhea Pt is an 84-year-old female with a PMH significant for?osteoarthritis and diverticulitis only on home vitamins who presents to the ED with?LLQ abdominal pain x4 days. Pt reports symptoms began on Monday and would wax and wane, though overall worsened. Has experienced some loose stools, but no nausea or vomiting. Patient also has been experiencing 4 days of increased phlegm and cough, as well as reduced appetite. Patient presented to urgent care for her symptoms and was only given cough medicine. Presents today due to persistent and worsening symptoms. Denies fever, chills. No chest pain/or palpitations. Denies shortness or or difficulty breathing. No polyuria or dysuria. In the ED pt was hypertensive up to 176/91, vitals otherwise stable and WNL. Labs were significant for AST 41, alk-phos 172, and a positive UA. No le ukocytosis. Stable H&H. No significant electrolyte abnormalities. Renal function WNL but mildly increased creatinine of 1.02. Tested negative for flu, COVID, RSV. CXR showed bronchial wall thickening that may be infectious and/or inflammatory. CT of abdomen and pelvis found obstructing left ureteral calculus and new hydronephrosis and proximal hydroureter. EKG demonstrated normal sinus rhythm without evidence of significant ST elevations or depressions. Pt was treated with IVF, acetaminophen, and ceftriaxone. Pt will be admitted to the hospital for treatment and further evaluation of acute UTI in the setting of obstructing left ureteral calculus with hydronephrosis and hydroureter. hospital course : 84-year-old female with a PMH significant for?osteoarthritis and diverticulitis only on home vitamins who presents to the ED with?LLQ abdominal pain x4 days found to have UTI in the setting of obstructing left ureteral calculus with hydronephrosis and hydroureter. UTI in the setting of obstructing left ureteral calculus ,CT showed hydronephrosis and hydroureter, ,No sepsis, patient treated with IV ceftriaxone blood cultures and urine culture grew E coli, , case discussed with Urology since pain resolved likely patient passed the stone, since patient is hemodynamically stable she is being discharged home on by mouth Ceftin 500 mg b.i.d. recommend to drink plenty of fluids and returned to check if noted to have recurrent symptoms of pain or fever. Patient also complain of congested cough, chest x-ray showed mild bronchial wall thickening without consolidation, COVID, flu, and RSV negative , patient treated with cough medication with significant improvement in symptoms. Patient also noted to have elevated blood pressures recommend outpatient follow- up with primary care physician. Time Attestation Discharge Coordination Time (in mins): 38 Quality: Safe Use of Opioids Does Pt have an Active Cancer Diagnosis on the Problem List?: No Quality: Stroke Does the patient have a stroke diagnosis?: No Physical Exam Vital Signs: Vital Signs: Last Vital Signs Temp 98.5 F 07/16/24 07:25 Pulse 68 07/16/24 07:25 Resp 16 07/16/24 07:25 BP 147/75 H 07/16/24 07:25 Pulse Ox 92 07/16/24 07:25 O2 Del Method Room Air 07/16/24 07:25 BMI result Body Mass Index 28.7 Const: Other: General resting comfortably in no acute distress. Neck no JVD. CVS regular rate rhythm, Respiratory lungs clear to auscultation, no respiratory distress, no wheeze, no rhonchi. Gastrointestinal abdomen soft, non tender, bowel sounds audible. No flank discomfort. No CVA tenderness Extremities no edema. Neuro non focal Skin no rash Discharge Plan Discharge Anticipated Discharge Date/Time: 07/16/24 09:41 Patient Disposition: Home, Self-Care Discharge Diagnosis: E COLI BACTEREMIA UTI Referrals: Sergo Sauer MD [Primary Care Provider] - 1 Week Discharge Medications: New dextromethorphan-guaifenesin 10-100 mg/5 mL Syrup 10 ml PO TID Qty: 237 0RF cefuroxime axetil 500 mg tablet 500 mg PO Q12H 7 Days Qty: 14 0RF Continued multivitamin Tablet 1 tab PO DAILY ascorbic acid (vitamin C) 500 mg Tablet Extended Release 500 mg PO DAILY cholecalciferol (vitamin D3) 25 mcg (1,000 unit) Tablet 25 mcg PO DAILY Discharge Orders: Discharge Order (Routine); Ordered 07/16/24 Ordered By: Colby Adams Diet: Advance to usual diet Activity on Discharge: As tolerated Stand Alone Forms: Patient Portal Discharge page Print Language: Congolese Care Plan Goals: Take Ceftin 500 mg 1 tablet twice daily for 7 days Drink fluids Noted to have elevated blood pressure follow up with primary care physician Health Concerns: Continue all home medications as before Plan of Treatment: Outpatient follow-up with primary care physician call for appointment Assessment: as above Patient Instructions: Cefuroxime (By mouth), Urinary Tract Infection in Women (DC) Discharge Date/Time: 07/16/24 11:34
--- NOTE | 2024-07-16 10:43 | MHC.CM.PN ---
DP: PT HAS BEEN MEDICALLY CLEARED FOR DC HOME, NO SERVICES. PT HAS OWN RIDE HOME.
== END 2024-07-16 11:34 | disposition home or self-care (01) | DRG 690 ==
LOC: HO.ED 18:48 → HO.EDOVER 19:07 → HO.S3 07-14 07:55
PROVIDERS: Emergency Medicine; Physician Assistant Medical; Admitting Provider Internal Medicine; Emergency Provider Emergency Medicine; PCP Internal Medicine; Visit Provider Hospitalist
DX: N13.6 Pyonephrosis (principal); R78.81 Bacteremia; R91.8 Other nonspecific abnormal finding of lung field; E78.2 Mixed hyperlipidemia; B96.20 Unspecified Escherichia coli [E. coli] as the cause of diseases classified elsewhere; Z20.822 Contact with and (suspected) exposure to COVID-19; Z79.899 Other long term (current) drug therapy
CPT/HCPCS: 0241U; 36415; 71046; 74177; 80048; 80076; 81001; 83605; 83690; 83735; 84484; 85025; 87040; 87077; 87086; 87088; 87186; 87205; 93005; 99285; J0131; J0696; J1650; J1885; J2270; J7120; Q9967

== ENCOUNTER → 2024-07-13 12:14 | Outpatient (BNV) | payer OTHER, SELFPAY | PROVIDERS: Admitting Provider Internal Medicine; Emergency Provider Emergency Medicine; PCP Internal Medicine; Visit Provider Internal Medicine Cardiovascular Disease | DX: R94.31 Abnormal electrocardiogram [ECG] [EKG] (principal) | CPT/HCPCS: 93010 ==

== ENCOUNTER → 2024-07-13 18:57 | Outpatient (BNV) | payer OTHER, SELFPAY | PROVIDERS: Admitting Provider Internal Medicine; Emergency Provider Emergency Medicine; PCP Internal Medicine; Visit Provider Student in an Organized Health Care Education/Training Program | DX: N20.1 Calculus of ureter (principal) | CPT/HCPCS: 99223; 99232; 99239 ==

== ENCOUNTER 2024-07-21 09:12 | Inpatient (IN) | payer OTHER, MEDICARE, SELFPAY ==
--- NOTE | ~2024-07-21 | CT_ITS ---
EXAMINATION: CT SOFT TISSUE NECK WITH CONTRAST CLINICAL INFORMATION: Dysphagia, odynophagia, fevers. COMPARISON: No prior available. TECHNIQUE: Following the intravenous administration of 100 mL of Omnipaque 350 intravenous contrast, helical imaging of the neck was performed in the axial plane with generation of coronal and sagittal reformatted images. This CT examination was performed using dose optimization techniques as appropriate, variously including the following: *Automated exposure control *Adjustment of mA and/or kV according to patient size (this includes techniques or standardized protocols for targeted exams where dose is matched to indication/reason for exam; i.e. extremities or head) *Use of iterative reconstruction technique DLP: 328 mGy-cm FINDINGS: Lymph Nodes: -Normal. No abnormal lymphadenopathy. Carotid Sheath Structures: -Normal. Salivary Glands: -Fatty change of the parotid glands without focal lesion. Mild fatty change of the submandibular glands. Normal sublingual glands. Mucosal Space: - Normal. No mucosal lesions. Visceral Space: -Thyroid gland: There are 2 dominant nodules present, in the left posterior gland measuring 1.1 x 1.1 cm, and in the right mid gland measuring 1.1 x 1.0 cm. These have cystic appearance. No follow-up recommended in this age as per white paper guidelines. -Remainder of the visceral space is normal. Retropharangeal Space: - Normal. Parapharyngeal Fat Planes: -Normal and undisturbed. Strategic Partnership Manager Spaces: -Normal. Imaged Intracranial Contents: -No mass effect, edema, or abnormal enhancement. Cortical and dural venous sinuses are patent. The skull base is normal. Globes and Orbits: -There have been bilateral lens replacements. -Otherwise normal in appearance. Paranasal Sinuses/Mastoids/Tympanic Spaces: -Normally aerated bilaterally. Lung Apices and Superior Mediastinal Structures: -Imaged lung apices demonstrate diffuse mosaic attenuation, and numerous nodular-like consolidative foci in both lungs, for example, in the left upper lobe anteriorly, there is a 1.0 cm irregular nodular opacity. (Series 4, image 119). The superior segment left lower lobe, there is a 6 mm oval nodule (series 4, image 120). In the right upper lobe laterally, there is a 9 mm ill-defined nodular opacity (series 4, image 120). Differential includes pneumonia and metastatic disease. Bony Structures: -No suspicious bone lesions. No fractures. -Degenerative changes at the atlantoaxial joint, and throughout the cervical spine most significant at C5-6 and C6-7. -Degenerative changes also present in the upper thoracic spine. -Arthritis in the bilateral sternoclavicular joints. -Normal TM joints. CT/CT soft tissue neck w IV con IMPRESSION: 1. No acute findings in the neck. No abnormal inflammation, fluid collection, mass, or lymphadenopathy. 2. There are small thyroid nodules bilaterally, measuring up to 1.1 cm, for which no follow-up is recommended as per white paper guidelines. 3. There are numerous nodular ill-defined opacities in the upper lungs, with associated mosaic attenuation, findings which could represent infectious, inflammatory, or neoplastic entities. Electronically signed by: Efren Mckeon MD 07/23/2024 11:19 AM [facility]
--- NOTE | ~2024-07-21 | XR_ITS ---
EXAMINATION: XR CHEST CLINICAL INFORMATION: cough COMPARISON: 07/13/2024 TECHNIQUE: 2 views of the chest were obtained. FINDINGS: Subpleural fibrosis and small patchy airspace opacities in the right and left midlung does not appear significantly changed. No definite effusion. Stable cardiac mediastinal silhouette. XR/XR chest 2V IMPRESSION: Subpleural fibrosis and small patchy airspace opacities in the right and left midlung does not appear significantly changed. Electronically signed by: Lokesh Ward MD 07/21/2024 11:41 AM [facility]
--- NOTE | ~2024-07-21 | CT_ITS ---
EXAMINATION: CT ABDOMEN AND PELVIS WITHOUT CONTRAST CLINICAL INFORMATION: LEFT FLANK PAIN ? STONE COMPARISON: CT abdomen/pelvis dated 07/13/2024 and 03/08/2023 TECHNIQUE: Multidetector volumetric imaging was performed from the superior aspect of the liver through the pubic symphysis. Sagittal and coronal reformatted images were obtained on the technologist's workstation. This CT examination was performed using dose optimization techniques as appropriate, variously including the following: *Automated exposure control *Adjustment of mA and/or kV according to patient size (this includes techniques or standardized protocols for targeted exams where dose is matched to indication/reason for exam; i.e. extremities or head) *Use of iterative reconstruction technique DLP: 468 mGy-cm FINDINGS: LUNG BASES: Bibasilar atelectasis. Multiple new pulmonary nodules in the right lower lobe and right middle lobe, some of which have increased in size, and others are stable when compared to CT obtained 8 days prior but are new when compared to CT abdomen/pelvis dated 03/08/2023. For example, a right lower lobe nodule measuring 0.9 x 0.7 cm, previously measured 0.6 x 0.4 cm (2:5) and a right lower lobe nodule measuring 1.1 x 0.8 cm previously measured 1.0 x 0.8 cm (2:4). LIVER, GALLBLADDER, AND BILIARY TREE: Hepatomegaly measures 20.9 cm in craniocaudal dimension. The liver is diffusely low in attenuation in keeping with hepatic steatosis. No focal hepatic lesion or biliary ductal dilatation is present. Radiopaque gallstones without gallbladder wall thickening, pericholecystic fluid, or surrounding inflammation to suggest acute cholecystitis. PANCREAS: Fatty atrophy of the pancreas. No focal lesion. No pancreatic ductal dilatation. SPLEEN: Unremarkable. ADRENAL GLANDS: Unremarkable. KIDNEYS AND URETERS: The previously visualized obstructing 2 mm calculus in the mid to distal left ureter is no longer visualized. However, there is decreased but persistent mild hydronephrosis of the left kidney, mild perinephric stranding, and mild stranding along the left ureter. Additional punctate nonobstructing renal calculi in the lower pole of the bilateral kidneys. No right hydronephrosis. BLADDER: Unremarkable. GASTROINTESTINAL TRACT: Extensive diverticulosis in the descending and sigmoid colon without secondary signs of acute diverticulitis. However, there is diffuse circumferential wall thickening in the sigmoid colon that may suggest sequela of chronic diverticulitis. The small bowel is unremarkable. The appendix is surgically absent. ABDOMINAL WALL: No significant hernia is appreciated. LYMPH NODES: Normal. VASCULAR: Atherosclerosis of the aorta and its branches. No abdominal aortic aneurysm. PELVIC VISCERA: Unremarkable. OSSEOUS STRUCTURES: Bone demineralization. Degenerative changes of the lumbar spine. Wedging of the superior endplate of L1 with at least 25% height loss is stable when compared to 03/08/2023. Status post right hip are the plasty. CT/CT abdomen pelvis wo IV con IMPRESSION: 1. The previously visualized obstructing 2 mm calculus in the mid to distal left ureter is no longer visualized. However, there is persistent but decreased mild hydronephrosis of the left kidney, mild left perinephric stranding, and mild stranding along the left ureter. Findings may represent sequelae of recently passed stone versus infection. Recommend clinical correlation with urinalysis. 2. Additional punctate nonobstructing renal calculi in the lower pole of the bilateral kidneys. 3. Extensive diverticulosis in the descending and sigmoid colon without secondary signs of acute diverticulitis. However, there is diffuse circumferential wall thickening in the sigmoid colon that may represent chronic diverticulitis. 4. Multiple new pulmonary nodules in the right lower lobe and right middle lobe, some of which have increased in size and others are stable when compared to CT obtained 8 days prior, but are new when compared to CT abdomen/pelvis dated 03/08/2023. Findings are concerning for infectious versus inflammatory nodules. Recommend chest CT in 8-12 weeks to assess for resolution. 5. Cholelithiasis without evidence of acute cholecystitis. 6. Hepatomegaly and hepatic steatosis. Fleischner guidelines were followed. Electronically signed by: Nehal Muñoz MD 07/21/2024 12:29 PM [facility]
[2024-07-21 09:17] VITALS: BP 116/84; PULSE 89; RESP 19; TEMP 36.6; O2SAT 98; BMI 28.3
--- NOTE | 2024-07-21 09:28 | ED_ITS ---
HPI - General Adult General Chief complaint: Abdominal Pain Stated complaint: abd pain Time Seen by Provider: 07/21/24 09:28 Source: patient Mode of arrival: ambulatory Limitations: no limitations History of Present Illness ED Provider: Minnie Ball PA-C HPI narrative: Patient is an 84 year old assigned female at with a history of recent admission for a UTI with obstructing renal stone presenting to the emergency department today with left lower abdominal pain, cough, and gagging. Patient states that she is continuing to have left lower abdominal pain, while better than it was when she was admitted, it's still present. Patient states that she is waking up gagging on mucous and is having an upset stomach ever since starting the antibiotic she went home on. Patient denies any dizziness, lightheadedness, nausea, vomiting, fever, chills, blurry vision, double vision, loss of vision, chest pain, difficulty breathing, shortness of breath, back pain, night sweats, pain with urination, increased urinary frequency, increased urinary urgency, blood in her urine or stool, syncope or a near syncopal episode, recent trauma or falls, bowel incontinence, bladder incontinence, or any other complaints at this time. Onset (ago): day(s) Relieving factors: none Exacerbating factors: none Associated symptoms: denies other symptoms Treatments prior to arrival: none Related Data Home Medications ?Medication ?Instructions ?Recorded ?Confirmed ascorbic acid (vitamin C) 500 mg 500 mg PO DAILY 03/08/23 07/21/24 tablet,extended release cholecalciferol (vitamin D3) 25 25 mcg PO DAILY 03/08/23 07/21/24 mcg (1,000 unit) tablet multivitamin 1 tab PO DAILY 03/08/23 07/21/24 Previous Rx's ?Medication ?Instructions ?Recorded cefuroxime axetil 500 mg tablet 500 mg PO Q12H 7 days #14 tabs 07/16/24 dextromethorphan-guaifenesin 10 10 ml PO TID #237 mL 07/16/24 mg-100 mg/5 mL oral syrup Allergies Allergy/AdvReac Type Severity Reaction Status Date / Time codeine [CODEINE] Allergy Intermediate NAUSEA/DIZZINESS, Verified 07/21/24 09:18 nausea Review of Systems 2 Constitutional: Constitutional: Reports no additional constitutional complaints, Denies chills, Denies fever(s) and Denies night sweats Eyes: Eyes: Reports no additional eye complaints, Denies blurry vision, Denies change in vision, Denies diplopia, Denies eye discharge, Denies loss of vision and Denies eye pain ENT: Denies dizziness Cardiovascular: Cardiovascular: Reports no additional cardiovascular complaints, Denies chest pain, Denies lightheadedness, Denies Loss of Consciousness and Denies dyspnea Respiratory: Respiratory: Reports no additional respiratory complaints, Reports cough and Denies dyspnea Gastrointestinal: Gastrointestinal: Reports no additional gastrointestinal complaints, Reports abdominal pain (left lower), Denies melena, Denies hematochezia, Denies change in bowel habits and Denies change in stool character Comments: gagging on mucous upset stomach Genitourinary: Genitourinary: Denies hematuria, Denies urinary frequency, Denies dysuria, Denies urinary incontinence, Denies urinary hesitancy and Denies urinary urgency Musculoskeletal: Musculoskeletal: Reports no additional musculoskeletal complaints, Denies numbness and Denies tingling Neurologic: Denies dizziness, Denies loss of vision, Denies numbness and Denies tingling Psychiatric: Psychiatric: Reports no additional psychiatric complaints Endocrine: Endocrine: Reports no additional endocrine complaints Hematologic/Lymphatic: Hematologic/Lymphatic: Reports no additional hematologic/lymphatic complaints Allergic/Immunologic: Allergic/Immunologic: Reports no additional allergic/immunologic complaints [facility] Past Medical History Attestation statement: The following information was validated with the patient. Source: old records reviewed and nursing notes reviewed Medical History Primary osteoarthritis of both hips Mixed hyperlipidemia Overweight (BMI 25.0-29.9) Primary osteoarthritis involving multiple joints Lumbar spondylosis Surgical History History of arthroplasty of right hip (~05/2023) Family History Family History Father No problems noted. Mother Dementia Social History Social History Household Members: Spouse Housing: Condominium Do you presently have visiting nurse or other home services: No Alcohol intake: never Patient Tobacco Use Status: Never used Tobacco e-Cigarette/Vaping Use: Never Used Second Hand Smoke Exposure: No Advance Directives: No Advance Directives Information Provided: No Do you have a plan to hurt others: No Plan service: No Current occupational status: employed Cognitive needs: No Hearing needs: No Vision needs: Yes Physical Exam ED Vital Signs: Vital Signs - 24 hr 07/21/24 09:17 07/21/24 10:06 07/21/24 13:00 Temperature 98 F 98.1 F 98.2 F Pulse Rate 89 75 77 Respiratory Rate 19 16 15 Blood Pressure 116/84 142/70 H 144/76 H Pulse Oximetry 98 95 94 Oxygen Delivery Method Room Air Room Air Room Air 07/21/24 13:05 Temperature Pulse Rate Respiratory Rate 14 Blood Pressure Pulse Oximetry Oxygen Delivery Method BMI result Body Mass Index 28.3 Const General: cooperative, no acute distress, alert and awake Nutritional Appearance: well nourished Orientation/consciousness: patient oriented x3 Limitations: no limitations HENMT Head: Yes normal to inspection and Yes atraumatic Ears: hearing grossly normal bilaterally and external ears normal General nose exam: Normal external nose present, no nasal discharge noted and no epistaxis Face and sinus: Yes normal facial exam, No abrasion and No laceration Mouth: Normal oral and palatal mucosa present, no drooling and no muffled voice Eyes General: appearance normal, both eyes and all related structures Periorbital: periorbital findings normal Eyelids: Yes eyelids normal Conjunctivae: conjunctivae normal Pupils: Equal, round and reactive pupils present EOM: EOMs intact bilaterally Neck Neck: Yes normal visual inspection, Yes full ROM and Yes no lymphadenopathy Chest Chest palpation & inspection: normal inspection of the chest Resp Effort & Inspection: normal respiratory effort and able to speak in complete sentences GI Inspection: Yes normal to inspection Neuro General: patient oriented x3 and moves all extremities Cranial nerves: Yes Equal, round and reactive pupils present Cognition (Neuro): normal cognition Extrem General: Yes normal to inspection, Yes full ROM and Yes capillary refill normal Psych Appearance: grossly normal Mental Status: mental status grossly normal Affect: normal affect Attitude: cooperative Thought process: Normal thought process present Thought content: Normal thought content present Insight: Good insight present (Psych) Medications Administered Generic Name Dose Route Start Last Admin Trade Name Freq PRN Reason Stop Dose Admin Heparin Sodium (Porcine) 5,000 unit 07/21/24 13:30 07/21/24 13:35 Heparin Sodium,Porcine 5,000 Unit/Ml Vial SUBCUT 5,000 unit Q12H TRISTAN Administration Discontinued Medications Generic Name Dose Route Start Last Admin Trade Name Ralph PRN Reason Stop Dose Admin Ampicillin Sodium/Sulbactam 100 mls @ 200 mls/hr 07/21/24 12:41 07/21/24 13:21 Sodium 1.5 gm/ Sodium Chloride IV 07/21/24 13:10 200 mls/hr ONCE ONE Administration Morphine Sulfate 4 mg 07/21/24 12:41 07/21/24 13:05 Morphine Sulfate 4 Mg/Ml Cartridge IVPUSH 07/21/24 12:42 4 mg ONCE ONE Administration Protocol Ondansetron HCl 4 mg 07/21/24 12:41 07/21/24 13:20 Ondansetron Hcl 4 Mg/2 Ml Vial IVPUSH 07/21/24 12:42 4 mg ONCE ONE Administration Pantoprazole Sodium 40 mg 07/21/24 09:34 07/21/24 10:12 Pantoprazole Sodium 40 Mg/10 Ml Vial IVPUSH 07/21/24 09:35 40 mg ONCE ONE Administration Medical Decision Making Medical Decision Making MDM Narrative: Patient is an 84 year old assigned female at with a history of recent admission for a UTI with obstructing renal stone presenting to the emergency department today with left lower abdominal pain, cough, and gagging. Patient's physical exam was as noted in the physical exam portion of this note. Patient's blood work showed an elevated WBC count but otherwise unremarkable. Patient's urine showed no acute process. Patient's CT abd/pelvis showed worsening pulmonary nodules in the right lower and middle lobe which had increased in size compared to the CT scan just 8 days ago as well as significant circumferential wall thickening in the sigmoid colon secondary to diverticulitis. Patient's chest x-ray showed small patchy airspace opacities in the right and left mid lungs. Patient was given IV unasyn and pain medication. I spoke to the hospitalist team who agreed to admission. I explained my physical exam findings as well as all test results to the patient. I answered all questions asked by the patient. Patient verbalized agreement and understanding with this treatment plan and admission. Differential Diagnosis Differential Diagnoses: The differential diagnosis associated with the presentation includes Diverticulitis PNA Cough Gagging Admission/Observation Consideration of admission/observation: Escalation of care including admission/observation considered Patient admitted. Consult Healthcare Provider Management of the patient was discussed with: Hospitalist (agreed to admission as noted in the MDM Rationale portion of this note.) Lab Data [facility] Lab Attestation statement: I reviewed the patient's lab results. My interpretation of these results are in the MDM Rationale portion of this note. 07/21/24 10:00 07/21/24 10:00 Labs: Lab Results 07/21/24 07/21/24 07/21/24 Range/Units 09:57 09:58 10:00 WBC 12.9 H (4.8-10.8) X10*3/uL RBC 4.25 (4.20-5.50) X10*6/uL Hgb 11.7 L (12.0-16.0) g/dl Hct 36.4 L (37.0-47.0) % MCV 85.6 (80.0-98.0) fL MCH 27.5 (27.0-33.0) pg MCHC 32.1 (31.0-35.0) g/dl RDW 13.4 (11.0-16.0) % Plt Count 329 (160-400) X10*3/uL MPV 9.2 L (9.4-12.3) fL Immature Gran % (Auto) 0.5 H (0.0-0.4) % Neut % (Auto) 87.2 H (45-73) % Lymph % (Auto) 4.8 L (20-40) % [place] % (Auto) 6.9 (2-11) % Eos % (Auto) 0.3 (0-4) % Baso % (Auto) 0.3 (0-2) % Lymph # (Auto) 0.6 L (1.2-4.9) X10*3/uL [place] # (Auto) 0.9 (0.1-1.2) X10*3/uL Eos # (Auto) 0.0 (0.0-0.4) X10*3/uL Baso # (Auto) 0.0 (0.0-0.2) X10*3/uL Abs Immat Gran (auto) 0.07 H (0.00-0.03) X10*3/uL Absolute Neuts (auto) 11.2 H (2.0-8.3) x10*3/uL Absolute Nucleated RBC 0.000 (0.0-0.012) X10*3/uL Nucleated RBC % (auto) 0.0 (0.0-0.2) /100WBC Sodium 135 (135-145) mmol/L Potassium 3.5 (3.3-5.1) mmol/L Chloride 101 (96-108) mmol/L Carbon Dioxide 24 (22-29) mmol/L Anion Gap 14 (12-20) BUN 14 (9-16) mg/dL Creatinine 0.79 (0.5-1.4) mg/dL Estim Creat Clear Calc 52.4 Estimated GFR > 60 Random Glucose 123 H (60-115) mg/dL Calcium 9.1 (8.4-10.2) mg/dL Magnesium 1.9 (1.6-2.6) mg/dL Total Bilirubin 0.7 (0.0-1.0) mg/dL AST 22 (5-31) U/L ALT 14 (0-31) U/L Alkaline Phosphatase 125 H (39-117) U/L Total Protein 7.5 (6.5-8.0) g/dL Albumin 3.5 (3.5-5.0) g/dL Urine Color Yellow Urine Appearance Cloudy Urine pH 5.5 (5.0-9.0) Ur Specific [place] 1.015 (1.005-1.025) Urine Protein 100 (2+) H (Neg-Trace) mg/dL Urine Glucose (UA) Negative (Negative) mg/dL Urine Ketones Trace (Negative) mg/dL Urine Blood Large (3+) H (Negative) Urine Nitrite Negative (Negative) Ur Leukocyte Esterase Trace H (Negative) Urine RBC >20 H (0-2) /HPF Urine WBC 0-5 (0-5) /HPF Ur Squamous Epith Cells 3-5 (0-2) /HPF Urine Bacteria None Seen (None Seen) Hyaline Casts 0-2 (0-2) /LPF Influenza Type A (PCR) NEGATIVE (Negative) Influenza Type B (PCR) NEGATIVE (Negative) RSV RNA Qual (PCR) NEGATIVE (Negative) SARS-CoV-2 RNA (RT-PCR) NEGATIVE (Negative) S. pyogenes GrpA SHIRLEY Negative (Negative) Independent Interpretation I performed an independent interpretation of an: Plain X-Ray and CT Scan Interpretation: My interpretation is in agreement with the radiologist's impression of these imaging studies. L EXAMINATION: CT ABDOMEN AND PELVIS WITHOUT CONTRAST CLINICAL INFORMATION: LEFT FLANK PAIN ? STONE COMPARISON: CT abdomen/pelvis dated 07/13/2024 and 03/08/2023 TECHNIQUE: Multidetector volumetric imaging was performed from the superior aspect of the liver through the pubic symphysis. Sagittal and coronal reformatted images were obtained on the technologist's workstation. This CT examination was performed using dose optimization techniques as appropriate, variously including the following: *Automated exposure control *Adjustment of mA and/or kV according to patient size (this includes techniques or standardized protocols for targeted exams where dose is matched to indication/reason for exam; i.e. extremities or head) *Use of iterative reconstruction technique DLP: 468 mGy-cm FINDINGS: LUNG BASES: Bibasilar atelectasis. Multiple new pulmonary nodules in the right lower lobe and right middle lobe, some of which have increased in size, and others are stable when compared to CT obtained 8 days prior but are new when compared to CT abdomen/pelvis dated 03/08/2023. For example, a right lower lobe nodule measuring 0.9 x 0.7 cm, previously measured 0.6 x 0.4 cm (2:5) and a right lower lobe nodule measuring 1.1 x 0.8 cm previously measured 1.0 x 0.8 cm (2:4). LIVER, GALLBLADDER, AND BILIARY TREE: Hepatomegaly measures 20.9 cm in craniocaudal dimension. The liver is diffusely low in attenuation in keeping with hepatic steatosis. No focal hepatic lesion or biliary ductal dilatation is present. Radiopaque gallstones without gallbladder wall thickening, pericholecystic fluid, or surrounding inflammation to suggest acute cholecystitis. PANCREAS: Fatty atrophy of the pancreas. No focal lesion. No pancreatic ductal dilatation. SPLEEN: Unremarkable. ADRENAL GLANDS: Unremarkable. KIDNEYS AND URETERS: The previously visualized obstructing 2 mm calculus in the mid to distal left ureter is no longer visualized. However, there is decreased but persistent mild hydronephrosis of the left kidney, mild perinephric stranding, and mild stranding along the left ureter. Additional punctate nonobstructing renal calculi in the lower pole of the bilateral kidneys. No right hydronephrosis. BLADDER: Unremarkable. GASTROINTESTINAL TRACT: Extensive diverticulosis in the descending and sigmoid colon without secondary signs of acute diverticulitis. However, there is diffuse circumferential wall thickening in the sigmoid colon that may suggest sequela of chronic diverticulitis. The small bowel is unremarkable. The appendix is surgically absent. ABDOMINAL WALL: No significant hernia is appreciated. LYMPH NODES: Normal. VASCULAR: Atherosclerosis of the aorta and its branches. No abdominal aortic aneurysm. PELVIC VISCERA: Unremarkable. OSSEOUS STRUCTURES: Bone demineralization. Degenerative changes of the lumbar spine. Wedging of the superior endplate of L1 with at least 25% height loss is stable when compared to 03/08/2023. Status post right hip are the plasty. CT/CT abdomen pelvis wo IV con IMPRESSION: 1. The previously visualized obstructing 2 mm calculus in the mid to distal left ureter is no longer visualized. However, there is persistent but decreased mild hydronephrosis of the left kidney, mild left perinephric stranding, and mild stranding along the left ureter. Findings may represent sequelae of recently passed stone versus infection. Recommend clinical correlation with urinalysis. 2. Additional punctate nonobstructing renal calculi in the lower pole of the bilateral kidneys. 3. Extensive diverticulosis in the descending and sigmoid colon without secondary signs of acute diverticulitis. However, there is diffuse circumferential wall thickening in the sigmoid colon that may represent chronic diverticulitis. 4. Multiple new pulmonary nodules in the right lower lobe and right middle lobe, some of which have increased in size and others are stable when compared to CT obtained 8 days prior, but are new when compared to CT abdomen/pelvis dated 03/08/2023. Findings are concerning for infectious versus inflammatory nodules. Recommend chest CT in 8-12 weeks to assess for resolution. 5. Cholelithiasis without evidence of acute cholecystitis. 6. Hepatomegaly and hepatic steatosis. Fleischner guidelines were followed. Electronically signed by: Nehal Muñoz MD 07/21/2024 12:29 PM [facility] Dictated By: Sylvia Muñoz Signed By: Electronically signed by Sylvia Muñoz 07/21/24 1229 EXAMINATION: XR CHEST CLINICAL INFORMATION: cough COMPARISON: 07/13/2024 TECHNIQUE: 2 views of the chest were obtained. FINDINGS: Subpleural fibrosis and small patchy airspace opacities in the right and left midlung does not appear significantly changed. No definite effusion. Stable cardiac mediastinal silhouette. XR/XR chest 2V IMPRESSION: Subpleural fibrosis and small patchy airspace opacities in the right and left midlung does not appear significantly changed. Electronically signed by: Lokesh Ward MD 07/21/2024 11:41 AM EST Dictated By: Lokesh Ward MD Signed By: Electronically signed by Lokesh Ward MD 07/21/24 1141 Radiology Impression Discussion of test interpretation with radiology: I have reviewed the radiologist's reading. Critical Care Time Critical Care Time Critical Care Time: Yes Total Critical Care Time: 44 Attestation: I spent 44 minutes of Critical Care Time with this patient. This does not include time spent on separately reported billable procedures. Discharge Plan Discharge Clinical Impression: Abdominal pain, Diverticulitis, Pneumonia Patient Disposition: Admitted As Inpatient
[2024-07-21 10:06] VITALS: BP 142/70; PULSE 75; RESP 16; TEMP 36.7; O2SAT 95
[2024-07-21 10:06] LABS: MANUAL DIFF FLAG NO
[2024-07-21 10:09] LABS: Basophils Percent Auto 0.3 % (0-2); Eosinophils Percent Auto 0.3 % (0-4); Hematocrit 36.4 % (37.0-47.0); Hemoglobin 11.7 g/dl (12.0-16.0); Imm Gran Abs Auto 0.07 X10*3/uL (0.00-0.03); Imm Gran Pct Auto 0.5 % (0.0-0.4); Lymphocytes Absolute Auto 0.6 X10*3/uL (1.2-4.9); Lymphocytes Percent Auto 4.8 % (20-40); Mean Corpuscular HGB Conc 32.1 g/dl (31.0-35.0); Mean Corpuscular Hemoglobin 27.5 pg (27.0-33.0); Mean Corpuscular Volume 85.6 fL (80.0-98.0); Mean Platelet Volume 9.2 fL (9.4-12.3); Monocytes Absolute Auto 0.9 X10*3/uL (0.1-1.2); Monocytes Percent Auto 6.9 % (2-11); Neutrophils Absolute Auto 11.2 x10*3/uL (2.0-8.3); Neutrophils Percent Auto 87.2 % (45-73); Platelet Count 329 X10*3/uL (160-400); Red Blood Count 4.25 X10*6/uL (4.20-5.50); Red Cell Distribution Width 13.4 % (11.0-16.0); White Blood Count 12.9 X10*3/uL (4.8-10.8)
[2024-07-21 10:11] LABS: Appearance Urine Cloudy; Color Urine Yellow; Glucose Urine UA Negative (Negative); Leukocyte Esterase Urine Trace (Negative); Nitrite Urine Negative (Negative); PH 5.5 (5.0-9.0); Specific Gravity - Urine 1.015 (1.005-1.025); UMIC TRIGGER UACC YES; Urine Blood Large (3+) (Negative); Urine Ketones Trace mg/dL (Negative); Urine Protein 100 (2+) mg/dL (Neg-Trace)
[2024-07-21] MEDS: Pantoprazole Sodium 40 MG/10 ML VIAL IVPUSH (10:12)
[2024-07-21 10:16] LABS: Bacteria Urine None Seen (None Seen); Hyaline Casts Urine 0-2 /LPF (0-2); RBC Urine >20 /HPF (0-2); WBC Urine 0-5 /HPF (0-5)
[2024-07-21 10:17] LABS: IDNOW Serial# 08D9AD1C; Strep A Nucleic Acid Negative (Negative)
[2024-07-21 10:25] LABS: Alanine Aminotransferase 14 U/L (0-31); Albumin Level 3.5 g/dL (3.5-5.0); Alkaline Phosphatase 125 U/L (39-117); Anion Gap 14 (12-20); Aspartate Amino Transferase 22 U/L (5-31); Bilirubin Total 0.7 mg/dL (0.0-1.0); Blood Urea Nitrogen 14 mg/dL (9-16); Calcium 9.1 mg/dL (8.4-10.2); Carbon Dioxide 24 mmol/L (22-29); Chloride 101 mmol/L (96-108); Creatinine Clr Calc Pharmacy 52.4; Estimated Glomerular Filt Rate > 60; Glucose Random 123 mg/dL (60-115); Magnesium 1.9 mg/dL (1.6-2.6); Potassium 3.5 mmol/L (3.3-5.1); Sodium 135 mmol/L (135-145); Total Protein 7.5 g/dL (6.5-8.0)
[2024-07-21 11:08] LABS: Influenza A PCR NEGATIVE (Negative); Influenza B PCR NEGATIVE (Negative); Resp Syncy Virus RNA Qual PCR NEGATIVE (Negative); SARS COV2 PCR INHOUSE NEGATIVE (Negative)
[2024-07-21 13:00] VITALS: BP 144/76; PULSE 77; RESP 15; TEMP 36.8; O2SAT 94
[2024-07-21 13:05] VITALS: RESP 14
[2024-07-21] MEDS: Morphine Sulfate 4 MG/ML CARTRIDGE IVPUSH (13:05)
--- NOTE | 2024-07-21 13:12 | PHA.MEDREC ---
Pharmacy Consult ? Medication Reconciliation Pharmacy has completed the medication reconciliation. Confirmed with patient, discharge papers, and claims. She last took her antibiotic last night at 0
--- NOTE | 2024-07-21 13:18 | P.HPHOSP_ITS ---
History of Present Illness Date of Service: 07/21/24 Chief Complaint: [age] year old women recently admited to [facility] and treated for UTI in the setting of obstructing renal calculi and Ecoli bacteremia. She reported she was discharged and felt ok but then pain returned. She reported LLQ abdominal pain as well as nausea and gagging but only clear sputum was coming up. She denied fever, chills, diarrhea, shortness of breath In the ED, she had CXR which showed possible small consolidation, no hypoxia. Abdominal CT showed extensive diverticulosis without acute diverticulitis but possibly some areas of chronic diverticulitis. She received a dose of Unasyn, IV protonix, Morphine and zofran. She will be admitted for treatment of CAP and abdominal pain Review of Systems 2 Review of Systems: Denies any recent fever chills or decrease in appetite respiratory denies any shortness, reported gagging on sputum cardiovascular Denied chest pain gastrointestinal See HPI genitourinary denies any dysuria frequency or hematuria musculoskeletal denies any joint pain or swelling neuropsych denies any weakness or seizures all other systems reviewed are negative [facility] Medical History Primary osteoarthritis of both hips Mixed hyperlipidemia Overweight (BMI 25.0-29.9) Primary osteoarthritis involving multiple joints Lumbar spondylosis Family History Father No problems noted. Mother Dementia Surgical History History of arthroplasty of right hip (~05/2023) Social History Household Members: Spouse Housing: Condominium Do you presently have visiting nurse or other home services: No Alcohol intake: never Patient Tobacco Use Status: Never used Tobacco e-Cigarette/Vaping Use: Never Used Second Hand Smoke Exposure: No Advance Directives: No Advance Directives Information Provided: No Do you have a plan to hurt others: No Plan service: No Current occupational status: employed Cognitive needs: No Hearing needs: No Vision needs: Yes Meds Allergies Allergy/AdvReac Type Severity Reaction Status Date / Time codeine [CODEINE] Allergy Intermediate NAUSEA/DIZZINESS, Verified 07/21/24 09:18 nausea Active Medications: Current Medications Acetaminophen (Acetaminophen 325 Mg Tablet) 650 mg PO Q6H PRN PRN Reason: Pain, Mild (Pain Scale 1-3), fever or headache Calcium Carbonate (Calcium Carbonate 750 Mg Tab.Chew) 750 mg PO Q4H PRN PRN Reason: Heartburn Ceftriaxone Sodium (Ceftriaxone Sodium 1 Gm Vial) 1 gm IVPUSH Q24H [facility] Heparin Sodium (Porcine) (Heparin Sodium,Porcine 5,000 Unit/Ml Vial) 5,000 unit SUBCUT Q12H [facility] Azithromycin 500 mg/ Sodium (Chloride) 250 mls @ 125 mls/hr IV Q24H [facility] Magnesium Hydroxide (Milk Of Magnesia 30 Ml Oral.Susp) 30 ml PO DAILY PRN PRN Reason: Constipation Melatonin (Melatonin 3 Mg Tablet) 6 mg PO BEDTIME PRN PRN Reason: Insomnia Ondansetron HCl (Ondansetron Hcl 4 Mg/2 Ml Vial) 4 mg IVPUSH Q8H PRN PRN Reason: Nausea and Vomiting Oxycodone HCl (Oxycodone Hcl Immed Release 5 Mg Tablet) 5 mg PO Q6H PRN PRN Reason: Pain, Moderate(Pain Scale 4-6) Sodium Chloride (0.9 % Sodium Chloride Flush 3 Ml Syringe) 3 ml IVFLUSH QSHIFT [facility] Home Medications ?Medication ?Instructions ?Recorded ?Confirmed ?Last Taken ?Type ascorbic acid (vitamin C) 500 mg 500 mg PO DAILY 03/08/23 07/21/24 06/30/24 History tablet,extended release cholecalciferol (vitamin D3) 25 25 mcg PO DAILY 03/08/23 07/21/24 07/20/24 21:00 History mcg (1,000 unit) tablet multivitamin 1 tab PO DAILY 03/08/23 07/21/24 06/30/24 History Physical Exam 2 Vital Signs and Narrative: Vital Signs: Last Vital Signs Temp 98.2 F 07/21/24 13:00 Pulse 77 07/21/24 13:00 Resp 14 07/21/24 13:05 BP 144/76 H 07/21/24 13:00 Pulse Ox 94 07/21/24 13:00 O2 Del Method Room Air 07/21/24 13:00 BMI result Body Mass Index 28.3 Appearing in no acute distress head is normocephalic atraumatic eyes pupils are PERRLA sclera is anicteric mouth throat mucous membranes are intact and moist neck is supple no lymphadenopathy, no JVD noted lung sounds are clear to auscultation heart regular rate rhythm, clear S1, S2 positive bowel sounds, abdomen is soft, tender to LLQ neuro patient is alert x3, no focal deficits Results Labs 07/21/24 10:00 07/21/24 10:00 Labs: Laboratory Results - last 24 hr 07/21/24 07/21/24 07/21/24 09:57 09:58 10:00 MCV 85.6 MCH 27.5 MCHC 32.1 RDW 13.4 Plt Count 329 MPV 9.2 L Immature Gran % (Auto) 0.5 H Neut % (Auto) 87.2 H Lymph % (Auto) 4.8 L [place] % (Auto) 6.9 Eos % (Auto) 0.3 Baso % (Auto) 0.3 Lymph # (Auto) 0.6 L [place] # (Auto) 0.9 Eos # (Auto) 0.0 Baso # (Auto) 0.0 Abs Immat Gran (auto) 0.07 H Absolute Neuts (auto) 11.2 H Absolute Nucleated RBC 0.000 Nucleated RBC % (auto) 0.0 Anion Gap 14 Estim Creat Clear Calc 52.4 Estimated GFR > 60 Random Glucose 123 H Calcium 9.1 Magnesium 1.9 Total Bilirubin 0.7 AST 22 ALT 14 Alkaline Phosphatase 125 H Total Protein 7.5 Albumin 3.5 Urine Color Yellow Urine Appearance Cloudy Urine pH 5.5 Ur Specific [place] 1.015 Urine Protein 100 (2+) H Urine Glucose (UA) Negative Urine Ketones Trace Urine Blood Large (3+) H Urine Nitrite Negative Ur Leukocyte Esterase Trace H Urine RBC >20 H Urine WBC 0-5 Ur Squamous Epith Cells 3-5 Urine Bacteria None Seen Hyaline Casts 0-2 Influenza Type A (PCR) NEGATIVE Influenza Type B (PCR) NEGATIVE RSV RNA Qual (PCR) NEGATIVE SARS-CoV-2 RNA (RT-PCR) NEGATIVE S. pyogenes GrpA SHIRLEY Negative Imaging Radiologist's Impressions: Impressions Abdomen/Pelvis CT 07/21/24 10:30 IMPRESSION: 1. The previously visualized obstructing 2 mm calculus in the mid to distal left ureter is no longer visualized. However, there is persistent but decreased mild hydronephrosis of the left kidney, mild left perinephric stranding, and mild stranding along the left ureter. Findings may represent sequelae of recently passed stone versus infection. Recommend clinical correlation with urinalysis. 2. Additional punctate nonobstructing renal calculi in the lower pole of the bilateral kidneys. 3. Extensive diverticulosis in the descending and sigmoid colon without secondary signs of acute diverticulitis. However, there is diffuse circumferential wall thickening in the sigmoid colon that may represent chronic diverticulitis. 4. Multiple new pulmonary nodules in the right lower lobe and right middle lobe, some of which have increased in size and others are stable when compared to CT obtained 8 days prior, but are new when compared to CT abdomen/pelvis dated 03/08/2023. Findings are concerning for infectious versus inflammatory nodules. Recommend chest CT in 8-12 weeks to assess for resolution. 5. Cholelithiasis without evidence of acute cholecystitis. 6. Hepatomegaly and hepatic steatosis. Fleischner guidelines were followed. Electronically signed by: Nehal Muñoz MD 07/21/2024 12:29 PM EST RP Chest X-Ray 07/21/24 10:30 IMPRESSION: Subpleural fibrosis and small patchy airspace opacities in the right and left midlung does not appear significantly changed. Electronically signed by: Lokesh Ward MD 07/21/2024 11:41 AM EST RP Assessment and Plan (1) Pneumonia: Status: Acute Plan 84 year old women admitted with abd pain and CAP CAP no sepsis, no hypoxia RSV, FLU and covid neg Rocephin and azithromycin antitussin supplemental oxygen as needed to keep o2 sats >92% Abdominal pain with nausea and vomiting acute diverticulitis vs chronic no diarrhea nausea and vomiting could be from abx as well as thick clear sputum already on abx for CAP clear diet for now GI consult to verify ct scan Leukocytosis ? from CAP no sepsis DVT prophylaxis with heparin Full code Quality Stroke Does the patient have a stroke diagnosis?: No VTE Prior VTE?: No VTE Risk Level:: Medical - moderate - high VTE Device Contraindication: Treatment Not Indicated VTE Drug Contraindication: N/A - Med Ordered
[2024-07-21] MEDS: ondansetron HCL 4 MG/2 ML VIAL IVPUSH (13:20)
[2024-07-21] MEDS: Ampicillin Sodium/Sulbactam Na 1.5 GM in 0.9 % Sodium Chloride 100 ML IV (13:21)
[2024-07-21] MEDS: Heparin Sodium,Porcine 5,000 UNIT/ML VIAL 5000 UNIT SUBCUT (13:35)
[2024-07-21] MEDS: cefTRIAXone sodium 1 GM VIAL IVPUSH (14:26)
[2024-07-21] MEDS: Azithromycin 500 MG in 0.9 % Sodium Chloride 250 ML 125 MG IV (14:31)
[2024-07-21 16:19] VITALS: BP 134/72; PULSE 72; RESP 16; TEMP 36.8; O2SAT 96
[2024-07-21] MEDS: oxyCODONE HCl Immed Release 5 MG TABLET PO (16:56)
[2024-07-21] MEDS: 0.9 % Sodium Chloride Flush 3 ML SYRINGE IVFLUSH ×2 (16:58→19:55)
[2024-07-21 19:07] VITALS: BP 138/67; PULSE 83; RESP 18; TEMP 36.5; O2SAT 94
[2024-07-21 23:17] VITALS: BMI 28.3
[2024-07-22 01:05] VITALS: BP 145/81; PULSE 84; RESP 18; TEMP 36.4; O2SAT 87
[2024-07-22 01:08] VITALS: O2SAT 95
[2024-07-22] MEDS: Heparin Sodium,Porcine 5,000 UNIT/ML VIAL 5000 UNIT SUBCUT ×2 (01:09→13:51)
[2024-07-22] MEDS: Acetaminophen 325 MG TABLET 650 MG PO (01:13)
[2024-07-22 03:11] VITALS: BP 130/70; PULSE 69; RESP 16; TEMP 36.5; O2SAT 96
[2024-07-22 06:15] LABS: Hematocrit 32.4 % (37.0-47.0); Hemoglobin 10.5 g/dl (12.0-16.0); Mean Corpuscular HGB Conc 32.4 g/dl (31.0-35.0); Mean Corpuscular Hemoglobin 27.9 pg (27.0-33.0); Mean Corpuscular Volume 85.9 fL (80.0-98.0); Mean Platelet Volume 9.6 fL (9.4-12.3); Platelet Count 328 X10*3/uL (160-400); Red Blood Count 3.77 X10*6/uL (4.20-5.50); Red Cell Distribution Width 13.5 % (11.0-16.0); White Blood Count 11.1 X10*3/uL (4.8-10.8)
[2024-07-22 06:16] LABS: Anion Gap 12 (12-20); Blood Urea Nitrogen 16 mg/dL (9-16); Calcium 9.1 mg/dL (8.4-10.2); Carbon Dioxide 27 mmol/L (22-29); Chloride 102 mmol/L (96-108); Creatinine Clr Calc Pharmacy 49.2; Estimated Glomerular Filt Rate > 60; Glucose Random 107 mg/dL (60-115); Magnesium 2.1 mg/dL (1.6-2.6); Potassium 4.3 mmol/L (3.3-5.1); Sodium 137 mmol/L (135-145)
[2024-07-22 07:29] VITALS: BP 135/79; PULSE 79; RESP 18; TEMP 36.2; O2SAT 92
[2024-07-22] MEDS: 0.9 % Sodium Chloride Flush 3 ML SYRINGE IVFLUSH ×3 (09:57→23:24)
--- NOTE | 2024-07-22 10:03 | CONS_ITS ---
DATE OF SERVICE: 07/22/2024 REFERRING PHYSICIAN: Olya Martin NP REASON FOR CONSULTATION: Diverticulitis. HISTORY OF PRESENT ILLNESS: The patient is a pleasant 84-year-old woman who was admitted to the hospital after presenting to the emergency department yesterday with complaints of abdominal pain, nausea, and sensation of gagging. She had recently been hospitalized with a renal stone and had urinary tract infection and was treated with antibiotics for E coli bacteremia. She was evaluated in the emergency department with laboratory studies documenting white blood cell count of 12.9 and mild anemia with a hematocrit of 36.4. She had no complaints of rectal bleeding or change in her bowel habits. CT scanning was obtained, which is reviewed. This is interpreted as showing extensive diverticulosis in the descending and sigmoid colon with diffuse circumferential wall thickening in the sigmoid colon suggestive of chronic diverticulitis. The patient believes she underwent colonoscopy many years ago. Review of the records show she underwent colonoscopy in November of 2017 with removal of polyps and ultimately required appendectomy because of a polypoid appendiceal lesion. 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 PAST MEDICAL HISTORY: 1. Nephrolithiasis. 2. Osteoarthritis. 3. Hyperlipidemia. 4. Elevated body mass index. 5. Lumbar spondylosis. 6. Colon polyps as above. CURRENT MEDICATIONS: Her current medication list is reviewed in the chart. ALLERGIES: CODEINE. FAMILY HISTORY: This is reviewed with the patient and is noncontributory. SOCIAL HISTORY: There is no current tobacco, alcohol, or substance abuse. REVIEW OF SYSTEMS: SKIN: No pruritus. HEENT: Negative. CARDIOPULMONARY: She denies shortness of breath or chest pain. GASTROINTESTINAL: As above. GENITOURINARY: Negative. NEUROPSYCHIATRIC: Negative. PHYSICAL EXAMINATION: GENERAL: Shows a pleasant female, lying comfortably in bed. VITAL SIGNS: Reviewed in the electronic medical record and are stable. SKIN: Anicteric. HEENT: Shows no scleral icterus. NECK: Without lymphadenopathy or thyromegaly. LUNGS: Clear. HEART: Shows regular rate and rhythm. S1, S2. No murmur. ABDOMEN: Soft without focal masses or tenderness. Bowel sounds are present. No organomegaly is noted. EXTREMITIES: Without edema. LABORATORY DATA AND IMAGING STUDIES: Reviewed. Her presentation appears consistent with diverticulitis and I agree with treating her with antibiotics and following her clinically. She has had some complaints of dysphagia, which could be further evaluated by speech pathology or with barium swallow and I discussed this with her as well. I do not think she needs endoscopy at this time. Followup colonoscopy after treatment of her underlying diverticular disease can be arranged as an outpatient. Thanks for asking me to see her. I will follow her in the hospital with you. MD GEMMA Mckeon/KANDIS / [phone]
--- NOTE | 2024-07-22 10:32 | P.PNIM_ITS ---
Subjective Subjective Date of Service: 07/22/24 Interval History: seen and examined reports coughing secondary to gag reflex from phlegm mark any dysphagia Review of Systems Negative except HPI/interval history. Physical Exam 2 Vital Signs: Vital Signs: Last Vital Signs Temp 97.1 F 07/22/24 07:29 Pulse 79 07/22/24 07:29 Resp 18 07/22/24 07:29 BP 135/79 07/22/24 07:29 Pulse Ox 92 07/22/24 07:29 O2 Del Method Nasal Cannula 07/22/24 07:29 O2 Flow Rate 2 07/22/24 07:29 BMI result Body Mass Index 28.3 Const: Other: General - no acute distress, appears comfortable Cardiovascular - regular rate and rhythm, S1-S2 Lungs - normal respiratory effort, clear to auscultation bilaterally, no wheezing Abdomen - soft, nontender, no rebound or guarding Extremities - no edema bilaterally Neuro - awake and alert, no focal deficits Objective Data Active Medications Acetaminophen (Acetaminophen 325 Mg Tablet) 650 mg PO Q6H PRN PRN Reason: Pain, Mild (Pain Scale 1-3), fever or headache Last Admin: 07/22/24 01:13 Dose: 650 mg Documented By: JERRY Calcium Carbonate (Calcium Carbonate 750 Mg Tab.Chew) 750 mg PO Q4H PRN PRN Reason: Heartburn Ceftriaxone Sodium (Ceftriaxone Sodium 1 Gm Vial) 1 gm IVPUSH Q24H [facility] Last Admin: 07/21/24 14:26 Dose: 1 gm Documented By: GERA Heparin Sodium (Porcine) (Heparin Sodium,Porcine 5,000 Unit/Ml Vial) 5,000 unit SUBCUT Q12H [facility] Last Admin: 07/22/24 01:09 Dose: 5,000 unit Documented By: JERRY Azithromycin 500 mg/ Sodium (Chloride) 250 mls @ 125 mls/hr IV Q24H [facility] Last Infusion: 07/21/24 18:58 Dose: Infused Documented By: JERRY Magnesium Hydroxide (Milk Of Magnesia 30 Ml Oral.Susp) 30 ml PO DAILY PRN PRN Reason: Constipation Melatonin (Melatonin 3 Mg Tablet) 6 mg PO BEDTIME PRN PRN Reason: Insomnia Ondansetron HCl (Ondansetron Hcl 4 Mg/2 Ml Vial) 4 mg IVPUSH Q8H PRN PRN Reason: Nausea and Vomiting Oxycodone HCl (Oxycodone Hcl Immed Release 5 Mg Tablet) 5 mg PO Q6H PRN PRN Reason: Pain, Moderate(Pain Scale 4-6) Last Admin: 07/21/24 16:56 Dose: 5 mg Documented By: GERA Sodium Chloride (0.9 % Sodium Chloride Flush 3 Ml Syringe) 3 ml IVFLUSH QSHIFT [facility] Last Admin: 07/22/24 09:57 Dose: 3 ml Documented By: ANA Labs 07/22/24 05:49 07/22/24 05:49 Labs: Laboratory Results - last 24 hr 07/21/24 07/22/24 09:58 05:49 MCV 85.9 MCH 27.9 MCHC 32.4 RDW 13.5 Plt Count 328 MPV 9.6 Absolute Nucleated RBC 0.000 Nucleated RBC % (auto) 0.0 Anion Gap 12 Estim Creat Clear Calc 49.2 Estimated GFR > 60 Random Glucose 107 Calcium 9.1 Magnesium 2.1 Influenza Type A (PCR) NEGATIVE Influenza Type B (PCR) NEGATIVE RSV RNA Qual (PCR) NEGATIVE SARS-CoV-2 RNA (RT-PCR) NEGATIVE Assessment and Plan (1) Diverticulitis: Status: Acute (2) Pneumonia: Status: Acute Plan Plan 84 year old women admitted with abd pain and CAP 1. Suspected acute diverticulitis continue antibiotics -- will add flagyl to coverage GI input appreciated 2. Question dysphagia to start with speech eval and possible barium if needed GI input appreciated 3. Possible CAP cxr showing fibrosis + right and left mid lung patchy opacities will treat with iv abx recs for repeat CT chest in 8-12 weeks to assess for resolution (see CT abd/pelvis for full details) 4. Recent E. coli bacteremia due to obstructing stone discharged on 7 days of ceftin with end date - 07/22 (will need furhter coverage for #1 and #2) DVT prophylaxis with heparin Full code reason for continued hospitalization: pt with diverticulitis and cap requiring iv abx + unclear etiology of dysphagia requiring further work up. Quality Stroke Does the patient have a stroke diagnosis?: No VTE Prior VTE?: No VTE Risk Level:: Medical - moderate - high VTE Device Contraindication: Treatment Not Indicated VTE Drug Contraindication: N/A - Med Ordered
[2024-07-22] MEDS: metroNIDAZOLE/NS 500 MG/100 ML PIGGYBACK 100 MG IV ×2 (11:50→17:57)
[2024-07-22] MEDS: oxyCODONE HCl Immed Release 5 MG TABLET PO (12:09)
[2024-07-22] MEDS: Azithromycin 500 MG in 0.9 % Sodium Chloride 250 ML 125 MG IV (13:50)
[2024-07-22] MEDS: cefTRIAXone sodium 1 GM VIAL IVPUSH (13:52)
--- NOTE | 2024-07-22 14:09 | MHC.SL.SWA ---
Speech Pathologist Impression: Pharyngeal dysphagia of unknown etiology Risk of Aspiration Due to: Poor PO Intake Suspected diverticulitis Dysphasia Diet Status: Clear liquid diet, thin consistency Liquid Consistency and Strategies for Safe Swallow: Liquid Intake Recommendation: Thin Liquid Intake Strategies: Solid Food Consistency: Dietary Recommendations: Clear liquid diet Additional Modifications to Solid Foods: Oral Medication Intake: Whole with Liquid Please contact the pharmacy regarding appropriate crushable or liquid drug formulations that are available whenever modified delivery is recommended. Compensatory Strategies and Precautions to be Taken for Safe Swallow: Sitting Upright (90 deg) Small Bites and Sips Rate of Ingestion Change Supervision While Eating and Drinking for Safe Swallow: None Needed Foods to Avoid: Swallowing Recommended Treatments: Compens. Strategy Educat. Recommendation for Speech: Modified Barium Swallow Study - Outpatient Comment: 84 year old women admitted with abd pain and CAP, suspected acute diverticulitis. Rec MBSS d/t unclear etiology of dysphagia, may require further intervention. Frequency/Duration: Date Range for Service Req: Timeline to reassess: Angle Dozer Operator Clinican/Clinical Fellow: No Supervisory Statement: I have reviewed and agree with the student/clinical fellow's documentation: N/A Speech Language Pathologist: Kimmy Banegas M.S., CCC-CATALYTIC CONVERTER OPERATOR
[2024-07-22 15:26] VITALS: BP 149/69; PULSE 72; RESP 18; TEMP 36.8; O2SAT 92
[2024-07-22 19:09] VITALS: BP 158/82; PULSE 93; RESP 17; TEMP 36.8; O2SAT 92
[2024-07-23] MEDS: Heparin Sodium,Porcine 5,000 UNIT/ML VIAL 5000 UNIT SUBCUT ×2 (02:04→15:01)
[2024-07-23] MEDS: metroNIDAZOLE/NS 500 MG/100 ML PIGGYBACK 100 MG IV ×2 (02:04→11:07)
[2024-07-23 03:45] VITALS: BP 159/78; PULSE 81; RESP 17; TEMP 37.7; O2SAT 93
[2024-07-23 07:49] VITALS: BP 154/82; PULSE 82; RESP 16; TEMP 37.4; O2SAT 91
[2024-07-23] MEDS: 0.9 % Sodium Chloride Flush 3 ML SYRINGE IVFLUSH ×2 (09:31→15:37)
--- NOTE | 2024-07-23 09:48 | P.PNIM_ITS ---
Subjective Subjective Date of Service: 07/23/24 Interval History: seen and examined reports odynophagia (posterior pharynx) Review of Systems Negative except HPI/interval history. Physical Exam 2 Vital Signs: Vital Signs: Last Vital Signs Temp 99.4 F 07/23/24 07:49 Pulse 82 07/23/24 07:49 Resp 16 07/23/24 07:49 BP 154/82 H 07/23/24 07:49 Pulse Ox 91 L 07/23/24 07:49 O2 Del Method Room Air 07/23/24 07:49 O2 Flow Rate 2 07/22/24 07:29 BMI result Body Mass Index 28.3 Const: Other: General - appears fatigued HEENT - unable to fully visualize posterior pharynx but no exudates or erythema appreciated Cardiovascular - regular rate and rhythm, S1-S2 Lungs - normal respiratory effort, clear to auscultation bilaterally, no wheezing Abdomen - soft, nontender, no rebound or guarding Extremities - no edema bilaterally Neuro - awake and alert, no focal deficits Objective Data Active Medications Acetaminophen (Acetaminophen 325 Mg Tablet) 650 mg PO Q6H PRN PRN Reason: Pain, Mild (Pain Scale 1-3), fever or headache Last Admin: 07/22/24 01:13 Dose: 650 mg Documented By: NATHANIELRISM Benzocaine (Throat Lozenge, Medicated Lozenge) 1 lozenge MUCOUS MEM Q2H PRN PRN Reason: Sore Throat Calcium Carbonate (Calcium Carbonate 750 Mg Tab.Chew) 750 mg PO Q4H PRN PRN Reason: Heartburn Ceftriaxone Sodium (Ceftriaxone Sodium 1 Gm Vial) 1 gm IVPUSH Q24H [facility] Last Admin: 07/22/24 13:52 Dose: 1 gm Documented By: ANA Heparin Sodium (Porcine) (Heparin Sodium,Porcine 5,000 Unit/Ml Vial) 5,000 unit SUBCUT Q12H [facility] Last Admin: 07/23/24 02:04 Dose: 5,000 unit Documented By: BENJAMÍN Azithromycin 500 mg/ Sodium (Chloride) 250 mls @ 125 mls/hr IV Q24H [facility] Last Infusion: 07/22/24 16:42 Dose: Infused Documented By: VANESSA Metronidazole (Flagyl) 500 mg in 100 mls @ 100 mls/hr IV Q8H [facility] Last Infusion: 07/23/24 03:05 Dose: Infused Documented By: BENJAMÍN Lactated Ringer's (Lr) 1,000 mls @ 100 mls/hr IVCONT .Q10H [facility] Stop: 07/23/24 19:14 Magnesium Hydroxide (Milk Of Magnesia 30 Ml Oral.Susp) 30 ml PO DAILY PRN PRN Reason: Constipation Melatonin (Melatonin 3 Mg Tablet) 6 mg PO BEDTIME PRN PRN Reason: Insomnia Ondansetron HCl (Ondansetron Hcl 4 Mg/2 Ml Vial) 4 mg IVPUSH Q8H PRN PRN Reason: Nausea and Vomiting Oxycodone HCl (Oxycodone Hcl Immed Release 5 Mg Tablet) 5 mg PO Q6H PRN PRN Reason: Pain, Moderate(Pain Scale 4-6) Last Admin: 07/22/24 12:09 Dose: 5 mg Documented By: ANA Sodium Chloride (0.9 % Sodium Chloride Flush 3 Ml Syringe) 3 ml IVFLUSH QSHIFT [facility] Last Admin: 07/23/24 09:31 Dose: 3 ml Documented By: TRISTONTA Labs 07/22/24 05:49 07/22/24 05:49 Microbiology Microbiology Results: Microbiology 07/21/24 14:03 Blood Culture - Preliminary Blood - Venous No growth after 24 hours. 07/21/24 14:03 Blood Culture - Preliminary Blood - Venous No growth after 24 hours. Assessment and Plan (1) Diverticulitis: Status: Acute (2) Pneumonia: Status: Acute Plan Plan 84 year old women admitted with abd pain and CAP 1. Suspected acute diverticulitis continue antibiotics -- will add flagyl to coverage GI input appreciated 2. Question dysphagia/odynophagia Gi input appreciated currently on clears with plans for MBBS when radiologist available will check strep screen and CT neck as patient unable to even tolerate liquids due to pain will start IVF x 1L may need re-eval from GI if above work up unrevealing prn analgeseics 3. Possible CAP cxr showing fibrosis + right and left mid lung patchy opacities will treat with iv abx recs for repeat CT chest in 8-12 weeks to assess for resolution (see CT abd/pelvis for full details) 4. Recent E. coli bacteremia due to obstructing stone discharged on 7 days of ceftin with end date - 07/22 (will need furhter coverage for #1 and #3) DVT prophylaxis with heparin Full code reason for continued hospitalization: pt with diverticulitis and cap requiring iv abx + unclear etiology of dysphagia/odynophagia requiring further work up. Quality Stroke Does the patient have a stroke diagnosis?: No VTE Prior VTE?: No VTE Risk Level:: Medical - moderate - high VTE Device Contraindication: Treatment Not Indicated VTE Drug Contraindication: N/A - Med Ordered
--- NOTE | 2024-07-23 10:17 | MHC.SPEECHCO ---
Pt off the floor for Soft Tissue Neck CT this morning. LABORATORY ANIMAL CARETAKER will return in the afternoon.
[2024-07-23] MEDS: iohexoL 350 MG/ML 100 ML INFUS..BTL IV (10:24)
[2024-07-23] MEDS: oxyCODONE HCl Immed Release 5 MG TABLET PO (11:06)
[2024-07-23] MEDS: Lactated Ringers 1,000 ML 100 ML IVCONT (11:07)
--- NOTE | 2024-07-23 12:27 | MHC.SL.DTX ---
Dysphagia Diet modifications: Last documented Solid diet consistencies: Clear Liquids Last documented Liquid consistency: Thin Changes made to current diet?: Yes Liquid Consistency and Strategies: Liquid Intake Recommendation: Thin Compensatory Strategies for Safe Swallow: Small Sips Unrestricted Compensatory Strategies for Safe Swallow(b): Sitting Upright (90 deg) Liquids from Spoon Small Bites and Sips Alternate Liquids/Solids Rate of Ingestion Change Oral Check Solid Food Consistency: Dietary Recommendations: Regular Additional Modifications to Solids: Chew food well Alternate bites and sips Remain upright Oral Medication Intake: Whole with Liquid Strategies and Precautions to be Taken for Safe Swallow: Sitting Upright (90 deg) Liquids from Spoon Small Bites and Sips Alternate Liquids/Solids Rate of Ingestion Change Oral Check Supervision While Eating and/Drinking: Intermittent Supervision Swallowing Recommended Treatments: Compens. Strategy Educat. Level of Impact on: Daily activities: None Education: None Employment: None Community: None Prognosis for Improvement: Good Recommendation for Speech: Comment: 84 year old women admitted with abd pain and CAP, suspected acute diverticulitis. [facility] MBSS d/t unclear etiology of dysphagia, may require further intervention. Additional Comments: Treatment: Pt seen at beside after a busy morning. Her Soft Neck CT came back with question of aspiration v. metastatic processes. She agrees to trial PO. Her reports of odynophagia are consistent. She reports that drinking warm liquids helps soothe the discomfort. She reports that sputum produced this morning was blood tinged, but that it has been cloudy white since. She agrees to trial solids and liquids at bedside. She tolerated Thin Liquids via Straw sip with no overt s/s of aspiration. She tolerated Puree Solid and Regular Solid with no overt s/s of aspiration. She complains of discomfort in her lower neck unchanged between items regardless of consistency. No evidence of oropharyngeal dysphagia present at bedside. MBSS service unavailable until next week with interventional radiologist out. CONTROL BOARD OPERATOR spoke with Pt about her consistency options and she is choosing to return to an unrestricted diet when medically cleared. She has good self-awareness and can select the items that she thinks she can tolerated. CONTROL BOARD OPERATOR will continue to follow. CONTROL BOARD OPERATOR spoke with Pt about her consistency options and she is choosing to return to an unrestricted diet when medically cleared. She has good self-awareness and can select the items that she thinks she can tolerated. CONTROL BOARD OPERATOR will continue to follow. Mid Wife Clinican/Clinical Fellow: No Supervisory Statement: I have reviewed and agree with the student/clinical fellow's documentation: N/A Speech Language Pathologist: Tucker Gandhi M.A., CCC-CONTROL BOARD OPERATOR
[2024-07-23] MEDS: Azithromycin 500 MG in 0.9 % Sodium Chloride 250 ML 125 MG IV (15:01)
[2024-07-23] MEDS: cefTRIAXone sodium 1 GM VIAL IVPUSH (15:02)
[2024-07-23 15:03] VITALS: BP 159/82; PULSE 77; RESP 18; TEMP 36.7; O2SAT 95
[2024-07-23] MEDS: ondansetron HCL 4 MG/2 ML VIAL IVPUSH (15:33)
[2024-07-23] MEDS: Sucralfate Oral Suspension 1 GM/10 ML ORAL.SUSP PO ×2 (15:36→20:08)
[2024-07-23 19:30] VITALS: BP 157/74; PULSE 94; RESP 18; TEMP 37.6; O2SAT 95
[2024-07-23] MEDS: metroNIDAZOLE 500 MG TABLET PO (20:08)
[2024-07-24] MEDS: Heparin Sodium,Porcine 5,000 UNIT/ML VIAL 5000 UNIT SUBCUT ×2 (01:31→14:39)
[2024-07-24 03:16] VITALS: BP 143/68; PULSE 82; RESP 16; TEMP 38; O2SAT 92
[2024-07-24] MEDS: Acetaminophen 325 MG TABLET 650 MG PO (03:16)
[2024-07-24 04:16] VITALS: TEMP 36.2
[2024-07-24 06:29] LABS: Hemoglobin 10.6 g/dl (12.0-16.0); Mean Corpuscular HGB Conc 32.1 g/dl (31.0-35.0); Mean Corpuscular Hemoglobin 27.6 pg (27.0-33.0); Mean Corpuscular Volume 85.9 fL (80.0-98.0); Mean Platelet Volume 9.4 fL (9.4-12.3); Platelet Count 394 X10*3/uL (160-400); Red Blood Count 3.84 X10*6/uL (4.20-5.50); Red Cell Distribution Width 13.7 % (11.0-16.0)
[2024-07-24 06:47] LABS: Anion Gap 11 (12-20); Blood Urea Nitrogen 10 mg/dL (9-16); Calcium 8.9 mg/dL (8.4-10.2); Carbon Dioxide 28 mmol/L (22-29); Chloride 102 mmol/L (96-108); Creatinine Clr Calc Pharmacy 48.1; Estimated Glomerular Filt Rate > 60; Glucose Random 109 mg/dL (60-115); Potassium 3.4 mmol/L (3.3-5.1); Sodium 138 mmol/L (135-145)
[2024-07-24 08:00] VITALS: BP 147/75; PULSE 69; RESP 16; TEMP 36.3; O2SAT 93
[2024-07-24] MEDS: Sucralfate Oral Suspension 1 GM/10 ML ORAL.SUSP PO ×4 (08:04→20:51)
[2024-07-24] MEDS: metroNIDAZOLE 500 MG TABLET PO ×3 (09:35→20:52)
--- NOTE | 2024-07-24 10:36 | P.PNIM_ITS ---
Subjective Subjective Date of Service: 07/24/24 Interval History: Being followed for pneumonia/diverticulitis and dysphagia Feels abdominal pain has significantly improved, denies shortness of breath, woke up soaking wet this morning, denies fever, no chills, no acute events overnight. Review of Systems All other system reviewed and are negative. Physical Exam 2 Vital Signs: Vital Signs: Last Vital Signs Temp 97.3 F 07/24/24 08:00 Pulse 69 07/24/24 08:00 Resp 16 07/24/24 08:00 BP 147/75 H 07/24/24 08:00 Pulse Ox 93 07/24/24 08:00 O2 Del Method Room Air 07/24/24 08:00 O2 Flow Rate 2 07/22/24 07:29 BMI result Body Mass Index 28.3 Const: Other: General resting comfortably in no acute distress. Neck no JVD. CVS regular rate rhythm, Respiratory lungs bilateral rhonchi, no respiratory distress, no wheeze Gastrointestinal abdomen soft, non tender, bowel sounds audible. Extremities no edema. Neuro non focal Skin no rash Objective Data Active Medications Acetaminophen (Acetaminophen 325 Mg Tablet) 650 mg PO Q6H PRN PRN Reason: Pain, Mild (Pain Scale 1-3), fever or headache Last Admin: 07/24/24 03:16 Dose: 650 mg Documented By: BENJAMÍN Azithromycin (Azithromycin 500 Mg Tablet) 500 mg PO Q24H [facility] Benzocaine (Throat Lozenge, Medicated Lozenge) 1 lozenge MUCOUS MEM Q2H PRN PRN Reason: Sore Throat Calcium Carbonate (Calcium Carbonate 750 Mg Tab.Chew) 750 mg PO Q4H PRN PRN Reason: Heartburn Cefuroxime Axetil (Cefuroxime Axetil 500 Mg Tablet) 500 mg PO Q12H [facility] Heparin Sodium (Porcine) (Heparin Sodium,Porcine 5,000 Unit/Ml Vial) 5,000 unit SUBCUT Q12H [facility] Last Admin: 07/24/24 01:31 Dose: 5,000 unit Documented By: BENJAMÍN Magnesium Hydroxide (Milk Of Magnesia 30 Ml Oral.Susp) 30 ml PO DAILY PRN PRN Reason: Constipation Melatonin (Melatonin 3 Mg Tablet) 6 mg PO BEDTIME PRN PRN Reason: Insomnia Metronidazole (Metronidazole 500 Mg Tablet) 500 mg PO TID [facility] Last Admin: 07/24/24 09:35 Dose: 500 mg Documented By: LINO Ondansetron HCl (Ondansetron Hcl 4 Mg/2 Ml Vial) 4 mg IVPUSH Q8H PRN PRN Reason: Nausea and Vomiting Last Admin: 07/23/24 15:33 Dose: 4 mg Documented By: TERRI Oxycodone HCl (Oxycodone Hcl Immed Release 5 Mg Tablet) 5 mg PO Q6H PRN PRN Reason: Pain, Moderate(Pain Scale 4-6) Last Admin: 07/23/24 11:06 Dose: 5 mg Documented By: ANDRES Sodium Chloride (0.9 % Sodium Chloride Flush 3 Ml Syringe) 3 ml IVFLUSH [facility] Last Admin: 07/24/24 08:04 Dose: Not Given Documented By: LINO Non-Admin Reason: No Access Sucralfate (Sucralfate Oral Suspension 1 Gm/10 Ml Oral.Susp) 1 gm PO QIDACHS [facility] Last Admin: 07/24/24 08:04 Dose: 1 gm Documented By: LINO Labs 07/24/24 06:05 07/24/24 06:05 Labs: Laboratory Results - last 24 hr 07/24/24 06:05 MCV 85.9 MCH 27.6 MCHC 32.1 RDW 13.7 Plt Count 394 MPV 9.4 Absolute Nucleated RBC 0.000 Nucleated RBC % (auto) 0.0 Anion Gap 11 L Estim Creat Clear Calc 48.1 Estimated GFR > 60 Random Glucose 109 Calcium 8.9 Microbiology Microbiology Results: Microbiology 07/21/24 14:03 Blood Culture - Preliminary Blood - Venous No growth after 48 hours. 07/21/24 14:03 Blood Culture - Preliminary Blood - Venous No growth after 48 hours. Assessment and Plan (1) Pneumonia: Status: Acute (2) Diverticulitis: Status: Acute (3) Abdominal pain: Status: Acute Plan 84 year old women admitted with abd pain and CAP 1. Suspected acute diverticulitis Mild left lower quadrant abdominal pain, continue Ceftin D3, and Flagyl D2 GI agree with treatment of acute diverticulitis Leukocytosis resolved, normal electrolytes Diet advanced to regular today 2. Question dysphagia/odynophagia Gi input appreciated CT neck showed no acute abnormality /speech therapy recommend MBBS when radiologist available likely outpatient. will need re-eval from GI if above work up unrevealing prn analgeseics /diet advanced to regular 3. Possible CAP cxr showing fibrosis + right and left mid lung patchy opacities Continue iv abx Ceftin day 3 and azithromycin D3 transitioned to by mouth antibiotics recs for repeat CT chest in 8-12 weeks to assess for resolution of bilateral nodules increased in size from prior study (see CT abd/pelvis for full details) 4. Recent E. coli bacteremia due to obstructing stone discharged on 7 days of ceftin with end date - 07/22 DVT prophylaxis with heparin Full code reason for continued hospitalization: pt with diverticulitis and cap requiring abx + unclear etiology of dysphagia/odynophagia requiring further work up. If stable may discharge home tomorrow Quality Stroke Does the patient have a stroke diagnosis?: No VTE Prior VTE?: No VTE Risk Level:: Medical - moderate - high VTE Device Contraindication: Treatment Not Indicated VTE Drug Contraindication: N/A - Med Ordered
[2024-07-24] MEDS: Azithromycin 500 MG TABLET PO (14:39)
[2024-07-24] MEDS: cefuroxime axetiL 500 MG TABLET PO (14:39)
[2024-07-24 15:11] VITALS: BP 133/71; PULSE 83; RESP 18; TEMP 36.5; O2SAT 96
[2024-07-24 19:56] VITALS: BP 130/75; PULSE 81; RESP 18; TEMP 36.8; O2SAT 93
[2024-07-24] MEDS: oxyCODONE HCl Immed Release 5 MG TABLET PO (20:51)
[2024-07-25] MEDS: Heparin Sodium,Porcine 5,000 UNIT/ML VIAL 5000 UNIT SUBCUT (02:49)
[2024-07-25] MEDS: cefuroxime axetiL 500 MG TABLET PO (02:49)
[2024-07-25 03:07] VITALS: BP 138/72; PULSE 77; RESP 16; TEMP 36.7; O2SAT 92
[2024-07-25] MEDS: Sucralfate Oral Suspension 1 GM/10 ML ORAL.SUSP PO ×2 (07:38→11:35)
[2024-07-25 08:00] VITALS: BP 125/71; PULSE 79; RESP 16; TEMP 36; O2SAT 93
[2024-07-25] MEDS: metroNIDAZOLE 500 MG TABLET PO (09:31)
--- NOTE | 2024-07-25 10:42 | MHC.CM.PN ---
IMM 07/25/24 Per MD rounds patient is ready to discharge today. Home self care. Patient will arrange for transportation home.
--- NOTE | 2024-07-25 12:20 | PM.DS ---
DS: Providers Provider Date of Service: 07/25/24 Date of admission: 07/21/24 13:12 Date of discharge: 07/25/24 Primary care physician: Sergo Sauer MD Consults: 07/21/24 13:15 Consult to Gastroenterology Routine Consulting Provider: Delroy Ferreira Reason for consultation: diverticulitis Attending physician on discharge: Young Cage Discharging clinician: Leila Iqbal DS: Diagnosis Discharge Diagnosis (1) Pneumonia: Status: Acute (2) Diverticulitis: Status: Acute (3) Abdominal pain: Status: Acute DS: Summary Hospital Course Hospital Course: From H&P on the day of admission 84 year old women recently admitted to [facility] and treated for UTI in the setting of obstructing renal calculi and Ecoli bacteremia. She reported she was discharged and felt ok but then pain returned. She reported LLQ abdominal pain as well as nausea and gagging but only clear sputum was coming up. She denied fever, chills, diarrhea, shortness of breath In the ED, she had CXR which showed possible small consolidation, no hypoxia. Abdominal CT showed extensive diverticulosis without acute diverticulitis but possibly some areas of chronic diverticulitis. She received a dose of Unasyn, IV protonix, Morphine and zofran. She will be admitted for treatment of CAP and abdominal pain Suspected acute diverticulitis Mild left lower quadrant abdominal pain; treated with Ceftin, and Flagyl GI agree with treatment of acute diverticulitis, no need for colonoscopy at this time. Leukocytosis resolved, normal electrolytes, has remained afebrile. Has been tolerating regular diet Question dysphagia/odynophagia CT neck showed no acute abnormality /speech therapy and tolerating regular diet - recommend MBBS outpatient Possible CAP cxr showing fibrosis + right and left mid lung patchy opacities. no hypoxia. recs for repeat CT chest in 8-12 weeks to assess for resolution of bilateral nodules increased in size from prior study (see CT abd/pelvis for full details) Recent E. coli bacteremia due to obstructing stone discharged on 7 days of ceftin with end date - 07/22 Time Attestation Discharge Coordination Time (in mins): 36 Quality: Safe Use of Opioids Does Pt have an Active Cancer Diagnosis on the Problem List?: No Quality: Stroke Does the patient have a stroke diagnosis?: No Physical Exam Vital Signs: Vital Signs: Last Vital Signs Temp 96.8 F 07/25/24 08:00 Pulse 79 07/25/24 08:00 Resp 16 07/25/24 08:00 BP 125/71 07/25/24 08:00 Pulse Ox 93 07/25/24 08:00 O2 Del Method Room Air 07/25/24 08:00 O2 Flow Rate 2 07/22/24 07:29 BMI result Body Mass Index 28.3 Const: Nutritional Appearance: well nourished Resp: Effort & Inspection: normal respiratory effort and no respiratory distress Cardio: Rate: regular rate Rhythm: regular rhythm GI: Palpation (GI): Soft to palpation and nontender Neuro: Cranial nerves: Yes CN's II-XII intact bilaterally DS: Data Data Completed and Pending Labs on day of discharge: Preliminary micro results at discharge 07/21/24 14:03 Blood Culture - Preliminary Blood - Venous No growth after 48 hours. 07/21/24 14:03 Blood Culture - Preliminary Blood - Venous No growth after 48 hours. Discharge Plan Discharge Anticipated Discharge Date/Time: 07/25/24 12:39 Patient Disposition: Home, Self-Care Discharge Diagnosis: pneumonia, diverticulitis pulmonary nodules Referrals: Sergo Sauer MD [Primary Care Provider] - 1 Week Discharge Medications: New azithromycin 500 mg Tablet 500 mg PO Q24H 2 Days Qty: 2 0RF metronidazole 500 mg Tablet 500 mg PO TID 6 Days Qty: 18 0RF cefuroxime axetil 500 mg tablet 500 mg PO Q12H 6 Days Qty: 12 0RF Continued multivitamin Tablet 1 tab PO DAILY ascorbic acid (vitamin C) 500 mg Tablet Extended Release 500 mg PO DAILY cholecalciferol (vitamin D3) 25 mcg (1,000 unit) Tablet 25 mcg PO DAILY dextromethorphan-guaifenesin 10-100 mg/5 mL Syrup 10 ml PO TID Qty: 237 0RF Discontinued cefuroxime axetil 500 mg tablet 500 mg PO Q12H 7 Days Qty: 14 0RF Discharge Orders: Discharge Order (Routine); Ordered 07/25/24 Ordered By: Leila Iqbal Activity on Discharge: As tolerated Stand Alone Forms: Patient Portal Discharge page, Work/School Release Print Language: Citizen Of [place] Other Ambulatory Orders: [place] Modified Barium Swallow (ONCE) Timeframe: [id number] Facility: [facility] - Location: Radiology Ordered By: Leila Iqbal Care Plan Goals: see below Health Concerns: Acute diverticulitis, possible pneumonia Pulmonary nodules dysphagia Plan of Treatment: Complete course of antibiotics as prescribed Outpatient modified barium swallow recommended Call to schedule follow-up appointment with PCP recommend repeat chest ct in 8-12 weeks to follow pulmonary nodules Assessment: see discharge summary
--- NOTE | 2024-07-25 12:51 | MHC.CM.PN ---
IMM 07/25/24 Patient is discharged to home today. She will return to [facility] program. Her BLOW DOWN HELPER will continue services. [facility] will pick her up via WC van at 2pm.
--- NOTE | 2024-07-29 08:59 | PC.NURSE ---
late entry: patient did request Oxycondone for her pain control, this RN did not ask provider for something different.
== END 2024-07-25 14:00 | disposition home or self-care (01) | DRG 391 ==
LOC: HO.ED 12:52 → HO.EDOVER 13:23 → HO.S3 15:28
PROVIDERS: Family Medicine; Physician Assistant Medical; Admitting Provider Nurse Practitioner Acute Care; Emergency Provider Emergency Medicine Emergency Medical Services; PCP Internal Medicine; Visit Provider Physician Assistant Medical
DX: K57.32 Diverticulitis of large intestine without perforation or abscess without bleeding (principal); J18.9 Pneumonia, unspecified organism; R13.10 Dysphagia, unspecified; J84.10 Pulmonary fibrosis, unspecified; Z20.822 Contact with and (suspected) exposure to COVID-19; Z79.899 Other long term (current) drug therapy
CPT/HCPCS: 0241U; 36415; 70491; 71046; 74176; 80048; 80053; 81001; 83735; 85025; 85027; 87040; 87651; 92526; 92610; 99221; 99285; J0295; J0456; J0696; J1644; J1836; J2270; J2405; J2470; J7120; Q9967

== ENCOUNTER 2024-07-21 13:12 | Outpatient (BNV) | payer OTHER, SELFPAY | END 2024-07-23 10:05 | PROVIDERS: Admitting Provider Nurse Practitioner Acute Care; Emergency Provider Emergency Medicine Emergency Medical Services; PCP Internal Medicine; Visit Provider Radiology Diagnostic Radiology | DX: E04.1 Nontoxic single thyroid nodule (principal); R91.8 Other nonspecific abnormal finding of lung field | CPT/HCPCS: 70491 ==

== ENCOUNTER → 2024-07-21 13:12 | Outpatient (BNV) | payer OTHER, SELFPAY | PROVIDERS: Admitting Provider Nurse Practitioner Acute Care; Emergency Provider Emergency Medicine Emergency Medical Services; PCP Internal Medicine; Visit Provider Family Medicine | DX: J18.9 Pneumonia, unspecified organism (principal); K57.92 Diverticulitis of intestine, part unspecified, without perforation or abscess without bleeding | CPT/HCPCS: 99222; 99232; 99239 ==

== ENCOUNTER 2024-07-30 15:41 | Outpatient (AMB) | payer OTHER, SELFPAY ==
--- NOTE | 2024-07-30 15:44 | MHC.PC.OV ---
Vital Signs 07/30/24 15:45 Height 5 ft 3 in Weight 156 lb 6 oz BMI 27.7 BP 122/76 Blood Pressure Location Lt brachial Position Sitting Pulse 95 Pulse Source Pulse Oximeter Pulse Oximetry (%) 94 Oxygen Delivery Method Room Air Intake Visit Reasons: [facility] [place] 07/25 pneumonia [employer] Required: No Accompanied by: Self / Same As Patient Allergies codeine [CODEINE] Allergy (Intermediate, Verified 07/31/24 04:37) NAUSEA/DIZZINESS, nausea Medication List - Last Reconciled 07/31/24 by Sergo Sauer MD ascorbic acid (vitamin C) ER 500 mg PO DAILY azithromycin 500 mg PO Q24H 2 days cefuroxime axetil 500 mg PO Q12H 6 days cholecalciferol (vitamin D3) 25 mcg PO DAILY dextromethorphan-guaifenesin 10-100 mg/5 mL 10 mL PO TID metronidazole 500 mg PO TID 6 days multivitamin 1 tab PO DAILY ondansetron 4 mg PO Q8H PRN 15 days trazodone 50 mg PO BEDTIME PRN Tobacco use date assessed: 07/30/24 Fall risk assessment: No Falls in past year Last assessed Fall Risk: 07/30/24 Dental Screening Dental Screen Date: 07/30/24 Did you have a dental visit in the last 12 months?: Yes Did you have a dental problem in the last 6 months where you did not have access to dental care?: No Was dental information given to patient?: Patient has dentist HPI [facility] [place] 07/25 pneumonia HPI Details Patient comes in today for her HDF follow up visit She was admitted to [facility] [place] for a few days last week for diverticulitis and pneumonia She was also admitted to [facility] [place] the week prior for an obstructing left ureteral calculus and new hydronephrosis and proximal hydroureter and was managed medically after which she passed the kidney stone spontaneously Patient was also complaining of increased cough and congestion at this time and she was discharged home on oral Ceftin Currently, patient is still finishing up her Abx consisting of Metronidazole and Cefuroxime (she finished Azithromycin a couple of days ago) but she is finding it difficult to continue taking her medications due to increased nausea She feels that her abdominal symptoms have not improved as much as they should as she is still experiencing a lot of abdominal bloating and discomfort She also continues to present with increased phlegm in her throat Patient adds that she had not been able to sleep much at night lately, which is adding to her fatigue and overall sense of unwellness She denies any fever, headaches or dizziness Denies any chest pains, no increased shortness of breath although she still has some lingering chest congestion, cough and phlegm production; she denies any trouble swallowing Reports (+) frequent nausea that she feels is made worse by her current antibiotics; denies any vomiting States that she still has some lower abdominal pain and discomfort but denies any diarrhea [facility] Medical History Primary osteoarthritis of both hips Mixed hyperlipidemia Overweight (BMI 25.0-29.9) Primary osteoarthritis involving multiple joints Lumbar spondylosis Surgical History History of arthroplasty of right hip (~05/2023) Family History Father No problems noted. Mother Dementia Social History Household Members: [facility] Do you presently have visiting nurse or other home services: No Alcohol intake: never Patient Tobacco Use Status: Never used Tobacco e-Cigarette/Vaping Use: Never Used Second Hand Smoke Exposure: No service: No Current occupational status: employed Cognitive needs: No Hearing needs: No Vision needs: Yes Questionnaire PHQ-9 Over the last 2 weeks, how often have you been bothered by any of the following problems? 1. Little interest or pleasure in doing things: not at all 2. Feeling down, depressed, or hopeless: several days 3. Trouble falling or staying asleep, or sleeping too much: not at all 4. Feeling tired or having little energy: not at all 5. Poor appetite or overeating: not at all 6. Feeling bad about yourself - or that you are a failure or have let yourself or your family down: not at all 7. Trouble concentrating on things, such as reading the newspaper or watching television: not at all 8. Moving or speaking so slowly that other people could have noticed. Or the opposite - being so fidgety or restless that you have been moving around a lot more than usual: not at all 9. Thoughts that you would be better off or of hurting yourself in some way: not at all Total score: 1 Depression Screening Interpretation: Negative Depression Screening Done: Yes 91087 - PHQ-9 Billing: Yes Source: Developed by Drs. Holden Lion, Priya Acharya, Bucky Alcantar and colleagues, with an educational amber from [employer]. Thrive Questionnaire Date Thrive assessed: 07/30/24 I am a: Patient What is your living situation today?: I have a steady place to live Within the past 12 months, did the food you bought not last and you didn't have the money to get more?: Never true Within the past 12 months, did you worry whether your food would run out before you got money to buy more?: Never true Do you have trouble paying for medicines?: No Do you have trouble getting transportation to medical appointments?: No Do you have trouble paying your heating and electricity bill?: No Do you have trouble taking care of your child, family member or friend?: No Do you have trouble with day-to-day activities such as bathing, preparing meals, shopping, managing finances, etc.?: No Are you currently unemployed and looking for a job?: No Are you interested in more education?: No Please select the resources that you would like help with: None Currently or been in a relationship where the following occur: No concerns reported THRIVE Score: 0 AUDIT C Alcohol Use Questionnaire (AUDIT-C) 1. How often do you have a drink containing alcohol?: Never 3. How often do you have six or more drinks on one occasion?: Never Total Score: 0 Score Reviewed/Action Taken: Yes SHREYAS-7 AMB Questionnaire SHREYAS-7 Date SHREYAS - 7 assessed: 07/30/24 Feeling nervous, anxious, or on edge: 0 = Not at all Not being able to stop or control worryin = Not at all Worrying too much about different things: 0 = Not at all Trouble relaxin = Not at all Being so restless that it is hard to sit still: 0 = Not at all Becoming easily annoyed or irritable: 0 = Not at all Feeling afraid as if something awful might happen: 0 = Not at all Total SHREYAS-7 score (0-4 normal; 5-9 mild; 10-14 moderate; 15-21 severe): 0 Source: Developed by Drs. Holden Lion, Priya Acharya, Bucky Alcantar and colleagues, with an educational amber from [employer]. Review of Systems Const Denies chills, Reports difficulty sleeping, Reports fatigue, Denies fever(s) and Denies headache(s) ENT Denies dysphagia, Denies dizziness, Denies otalgia, Denies headache(s), Denies neck pain, Denies odynophagia and Denies sore throat Card Denies chest pain, Denies palpitations and Denies dyspnea Resp Denies chest congestion, Reports cough (on and off), Reports excessive phlegm production, Denies dyspnea and Denies wheezing GI Reports abdominal pain (mild residual pain over the lower abdomen), Reports bloating, Denies constipation, Denies dysphagia, Denies heartburn, Denies diarrhea, Reports nausea (frequent), Denies odynophagia and Denies vomiting Denies difficulty voiding, Denies nocturia, Denies dysuria and Denies urinary urgency Musc Denies back pain, Denies arthralgias and Denies neck pain Skin/Breast Denies rash Neuro Denies dizziness and Denies headache(s) Endo Reports fatigue and Denies palpitations Aller/Immun Denies wheezing Physical exam (Primary Care) Vital Signs: Last Vital Signs Pulse 95 07/30/24 15:45 BP 122/76 07/30/24 15:45 Pulse Ox 94 07/30/24 15:45 Oxygen Delivery Method Room Air 07/30/24 15:45 BMI result Body Mass Index 27.7 Tobacco/Smoking Status: Tobacco use Status Tobacco use date assessed 07/30/24 07/30/24 15:48 Patient Tobacco Use Status Never used Tobacco 07/30/24 15:48 e-Cigarette/Vaping Use Never Used 07/30/24 15:48 PHQ-9: PHQ-9 Score PHQ-9: Total score 1 07/30/24 16:15 Depression Screening Interpretation: Negative Thrive Assessment: Date of Thrive Assessment Date Thrive assessed 07/30/24 07/30/24 15:48 Currently or been in a relationship where the following occur: No concerns reported Const General: no acute distress, alert and tired appearing HENMT Throat: Yes posterior oropharynx normal and Yes tonsils normal Neck Neck: Yes supple and No lymphadenopathy Thyroid: Thyroid normal Resp Auscultation: clear to auscultation bilaterally, no rales and no wheezes Cardio Rate: regular rate Rhythm: regular rhythm Heart sounds: no murmurs GI Palpation (GI): Soft to palpation, Tenderness to palpation present (GI) (mild, over the lower abdomen), no guarding, not rigid and No Rebound tenderness present Auscultation: normal bowel sounds General: No CVA tenderness Back/Spine/Pelvis Back: No CVA tenderness Skin Rashes: no rashes Extrem General: Yes no clubbing, cyanosis or edema Left lower extremity: hip/thigh (minimal) Details: tenderness Location: of the hip Coding Level of Care Code Est Pt Level 4 (73049) Diagnoses Pulmonary nodules R91.8 Pneumonia of both lungs due to infectious organism, unspecified part of lung J18.9 Pneumonia type: due to unspecified organism Laterality: bilateral Lung location: unspecified part of lung Diverticulitis K57.92 Insomnia due to medical condition G47.01 Insomnia type: due to medical condition Additional Codes PHQ-9 - 07080 - PHQ-9 Billing: Yes ([id number]) Assessment & Plan Assessment & Plan (1) Pulmonary nodules: Code(s): R91.8 - Other nonspecific abnormal finding of lung field Category: Medical Plan: Patient had a CT of the soft tissues of the neck done a week ago came out with no acute findings and no abnormalities in the neck but it did shows incidentally some numerous nodular ill-defined opacities in the upper lungs with associated mosaic attenuation which could represent infectious, inflammatory or neoplastic entities a follow-up dedicated CT of the chest in 8-12 weeks will be ordered for further evaluation of these nodules (2) Pneumonia: Code(s): J18.9 - Pneumonia, unspecified organism Category: Medical Qualifiers: Pneumonia type: due to unspecified organism Laterality: bilateral Lung location: unspecified part of lung Qualified Code(s): J18.9 - Pneumonia, unspecified organism Plan: Patient's most recent chest x-rays done back on 07/21/2024 revealed (+) subpleural fibrosis and small patchy airspace opacities in the right and left mid lung that are similar in appearance to her x-rays done a week ago on 07/13/2024 Patient is currently still finishing up her antibiotic treatment - Cefuroxime 500 mg BID x 10 days Advised that this should continue to improve along with gradual resolution of her cough and increased phlegm production but advised to seek medical attention if she experiences any worsening shortness of breath at any time (3) Diverticulitis: Code(s): K57.92 - Diverticulitis of intestine, part unspecified, without perforation or abscess without bleeding Category: Medical Plan: Patient is currently still experiencing a lot of abdominal bloating and lower abdominal pain and discomfort although she admits that her symptoms have improved from a week ago She is still also experiencing frequent nausea that makes it difficult for her to continue taking her prescribed Metronidazole she still has several pills on her current prescriptions Have advised patient that she should try to continue incomplete Metronidazole 500 mg TID to ensure resolution of her diverticulitis Will provide her with a prescription for Ondansetron oral disintegrating tablets 4 mg Q 8 hours PRN for her nausea and this may make it easier for her to continue taking her current Abx Rxs Will refer her to Gastroenterology for follow-up and further evaluation Have advised patient to also start trying to eat something - to start off with some soup and crackers and she can gradually advance her diet as tolerated Advised that if she can get back to eating normally, this should also help speed up her recovery and clear up her gastrointestinal symptoms (4) Insomnia: Code(s): G47.00 - Insomnia, unspecified Category: Medical Qualifiers: Insomnia type: due to medical condition Qualified Code(s): G47.01 - Insomnia due to medical condition Plan: Discussed with patient that this is likely just due to her current condition and issues she has not had this problem in the past Will try starting her for now on Trazodone 50 mg Q HS PRN Advised that this is likely just temporary and once she is able to sleep better, she can stop taking this completely Plan Follow up as scheduled in early September 2024 Orders: Orders CT chest wo IV con 3 Months R91.8 - Other nonspecific abnormal finding of lung field Referrals Gastroenterology Referral K57.92 - Diverticulitis of intestine, part unspecified, without perforation or abscess without bleeding, R10.9 - Unspecified abdominal pain Medications: New ondansetron 4 mg PO Q8H 15 days PRN 45 tabs 1RF nausea and vomiting trazodone 50 mg PO BEDTIME PRN 30 tabs 0RF sleep
[2024-07-30 15:45] VITALS: BP 122/76; PULSE 95; O2SAT 94; BMI 27.7
== END 2024-07-30 16:21 | disposition home or self-care (01) ==
PROVIDERS: PCP Internal Medicine; Visit Provider Internal Medicine
DX: R91.8 Other nonspecific abnormal finding of lung field (principal); J18.9 Pneumonia, unspecified organism; K57.92 Diverticulitis of intestine, part unspecified, without perforation or abscess without bleeding; G47.01 Insomnia due to medical condition

== ENCOUNTER → 2024-07-30 15:41 | Outpatient (BNVA) | payer OTHER, SELFPAY | PROVIDERS: PCP Internal Medicine; Visit Provider Internal Medicine | DX: R91.8 Other nonspecific abnormal finding of lung field (principal); J18.9 Pneumonia, unspecified organism; K57.92 Diverticulitis of intestine, part unspecified, without perforation or abscess without bleeding; G47.01 Insomnia due to medical condition | CPT/HCPCS: 96127 ==

== ENCOUNTER 2024-10-28 16:17 | Outpatient (REF) | payer OTHER, SELFPAY ==
--- NOTE | ~2024-10-28 | CT_ITS ---
CLINICAL HISTORY: R91.8 - Other nonspecific abnormal finding of lung field CT chest without contrast Comparison: CR/SR - XR CHEST 2V - 07/21/24 10:41 EST Findings: The heart size is normal. 15 mm nodule within the right lobe of the thyroid gland. Borderline enlarged precarinal lymph node measuring 1 cm in short axis dimension. Small foci of honeycombing and traction bronchiectasis within the medial aspects of the bilateral lower lobes, [id number]. Peripheral reticular opacities are present within the bilateral lungs, compatible with interstitial scarring, most pronounced within the lower lobes. No consolidation or pleural effusion. 12 mm part solid nodule within the right upper lobe on image 69. Solid component estimated at 6 mm. 12 mm part solid nodule within the right upper lobe. Recommend CT follow-up in 3-6 months. The upper abdomen is unremarkable. Mild compression fracture involving the superior endplate of T12. This appears chronic. IMPRESSION: 1. There is interstitial scarring, most pronounced within the bilateral lower lobes. 2. 15 mm nodule within the right lobe of the thyroid gland. This could be further evaluated with ultrasound. This document has been electronically signed by: Ibeth Higgins MD on 10/29/2024 16:06:15
== END 2024-10-28 16:18 | disposition home or self-care (01) ==
LOC: HO.CT 16:17
PROVIDERS: PCP Internal Medicine; Visit Provider Internal Medicine
DX: R91.8 Other nonspecific abnormal finding of lung field (principal)
CPT/HCPCS: 71250

== ENCOUNTER → 2024-10-28 16:19 | Outpatient (BNV) | payer OTHER, SELFPAY | PROVIDERS: PCP Internal Medicine; Visit Provider Radiology Diagnostic Radiology | DX: E04.1 Nontoxic single thyroid nodule (principal) | CPT/HCPCS: 71250 ==

== ENCOUNTER 2024-11-25 16:20 | Outpatient (AMB) | payer OTHER, SELFPAY ==
[2024-11-25 16:22] VITALS: BP 140/76; PULSE 66; O2SAT 96; BMI 28.6
--- NOTE | 2024-11-25 16:22 | MHC.PC.OV ---
Vital Signs 11/25/24 16:22 Height 5 ft 3 in Weight 161 lb 6 oz BMI 28.6 BP 140/76 H Blood Pressure Location Lt brachial Position Sitting Pulse 66 Pulse Source Pulse Oximeter Pulse Oximetry (%) 96 Oxygen Delivery Method Room Air Intake Visit Reasons: 6 month follow, CT review Yarn Examiner Required: No Accompanied by: Self / Same As Patient Allergies codeine [CODEINE] Allergy (Intermediate, Verified 11/25/24 16:49) NAUSEA/DIZZINESS, nausea Medication List - Last Reconciled 12/04/24 by Sergo Sauer MD ascorbic acid (vitamin C) ER 500 mg PO DAILY cholecalciferol (vitamin D3) 25 mcg PO DAILY multivitamin 1 tab PO DAILY trazodone 50 mg PO BEDTIME PRN Tobacco use date assessed: 11/25/24 Fall risk assessment: No Falls in past year Last assessed Fall Risk: 11/25/24 Dental Screening Dental Screen Date: 11/25/24 Did you have a dental visit in the last 12 months?: Yes Did you have a dental problem in the last 6 months where you did not have access to dental care?: No Was dental information given to patient?: Patient has dentist HPI 6 month follow, CT review HPI Details Patient comes in today for her follow up visit She had some pulmonary nodule seen incidentally on imaging studies of the soft tissue of the neck back in June 2024 and was scheduled for a chest CT for further evaluation of these pending resolution of her pneumonia at the time Patient finally had her chest CT done last month and she is in today to find out the results of her recent scan States that she feels okay She denies any headaches or dizziness Denies any chest pains, no increased shortness of breath No nausea/vomiting, no abdominal pain No change in bowel habits noted She has no recent follow-up labs done [facility] Medical History (Updated 12/04/24 @ 05:43 by Sergo Sauer MD) Vitamin D deficiency Primary osteoarthritis of both hips Mixed hyperlipidemia Overweight (BMI 25.0-29.9) Primary osteoarthritis involving multiple joints Lumbar spondylosis Surgical History History of arthroplasty of right hip (~05/2023) Family History Father No problems noted. Mother Dementia Social History Household Members: Spouse Housing: Condominium Do you presently have visiting nurse or other home services: No Alcohol intake: never Patient Tobacco Use Status: Never used Tobacco e-Cigarette/Vaping Use: Never Used Second Hand Smoke Exposure: No service: No Current occupational status: employed Cognitive needs: No Hearing needs: No Vision needs: Yes Questionnaire PHQ-9 Over the last 2 weeks, how often have you been bothered by any of the following problems? 1. Little interest or pleasure in doing things: not at all 2. Feeling down, depressed, or hopeless: not at all 3. Trouble falling or staying asleep, or sleeping too much: not at all 4. Feeling tired or having little energy: not at all 5. Poor appetite or overeating: not at all 6. Feeling bad about yourself - or that you are a failure or have let yourself or your family down: not at all 7. Trouble concentrating on things, such as reading the newspaper or watching television: not at all 8. Moving or speaking so slowly that other people could have noticed. Or the opposite - being so fidgety or restless that you have been moving around a lot more than usual: not at all 9. Thoughts that you would be better off or of hurting yourself in some way: not at all Total score: 0 Depression Screening Interpretation: Negative Depression Screening Done: Yes 28374 - PHQ-9 Billing: Yes Source: Developed by Drs. Holden Lion, Priya Acharya, Bucky Alcantar and colleagues, with an educational amber from [employer]. Thrive Questionnaire Date Thrive assessed: 11/25/24 I am a: Patient What is your living situation today?: I have a steady place to live Within the past 12 months, did the food you bought not last and you didn't have the money to get more?: Never true Within the past 12 months, did you worry whether your food would run out before you got money to buy more?: Never true Do you have trouble paying for medicines?: No Do you have trouble getting transportation to medical appointments?: No Do you have trouble paying your heating and electricity bill?: No Do you have trouble taking care of your child, family member or friend?: No Do you have trouble with day-to-day activities such as bathing, preparing meals, shopping, managing finances, etc.?: No Are you currently unemployed and looking for a job?: No Are you interested in more education?: No Please select the resources that you would like help with: None Currently or been in a relationship where the following occur: No concerns reported THRIVE Score: 0 AUDIT C Alcohol Use Questionnaire (AUDIT-C) 1. How often do you have a drink containing alcohol?: Never 3. How often do you have six or more drinks on one occasion?: Never Total Score: 0 Score Reviewed/Action Taken: Yes SHREYAS-7 AMB Questionnaire SHREYAS-7 Date SHREYAS - 7 assessed: 07/30/24 Feeling nervous, anxious, or on edge: 0 = Not at all Not being able to stop or control worryin = Not at all Worrying too much about different things: 0 = Not at all Trouble relaxin = Not at all Being so restless that it is hard to sit still: 0 = Not at all Becoming easily annoyed or irritable: 0 = Not at all Feeling afraid as if something awful might happen: 0 = Not at all Total SHREYAS-7 score (0-4 normal; 5-9 mild; 10-14 moderate; 15-21 severe): 0 Source: Developed by Drs. Holden Lion, Priya Acharya, Bucky Alcantar and colleagues, with an educational amber from [employer]. Review of Systems Const Denies chills, Reports difficulty sleeping, Denies fatigue, Denies fever(s) and Denies headache(s) ENT Denies dysphagia, Denies dizziness, Denies otalgia, Denies headache(s), Denies neck pain, Denies odynophagia and Denies sore throat Card Denies chest pain, Denies palpitations and Denies dyspnea Resp Denies chest congestion, Denies cough and Denies dyspnea GI Denies abdominal pain, Reports bloating, Denies constipation, Denies dysphagia, Denies heartburn, Denies diarrhea, Denies nausea, Denies odynophagia and Denies vomiting Denies difficulty voiding, Denies nocturia, Denies dysuria and Denies urinary urgency Musc Denies back pain, Denies arthralgias and Denies neck pain Skin/Breast Denies rash Neuro Denies dizziness and Denies headache(s) Endo Denies fatigue and Denies palpitations Physical exam (Primary Care) Vital Signs: Last Vital Signs Pulse 66 11/25/24 16:22 BP 140/76 H 11/25/24 16:22 Pulse Ox 96 11/25/24 16:22 Oxygen Delivery Method Room Air 11/25/24 16:22 BMI result Body Mass Index 28.6 Tobacco/Smoking Status: Tobacco use Status Tobacco use date assessed 11/25/24 11/25/24 16:26 Patient Tobacco Use Status Never used Tobacco 11/25/24 16:26 e-Cigarette/Vaping Use Never Used 11/25/24 16:26 PHQ-9: PHQ-9 Score PHQ-9: Total score 0 11/25/24 16:54 Depression Screening Interpretation: Negative Thrive Assessment: Date of Thrive Assessment Date Thrive assessed 11/24/24 11/25/24 16:26 Currently or been in a relationship where the following occur: No concerns reported Const General: no acute distress and alert HENMT Ears: TM's normal bilaterally and EAC's normal Throat: Yes posterior oropharynx normal and Yes tonsils normal Neck Neck: Yes supple and No lymphadenopathy Thyroid: Thyroid normal Resp Auscultation: clear to auscultation bilaterally, no rales and no wheezes Cardio Rate: regular rate Rhythm: regular rhythm Heart sounds: no murmurs GI Palpation (GI): Soft to palpation and nontender Auscultation: normal bowel sounds General: No CVA tenderness Back/Spine/Pelvis Back: No CVA tenderness Thoracic/Lumbar Spine: No lumbar spinal tenderness Skin Rashes: no rashes Extrem General: Yes no clubbing, cyanosis or edema Left lower extremity: hip/thigh (minimal) Details: tenderness Location: of the hip Coding Level of Care Code Est Pt Level 4 (55164) Diagnoses Pulmonary nodules R91.8 Thyroid nodule E04.1 Elevated blood pressure reading R03.0 Vitamin D deficiency E55.9 Lumbar spondylosis M47.816 Insomnia due to medical condition G47.01 Insomnia type: due to medical condition Additional Codes PHQ-9 - 29749 - PHQ-9 Billing: Yes ([id number]) Assessment & Plan Assessment & Plan (1) Pulmonary nodules: Code(s): R91.8 - Other nonspecific abnormal finding of lung field Category: Medical Plan: Patient had a CT of the soft tissues of the neck done late last year that came out with no acute findings and no abnormalities in the neck but it did shows incidentally some numerous nodular ill-defined opacities in the upper lungs with associated mosaic attenuation which could represent infectious, inflammatory or neoplastic entities A dedicated CT of the chest in 8-12 weeks was ordered for further evaluation of these nodules and patient eventually had her chest CT done last month, which revealed (+) interstitial scarring, most pronounced within the bilateral lower lobes. A 15 mm nodule within the right lobe of the thyroid gland and this could be further evaluated with ultrasound (2) Thyroid nodule: Code(s): E04.1 - Nontoxic single thyroid nodule Category: Medical Plan: This was seen incidentally on her recent chest CT - (+) 15 mm nodule in the right thyroid Will send patient for a thyroid US for further evaluation (3) Elevated blood pressure reading: Code(s): R03.0 - Elevated blood-pressure reading, without diagnosis of hypertension Category: Medical Plan: Her BP reading is again elevated today - may likely be partly due to anxiety Have advised patient of goal of systolic BP of at least 130 to 140 mm or less Reinforced low sodium diet (4) Vitamin D deficiency: Code(s): E55.9 - Vitamin D deficiency, unspecified Category: Medical Plan: Continue Vitamin D3 1000 units QD (5) Lumbar spondylosis: Code(s): M47.816 - Spondylosis without myelopathy or radiculopathy, lumbar region Category: Medical Plan: Reinforced activity and weight-lifting restrictions to avoid aggravating her lower back Lumbar spine x-rays done back in 2022 revealed (+) multilevel degenerative changes and L4-L5 grade 1 anterolisthesis without significant change from previous Patient states that her low back pains have been mostly tolerable/manageable lately (6) Insomnia: Code(s): G47.00 - Insomnia, unspecified Category: Medical Qualifiers: Insomnia type: due to medical condition Qualified Code(s): G47.01 - Insomnia due to medical condition Plan: Sleep hygiene reinforced Continue Trazodone 50 mg Q HS PRN Plan Follow up in 6 months She is reminded to try getting her follow-up labs done BEFORE she comes back for her next appointment in April 2025 Orders: Orders Comprehensive [place]. Panel Fast 6 Months E78.00 - Pure hypercholesterolemia, unspecified UA CC w/rflx Micro + Cult 6 Months R30.0 - Dysuria Vitamin D 25-OH Total 6 Months E55.9 - Vitamin D deficiency, unspecified IRON PROFILE 6 Months D50.9 - Iron deficiency anemia, unspecified Complete Blood Count Auto Diff 6 Months D64.9 - Anemia, unspecified Lipid Panel 6 Months E78.00 - Pure hypercholesterolemia, unspecified TSH reflex Free T4 6 Months E78.00 - Pure hypercholesterolemia, unspecified Hemoglobin A1c 6 Months E11.9 - Type 2 diabetes mellitus without complications Microalbumin, Random (w Creat) 6 Months E11.9 - Type 2 diabetes mellitus without complications Vitamin B12 and Folate 6 Months E53.8 - Deficiency of other specified B group vitamins
== END 2024-11-25 16:56 | disposition home or self-care (01) ==
LOC: HO.HMCH 16:20
PROVIDERS: PCP Internal Medicine; Visit Provider Internal Medicine
DX: R91.8 Other nonspecific abnormal finding of lung field (principal); E04.1 Nontoxic single thyroid nodule; R03.0 Elevated blood-pressure reading, without diagnosis of hypertension; E55.9 Vitamin D deficiency, unspecified; M47.816 Spondylosis without myelopathy or radiculopathy, lumbar region; G47.01 Insomnia due to medical condition

== ENCOUNTER → 2024-11-25 16:20 | Outpatient (BNVA) | payer OTHER, SELFPAY | PROVIDERS: PCP Internal Medicine; Visit Provider Internal Medicine | DX: R91.8 Other nonspecific abnormal finding of lung field (principal); E04.1 Nontoxic single thyroid nodule; R03.0 Elevated blood-pressure reading, without diagnosis of hypertension; E55.9 Vitamin D deficiency, unspecified; M47.816 Spondylosis without myelopathy or radiculopathy, lumbar region; G47.01 Insomnia due to medical condition; Z79.899 Other long term (current) drug therapy | CPT/HCPCS: 96127 ==

== ENCOUNTER 2025-01-02 07:19 | Outpatient (REF) | payer OTHER, SELFPAY ==
--- NOTE | ~2025-01-02 | MM_ITS ---
EXAMINATION: MM SCREENING DIGITAL BREAST TOMOSYNTHESIS, BILATERAL CLINICAL INFORMATION: Screening. Asymptomatic. COMPARISON: Mammography: Comparison is made with available priors TECHNIQUE: Digital breast mammography with tomosynthesis is performed in both the craniocaudal and mediolateral oblique views along with computer-aided detection (CAD). FINDINGS: There are scattered areas of fibroglandular density (ACR BI-RADS breast composition Category b). There are no significant masses, abnormal calcifications, or other abnormalities. MM/MM tomosynthesis screening BI IMPRESSION: No mammographic evidence of malignancy. ASSESSMENT: BI-RADS BI-RADS 1 - Negative RECOMMENDATION: Routine annual mammography screening. 1 year F/U This examination should not preclude the clinical evaluation of a suspicious palpable abnormality. This patient's information was entered into a reminder system with a target due date for their next mammogram. Electronically signed by: Brit Phan DO 01/05/2025 08:08 PM EDMarco Antonio
== END 2025-01-02 07:20 | disposition home or self-care (01) ==
LOC: HO.MAMMO 07:19
PROVIDERS: PCP Internal Medicine; Visit Provider Internal Medicine
DX: Z12.31 Encounter for screening mammogram for malignant neoplasm of breast (principal)
CPT/HCPCS: 77063; 77067

== ENCOUNTER → 2025-01-02 07:30 | Outpatient (BNV) | payer OTHER, SELFPAY | PROVIDERS: PCP Internal Medicine; Visit Provider Internal Medicine | DX: Z12.31 Encounter for screening mammogram for malignant neoplasm of breast (principal) | CPT/HCPCS: 77063; 77067 ==

== ENCOUNTER 2025-06-10 07:38 | Outpatient (REF) | payer OTHER, SELFPAY ==
[2025-06-10 07:53] LABS: MANUAL DIFF FLAG NO
[2025-06-10 08:41] LABS: Hematocrit 42.0 % (37.0-47.0); Hemoglobin 13.5 g/dl (12.0-16.0); Imm Gran Abs Auto 0.01 X10*3/uL (0.00-0.03); Imm Gran Pct Auto 0.2 % (0.0-0.4); Lymphocytes Absolute Auto 1.6 X10*3/uL (1.2-4.9); Mean Corpuscular HGB Conc 32.1 g/dl (31.0-35.0); Mean Corpuscular Hemoglobin 28.5 pg (27.0-33.0); Mean Corpuscular Volume 88.8 fL (80.0-98.0); NRBC Abs Auto 0.000 X10*3/uL (0.0-0.012); NRBC Pct Auto 0.0 /100WBC (0.0-0.2); Platelet Count 215 X10*3/uL (160-400); Red Blood Count 4.73 X10*6/uL (4.20-5.50); White Blood Count 4.8 X10*3/uL (4.8-10.8)
[2025-06-10 08:48] LABS: Hemoglobin A1C 88.4661 umol/L
[2025-06-10 09:32] LABS: Alanine Aminotransferase 16 U/L (0-31); Albumin Level 4.5 g/dL (3.5-5.0); Alkaline Phosphatase 87 U/L (39-117); Anion Gap 13 (12-20); Aspartate Amino Transferase 30 U/L (5-31); Blood Urea Nitrogen 23 mg/dL (9-16); Calcium 9.9 mg/dL (8.4-10.2); Carbon Dioxide 27 mmol/L (22-29); Chloride 105 mmol/L (96-108); Cholesterol 308 mg/dL (<200); Estimated Glomerular Filt Rate 54; HDL Cholesterol 58 mg/dL (>40); Iron 74 mcg/dL (30-160); Percent Iron Saturation 25 % (15-50); Potassium 4.2 mmol/L (3.3-5.1); Sodium 141 mmol/L (135-145); Total Iron Binding Capacity 302 mcg/dL (228-428); Total Protein 7.8 g/dL (6.5-8.0); Triglycerides 206 mg/dL (<150); Unsaturated Iron Binding 228 ug/dL
[2025-06-10 09:52] LABS: Microalbum/Creatinine Ratio Ur 255.5 ug/mg cr (<30)
[2025-06-10 09:54] LABS: Folate 13.0 ng/mL (> or = 4.0); Vitamin B12 623 pg/mL (200-900)
[2025-06-10 11:39] LABS: Appearance Urine Cloudy; Glucose Urine UA Negative (Negative); PH 5.5 (5.0-9.0); Specific Gravity - Urine 1.020 (1.005-1.025); UMIC TRIGGER UACC YES
[2025-06-10 11:48] LABS: UACC Culture Trigger YES
== END 2025-06-10 07:39 | disposition home or self-care (01) ==
LOC: HO.LAB 07:38
PROVIDERS: PCP Internal Medicine; Visit Provider Internal Medicine
DX: E11.9 Type 2 diabetes mellitus without complications (principal); E53.8 Deficiency of other specified B group vitamins; E78.00 Pure hypercholesterolemia, unspecified; D50.9 Iron deficiency anemia, unspecified; E55.9 Vitamin D deficiency, unspecified; D64.9 Anemia, unspecified
CPT/HCPCS: 36415; 80053; 80061; 81001; 82043; 82306; 82570; 82607; 82746; 83036; 83540; 84443; 85025; 87086; 87088; 87186

== ENCOUNTER 2025-06-17 15:22 | Outpatient (AMB) | payer OTHER, SELFPAY ==
[2025-06-17 15:38] VITALS: BP 142/86; PULSE 75; O2SAT 95; BMI 29.2
--- NOTE | 2025-06-17 15:38 | MHC.PC.OV ---
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 Required: No Accompanied by: Self / Same As Patient Allergies codeine (CODEINE) Allergy (Intermediate, Verified 06/17/25 16:23) NAUSEA/DIZZINESS, nausea Medication List - Last Reconciled 06/17/25 by Sergo Sauer MD ascorbic acid (vitamin C) ER 500 mg PO DAILY cholecalciferol (vitamin D3) 25 mcg PO DAILY multivitamin 1 tab PO DAILY trazodone 50 mg PO BEDTIME PRN Tobacco use date assessed: 06/17/25 Fall risk assessment: No Falls in past year Last assessed Fall Risk: 06/17/25 Dental Screening Dental Screen Date: 06/17/25 Did you have a dental visit in the last 12 months?: Yes Did you have a dental problem in the last 6 months where you did not have access to dental care?: No Was dental information given to patient?: Patient has dentist HPI 6mth f/u HPI Details Patient comes in today for her follow up visit She reports being under a lot of stress lately as her 21 yearr old granddaughter in [place] suddenly suffered a stroke recently and none of the doctors who were attending to and treating her have been able to figure out a cause for her recent CVA yet States that her granddaughter and her parents (patient's daughter and son-in-law) have been flying back and forth, first to [place] and now in [facility] to stay with their daughter and help her in any way they can and their whole life has been practically on hold for the past few months due to their daughter's medical issues Her granddaughter is now in the [facility] area recovering from her stroke Patient states that she has not been eating well for the past few months as a result of the above although she did remember to go and get her follow up labs done last week She denies any headaches or dizziness Any chest pains, no increased shortness of breath No nausea/vomiting, no abdominal pain No change in bowel habits noted PFSH Medical History Vitamin D deficiency Primary osteoarthritis of both hips Mixed hyperlipidemia Overweight (BMI 25.0-29.9) Primary osteoarthritis involving multiple joints Lumbar spondylosis Surgical History History of arthroplasty of right hip (~05/2023) Family History Father No problems noted. Mother Dementia Social History Household Members: Spouse [facility]: [facility] Do you presently have visiting nurse or other home services: No Alcohol intake: never Patient Tobacco Use Status: Never used Tobacco e-Cigarette/Vaping Use: Never Used Second Hand Smoke Exposure: No service: No Current occupational status: employed Cognitive needs: No Hearing needs: No Vision needs: Yes Questionnaire PHQ-9 Over the last 2 weeks, how often have you been bothered by any of the following problems? 1. Little interest or pleasure in doing things: not at all 2. Feeling down, depressed, or hopeless: not at all 3. Trouble falling or staying asleep, or sleeping too much: not at all 4. Feeling tired or having little energy: not at all 5. Poor appetite or overeating: not at all 6. Feeling bad about yourself - or that you are a failure or have let yourself or your family down: not at all 7. Trouble concentrating on things, such as reading the newspaper or watching television: not at all 8. Moving or speaking so slowly that other people could have noticed. Or the opposite - being so fidgety or restless that you have been moving around a lot more than usual: not at all 9. Thoughts that you would be better off or of hurting yourself in some way: not at all Total score: 0 Depression Screening Interpretation: Negative Depression Screening Done: Yes 83918 - PHQ-9 Billing: Yes Source: Developed by Drs. Holden Lion, Priya Acharya, Bucky Alcantar and colleagues, with an educational amber from [employer]. Thrive Questionnaire Date Thrive assessed: 06/17/25 I am a: Patient What is your living situation today?: I have a steady place to live Within the past 12 months, did the food you bought not last and you didn't have the money to get more?: Never true Within the past 12 months, did you worry whether your food would run out before you got money to buy more?: Never true Do you have trouble paying for medicines?: No Do you have trouble getting transportation to medical appointments?: No Do you have trouble paying your heating and electricity bill?: No Do you have trouble taking care of your child, family member or friend?: No Do you have trouble with day-to-day activities such as bathing, preparing meals, shopping, managing finances, etc.?: No Are you currently unemployed and looking for a job?: No Are you interested in more education?: No Please select the resources that you would like help with: None Currently or been in a relationship where the following occur: No concerns reported THRIVE Score: 0 AUDIT C Alcohol Use Questionnaire (AUDIT-C) 1. How often do you have a drink containing alcohol?: Never 3. How often do you have six or more drinks on one occasion?: Never Total Score: 0 Score Reviewed/Action Taken: Yes SHREYAS-7 AMB Questionnaire SHREYAS-7 Date SHREYAS - 7 assessed: 06/17/25 Feeling nervous, anxious, or on edge: 0 = Not at all Not being able to stop or control worryin = Not at all Worrying too much about different things: 0 = Not at all Trouble relaxin = Not at all Being so restless that it is hard to sit still: 0 = Not at all Becoming easily annoyed or irritable: 0 = Not at all Feeling afraid as if something awful might happen: 0 = Not at all Total SHREYAS-7 score (0-4 normal; 5-9 mild; 10-14 moderate; 15-21 severe): 0 Source: Developed by Drs. Holden Lion, Priya Acharya, Bucky Alcantar and colleagues, with an educational amber from [employer]. Review of Systems Const Denies chills, Reports difficulty sleeping, Reports fatigue, Denies fever(s) and Denies headache(s) ENT Denies dysphagia, Denies dizziness, Denies otalgia, Denies headache(s), Denies neck pain, Denies odynophagia and Denies sore throat Card Denies chest pain, Denies palpitations and Denies dyspnea Resp Denies chest congestion, Denies cough and Denies dyspnea GI Denies abdominal pain, Reports bloating, Denies constipation, Denies dysphagia, Denies heartburn, Denies diarrhea, Denies nausea, Denies odynophagia and Denies vomiting Denies difficulty voiding, Denies nocturia, Denies dysuria and Denies urinary urgency Musc Denies back pain, Denies arthralgias and Denies neck pain Skin/Breast Denies rash Neuro Denies dizziness and Denies headache(s) Psych Reports anxiety Endo Reports fatigue and Denies palpitations Physical exam (Primary Care) Vital Signs: Last Vital Signs Pulse 75 06/17/25 15:38 BP 142/86 H 06/17/25 15:38 Pulse Ox 95 06/17/25 15:38 Oxygen Delivery Method Room Air 06/17/25 15:38 BMI result Body Mass Index 29.2 Tobacco/Smoking Status: Tobacco use Status Tobacco use date assessed 06/17/25 06/17/25 15:48 Patient Tobacco Use Status Never used Tobacco 06/17/25 15:48 e-Cigarette/Vaping Use Never Used 06/17/25 15:48 PHQ-9: PHQ-9 Score PHQ-9: Total score 0 06/18/25 12:34 Depression Screening Interpretation: Negative Thrive Assessment: Date of Thrive Assessment Date Thrive assessed 06/17/25 06/17/25 15:48 Currently or been in a relationship where the following occur: No concerns reported Const General: no acute distress and alert HENMT Ears: TM's normal bilaterally and EAC's normal Throat: Yes posterior oropharynx normal and Yes tonsils normal Neck Neck: Yes supple and No lymphadenopathy Thyroid: Thyroid normal Resp Auscultation: clear to auscultation bilaterally, no rales and no wheezes Cardio Rate: regular rate Rhythm: regular rhythm Heart sounds: no murmurs GI Palpation (GI): Soft to palpation and nontender Auscultation: normal bowel sounds General: No CVA tenderness Back/Spine/Pelvis Back: No CVA tenderness Thoracic/Lumbar Spine: No lumbar spinal tenderness Skin Rashes: no rashes Extrem General: Yes no clubbing, cyanosis or edema Left lower extremity: hip/thigh (minimal) Details: tenderness Location: of the hip Results Reviewed Results Reviewed: Laboratory Tests 06/10/25 06/10/25 06/10/25 07:44 07:51 11:12 WBC 4.8 Hgb 13.5 D Hct 42.0 D Plt Count 215 D Sodium 141 Potassium 4.2 D Creatinine 0.98 Estimated GFR 54 Fasting Glucose 104 H Hemoglobin A1c % 5.7 Calcium 9.9 D Iron 74 TIBC 302 % Saturation 25 AST 30 ALT 16 Triglycerides 206 H Cholesterol 308 H LDL Cholesterol, Calc 209 H HDL Cholesterol 58 Vitamin B12 623 25-OH Vitamin D Total 65.8 TSH 2.32 Ur Specific [place] 1.020 Urine Protein 30 (1+) H Urine Glucose (UA) Negative Urine Blood Small (1+) H Urine Nitrite Positive H Ur Leukocyte Esterase Large (3+) H Microalb/Creat Ratio 255.5 H Coding Level of Care Code Est Pt Level 4 (21263) Diagnoses Solitary nodule of right lobe of thyroid E04.1 Pulmonary nodules R91.8 Mixed hyperlipidemia E78.2 Elevated blood pressure reading R03.0 Vitamin D deficiency E55.9 Lumbar spondylosis M47.816 Urinary tract infection without hematuria, site unspecified N39.0 Urinary tract infection type: site unspecified Hematuria presence: without hematuria Insomnia due to medical condition G47.01 Insomnia type: due to medical condition Overweight (BMI 25.0-29.9) E66.3 Additional Codes PHQ-9 - 77532 - PHQ-9 Billing: Yes ([id number]) Assessment & Plan Assessment & Plan (1) Solitary nodule of right lobe of thyroid: Code(s): E04.1 - Nontoxic single thyroid nodule Category: Medical Plan: This was first seen incidentally on her chest CT done back in October 2024 - (+) 15 mm nodule in the right thyroid Will send patient for thyroid US for further evaluation (2) Pulmonary nodules: Code(s): R91.8 - Other nonspecific abnormal finding of lung field Category: Medical Plan: Patient had a CT of the soft tissues of the neck done late last year that came out with no acute findings and no abnormalities in the neck but it did shows incidentally some numerous nodular ill-defined opacities in the upper lungs with associated mosaic attenuation which could represent infectious, inflammatory or neoplastic entities A dedicated CT of the chest in 8-12 weeks was ordered for further evaluation of these nodules and patient eventually had her chest CT done a few months ago in October 2024, which revealed (+) interstitial scarring, most pronounced within the bilateral lower lobes. A 15 mm nodule within the right lobe of the thyroid gland and this could be further evaluated with ultrasound (3) Mixed hyperlipidemia: Code(s): E78.2 - Mixed hyperlipidemia Category: Medical Plan: Results of her labs done last week reviewed and discussed with patient - have advised her that all of her cholesterol levels have increased significantly from when they were previously checked in August 2023 Reinforced low cholesterol diet Will have patient recheck her labs and fasting lipids in 6 months for follow up and advised that we may need to try starting her on some cholesterol-lowering medication if her cholesterol numbers do not improve significantly with diet modification alone Will also check her homocysteine level in 6 months to assess her overall cardiovascular risks due to her high cholesterol levels (4) Elevated blood pressure reading: Code(s): R03.0 - Elevated blood-pressure reading, without diagnosis of hypertension Category: Medical Plan: Her BP reading is still elevated today - may likely be partly due to anxiety/stress Have advised patient of goal of systolic BP of at least 130 to 140 mm or less Reinforced low sodium diet (5) Vitamin D deficiency: Code(s): E55.9 - Vitamin D deficiency, unspecified Category: Medical Plan: Continue Vitamin D3 1000 units QD (6) Lumbar spondylosis: Code(s): M47.816 - Spondylosis without myelopathy or radiculopathy, lumbar region Category: Medical Plan: Reinforced activity and weight-lifting restrictions to avoid aggravating her lower back Lumbar spine x-rays done back in 2022 revealed (+) multilevel degenerative changes and L4-L5 grade 1 anterolisthesis without significant change from previous Patient states that her low back pains have been mostly tolerable/manageable lately (7) Urinary tract infection: Code(s): N39.0 - Urinary tract infection, site not specified Category: Medical Qualifiers: Urinary tract infection type: site unspecified Hematuria presence: without hematuria Qualified Code(s): N39.0 - Urinary tract infection, site not specified Plan: Patient is advised that her recent urinalysis showed findings consistent with a urinary tract infection Her urine culture also grew (+) Klebsiella at >[id number] Will go ahead and start her on Macrobid 100 mg BID x 7 days (8) Insomnia: Code(s): G47.00 - Insomnia, unspecified Category: Medical Qualifiers: Insomnia type: due to medical condition Qualified Code(s): G47.01 - Insomnia due to medical condition Plan: Sleep hygiene reinforced Continue Trazodone 50 mg Q HS PRN (9) Overweight (BMI 25.0-29.9): Code(s): E66.3 - Overweight Category: Medical Plan: Reinforced diet; exercise and weight loss are unrealistic given patient's low back pain, physical limitations and age Plan Follow up in 6 months Orders: Orders US thyroid 06/17/25 E04.1 - Nontoxic single thyroid nodule Complete Blood Count Auto Diff 6 Months D64.9 - Anemia, unspecified Comprehensive [place]. Panel Fast 6 Months E78.00 - Pure hypercholesterolemia, unspecified Homocysteine 6 Months Z86.718 - Personal history of other venous thrombosis and embolism TSH reflex Free T4 6 Months E78.00 - Pure hypercholesterolemia, unspecified UA CC w/rflx Micro + Cult 6 Months R30.0 - Dysuria Vitamin D 25-OH Total 6 Months E55.9 - Vitamin D deficiency, unspecified Lipid Panel 6 Months E78.00 - Pure hypercholesterolemia, unspecified Medications: New nitrofurantoin monohyd/m-cryst 100 mg (Macrobid) must administer with a meal/food 100 mg PO Q12H 14 caps 0RF 7 days
== END 2025-06-17 16:44 | disposition home or self-care (01) ==
LOC: HO.HMCH 15:23
PROVIDERS: PCP Internal Medicine; Visit Provider Internal Medicine
DX: E04.1 Nontoxic single thyroid nodule (principal); R91.8 Other nonspecific abnormal finding of lung field; E78.2 Mixed hyperlipidemia; R03.0 Elevated blood-pressure reading, without diagnosis of hypertension; E55.9 Vitamin D deficiency, unspecified; M47.816 Spondylosis without myelopathy or radiculopathy, lumbar region; N39.0 Urinary tract infection, site not specified; G47.01 Insomnia due to medical condition; E66.3 Overweight

== ENCOUNTER → 2025-06-17 15:22 | Outpatient (BNVA) | payer OTHER, SELFPAY | PROVIDERS: PCP Internal Medicine; Visit Provider Internal Medicine | DX: E04.1 Nontoxic single thyroid nodule (principal); R91.8 Other nonspecific abnormal finding of lung field; E78.2 Mixed hyperlipidemia; R03.0 Elevated blood-pressure reading, without diagnosis of hypertension; E55.9 Vitamin D deficiency, unspecified; M47.816 Spondylosis without myelopathy or radiculopathy, lumbar region; N39.0 Urinary tract infection, site not specified; G47.01 Insomnia due to medical condition; E66.3 Overweight; Z68.29 Body mass index [BMI] 29.0-29.9, adult | CPT/HCPCS: 96127 ==